=== PATIENT | male | born 1955 | race Caucasian/White ===

== ENCOUNTER → 2018-03-12 13:58 | Outpatient (REF) | payer MEDICAID, SELFPAY ==
[2018-03-12 18:55] LABS: Anion Gap 12.5 mmol/L (3-11); BUN 11 mg/dL (7-18); CO2 25.5 mmol/L (21.0-32.0); CREATININE 1.04 mg/dL (0.70-1.30); Chloride 103 mmol/L (98-107); Glucose 117 mg/dL (70-100); Magnesium 1.4 mg/dL (1.8-2.4); Potassium 3.5 mmol/L (3.5-5.1); Sodium 141 mmol/L (136-145)
== END ==
LOC: NCHCN 13:58
PROVIDERS: PCP Family Medicine; Visit Provider Family Medicine
DX: I10 Essential (primary) hypertension (principal); E87.6 Hypokalemia; E83.42 Hypomagnesemia
CPT/HCPCS: 80048; 83735

== ENCOUNTER 2018-05-15 15:51 | Outpatient (REF) | payer MEDICAID, SELFPAY ==
[2018-05-15 18:43] LABS: Abs Immature Grans 0.02 k/cumm (0.0-0.09); Absolute Basophil Count 0.02 k/cumm (0.0-0.2); Absolute Eosinophil Count 0.08 k/cumm (0.0-0.7); Absolute Lymphocyte Count 1.94 k/cumm (1.2-3.4); Absolute Monocyte Count 0.55 k/cumm (0.11-0.7); Absolute Neutrophil Count 5.25 k/cumm (1.2-6.7); Basophils % 0.3; HCT 42.9 % (40.0-50.0); HGB 14.9 g/dL (13.5-17.5); Immature Grans % 0.3; Lymphocytes % 24.7; Mean Corp. HGB Concentration 34.7 g/dL (32.0-36.0); Mean Corpuscular Hemoglobin 32.3 pg (27.0-33.0); Mean Corpuscular Volume 92.9 fL (80-95); Mean Platelet Volume 11.6 fL (8.0-11.0); Neutrophils % 66.7; Platelet Count 258 x1000/uL (130-400); RBC 4.62 m/cumm (4.50-6.00); RBC Distribution Width 13.2 % (11.8-14.1); White Blood Cell Count 7.86 k/cumm (4.4-10.8)
[2018-05-15 22:19] LABS: Magnesium 1.8 mg/dL (1.8-2.4)
== END 2018-05-15 16:11 ==
LOC: NCHCN 15:51
PROVIDERS: PCP Family Medicine; Visit Provider Family Medicine
DX: K92.1 Melena (principal)
CPT/HCPCS: 83735; 85025

== ENCOUNTER 2018-10-15 10:42 | Outpatient (REF) | payer MEDICAID, SELFPAY ==
[2018-10-15 19:47] LABS: Abs Immature Grans 0.02 k/cumm (0.0-0.09); Absolute Basophil Count 0.02 k/cumm (0.0-0.2); Absolute Eosinophil Count 0.13 k/cumm (0.0-0.7); Absolute Lymphocyte Count 1.65 k/cumm (1.2-3.4); Absolute Monocyte Count 0.61 k/cumm (0.11-0.7); Absolute Neutrophil Count 5.43 k/cumm (1.2-6.7); Basophils % 0.3; Eosinophils % 1.7; HCT 43.1 % (40.0-50.0); HGB 14.8 g/dL (13.5-17.5); Immature Grans % 0.3; Mean Corp. HGB Concentration 34.3 g/dL (32.0-36.0); Mean Corpuscular Hemoglobin 32.4 pg (27.0-33.0); Mean Corpuscular Volume 94.3 fL (80-95); Mean Platelet Volume 11.9 fL (8.0-11.0); Monocytes % 7.8; Neutrophils % 68.9; Platelet Count 211 x1000/uL (130-400); RBC 4.57 m/cumm (4.50-6.00); RBC Distribution Width 13.1 % (11.8-14.1); White Blood Cell Count 7.86 k/cumm (4.4-10.8)
[2018-10-15 19:53] LABS: ALT 33 U/L (12-78); AST 31 U/L (15-37); Albumin 3.4 g/dL (3.4-5.0); Alkaline Phosphatase 117 U/L (46-116); Anion Gap 11.6 mmol/L (3-11); BUN 16 mg/dL (7-18); Bilirubin, Total 0.5 mg/dL (0.2-1.0); CO2 28.4 mmol/L (21.0-32.0); CREATININE 1.16 mg/dL (0.70-1.30); Calcium 9.1 mg/dL (8.5-10.1); Chloride 101 mmol/L (98-107); Cholesterol 239 mg/dL (50-200); Glucose 116 mg/dL (70-100); HDL Cholesterol 32 mg/dL (40-60); LDL CHOLESTEROL 54 mg/dL (<100); Magnesium 1.3 mg/dL (1.8-2.4); Potassium 3.6 mmol/L (3.5-5.1); Sodium 141 mmol/L (136-145); Total Protein 7.1 g/dL (6.4-8.2); Triglyceride 958 mg/dL (30-150)
== END 2018-10-15 11:02 ==
LOC: NCHCN 10:42
PROVIDERS: PCP Family Medicine; Visit Provider Family Medicine
DX: E78.5 Hyperlipidemia, unspecified (principal); R74.0 Nonspecific elevation of levels of transaminase and lactic acid dehydrogenase [LDH]; E83.42 Hypomagnesemia
CPT/HCPCS: 80053; 80061; 83721; 83735; 85025

== ENCOUNTER 2018-12-11 11:57 | Emergency (ER) | payer MEDICAID, SELFPAY ==
[2018-12-11] VITALS (27 sets, daily range): BP systolic 86–131; BP diastolic 56–86; PULSE 67–102; RESP 1–28; TEMP 36.1; O2SAT 91–97
--- NOTE | 2018-12-11 12:16 | DI.CT_ITS ---
SYMPTOMS/DIAGNOSIS: RIGHT LOW RIB PAIN AND FLANK PAIN, ? STONE NONCONTRAST CT OF THE CHEST, ABDOMEN AND PELVIS: CHEST: Coronary artery calcifications and mild aortic calcifications are seen. There are no pleural or pericardial effusions or evidence of adenopathy. There are emphysematous changes, both paraseptal and panlobular, greatest in the upper lobes. No infiltrates or pulmonary nodules are identified. There is no evidence of pneumothorax. There is an old right lower anterior rib fracture. No acute rib fractures are identified. The thoracic spine shows degenerative changes with no evidence of fracture. ABDOMEN AND PELVIS: The exam is limited by patient motion in the mid portion of the exam, as well as body habitus. The liver shows fatty infiltration. No focal liver lesions or biliary dilatation is seen. The gallbladder, pancreas, adrenals and kidneys are unremarkable. There is no evidence of renal calculi or hydronephrosis. The prostate is not enlarged. The urinary bladder is unremarkable. There are small bilateral fatty-containing inguinal hernias, right greater than left. There is no bowel dilatation or inflammatory change. The evaluation of portions of the bowel is limited due to motion. Diverticula are seen in the sigmoid, which is redundant. The aorta shows calcification but is normal in diameter. Degenerative changes are seen in the lumbar spine, greatest at L2-3 and L1-2. IMPRESSION: No evidence of urinary tract calculi or other acute abnormality. There is fatty infiltration of the liver. Portions of the bowel are not well evaluated due to motion.
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
[2018-12-11 12:34] LABS: Bilirubin Negative (Negative); Blood Negative (Negative); Clarity Clear; Glucose Negative (Negative); Ketones Negative (Negative); Leukocyte Esterase Negative (Negative); Nitrite Negative (Negative); Specific Gravity <= 1.005 (1.005-1.025); Urobilinogen 0.2 EU/dL (Up TO 0.2); pH 5.5 (5-8)
[2018-12-11] MEDS: Acetaminophen 500 MG TAB 1000 MG PO (12:45)
[2018-12-11] MEDS: Lidocaine 5% Patch 1 PATCH TP (12:50)
[2018-12-11] MEDS: methylPREDNISolone SUCC 125 MG VIAL IVP (12:50)
[2018-12-11 12:52] LABS: Abs Immature Grans 0.04 k/cumm (0.0-0.09); Absolute Basophil Count 0.02 k/cumm (0.0-0.2); Absolute Eosinophil Count 0.14 k/cumm (0.0-0.7); Absolute Monocyte Count 0.51 k/cumm (0.11-0.7); Absolute Neutrophil Count 3.75 k/cumm (1.2-6.7); Basophils % 0.3; Eosinophils % 2.3; HCT 46.2 % (40.0-50.0); HGB 15.8 g/dL (13.5-17.5); Immature Grans % 0.6; Lymphocytes % 27.6; Mean Corp. HGB Concentration 34.2 g/dL (32.0-36.0); Mean Corpuscular Hemoglobin 31.9 pg (27.0-33.0); Mean Corpuscular Volume 93.1 fL (80-95); Monocytes % 8.3; Neutrophils % 60.9; Platelet Count 266 x1000/uL (130-400); RBC 4.96 m/cumm (4.50-6.00); RBC Distribution Width 12.9 % (11.8-14.1); White Blood Cell Count 6.16 k/cumm (4.4-10.8)
[2018-12-11 12:58] LABS: ALT 67 U/L (12-78); AST 41 U/L (15-37); Albumin 3.7 g/dL (3.4-5.0); Alkaline Phosphatase 114 U/L (46-116); Anion Gap 10.9 mmol/L (3-11); BUN 11 mg/dL (7-18); Bilirubin, Total 0.5 mg/dL (0.2-1.0); CO2 26.1 mmol/L (21.0-32.0); CREATININE 1.11 mg/dL (0.70-1.30); Chloride 97 mmol/L (98-107); Glucose 104 mg/dL (70-100); Lipase 217 U/L (73-393); Potassium 4.4 mmol/L (3.5-5.1); Sodium 134 mmol/L (136-145); Total Protein 8.5 g/dL (6.4-8.2)
[2018-12-11] MEDS: Albuterol/Ipratropium 3 ML UPD VIAL 6 ML UPD (13:00)
[2018-12-11 13:03] LABS: Calcium 9.8 mg/dL (8.5-10.1)
[2018-12-11 13:05] LABS: Troponin I < 0.02 ng/mL (0.00-0.06)
== END 2018-12-11 16:18 | disposition home or self-care (01) ==
PROVIDERS: Emergency Provider Student in an Organized Health Care Education/Training Program; PCP Family Medicine
DX: R07.81 Pleurodynia (principal); I48.91 Unspecified atrial fibrillation; J44.9 Chronic obstructive pulmonary disease, unspecified; Z79.01 Long term (current) use of anticoagulants; F17.210 Nicotine dependence, cigarettes, uncomplicated
CPT/HCPCS: 36415; 71250; 80053; 83690; 93005; 94640; 96374; 99285; 74176; 81003; 84484; 85025; 93010; J2930; J7620

== ENCOUNTER 2019-01-09 12:40 | Outpatient (REF) | payer MEDICAID, SELFPAY ==
[2019-01-09 13:40] LABS: Cholesterol 258 mg/dL (50-200); HDL Cholesterol 31 mg/dL (40-60); Magnesium 1.6 mg/dL (1.8-2.4); Triglyceride 641 mg/dL (30-150)
[2019-01-09 14:14] LABS: LDL CHOLESTEROL 102 mg/dL (<100)
== END 2019-01-09 13:00 ==
LOC: NCHCN 12:40
PROVIDERS: PCP Family Medicine; Visit Provider Family Medicine
DX: E83.42 Hypomagnesemia (principal); E78.5 Hyperlipidemia, unspecified
CPT/HCPCS: 80061; 83721; 83735

== ENCOUNTER 2019-03-14 00:13 | Outpatient (CLI) | payer MEDICAID, SELFPAY ==
--- NOTE | 2019-03-14 13:20 | DI.CTLCSR_ITS ---
SYMPTOMS/DIAGNOSIS: SMOKER, F17.200 CT CHEST, LOW DOSE LUNG CANCER SCREENING PROTOCOL: CT examination of the chest was performed utilizing low dose lung cancer screening protocol. Images obtained through the upper abdomen show unremarkable appearance of visualized portions of liver and spleen. There are marked pulmonary central lobular and subpleural emphysematous changes. Small areas of apparent scarring noted bilaterally. No pulmonary nodules seen. The tracheobronchial tree appears intact. No mediastinal or hilar adenopathy. No cardiac enlargement. CONCLUSION: Pulmonary emphysema. No pulmonary nodule. Lung-RAD Category: 1- Negative Lung- RAD Management of Findings: Continue annual LDCT screening in 12 months
== END 2019-03-14 00:33 ==
PROVIDERS: PCP Family Medicine; Visit Provider Internal Medicine
DX: F17.200 Nicotine dependence, unspecified, uncomplicated (principal); Z12.2 Encounter for screening for malignant neoplasm of respiratory organs; J43.9 Emphysema, unspecified
CPT/HCPCS: G0297

== ENCOUNTER 2019-04-09 14:21 | Outpatient (REF) | payer MEDICAID, SELFPAY ==
[2019-04-09 14:55] LABS: Anion Gap 11.7 mmol/L (3-11); BUN 14 mg/dL (7-18); CO2 24.3 mmol/L (21.0-32.0); CREATININE 1.02 mg/dL (0.70-1.30); Calcium 8.9 mg/dL (8.5-10.1); Chloride 98 mmol/L (98-107); Cholesterol 188 mg/dL (50-200); Glucose 103 mg/dL (70-100); HDL Cholesterol 29 mg/dL (40-60); Magnesium 1.7 mg/dL (1.8-2.4); Sodium 134 mmol/L (136-145); Triglyceride 516 mg/dL (30-150)
[2019-04-09 15:19] LABS: LDL CHOLESTEROL 85 mg/dL (<100)
== END 2019-04-09 14:41 ==
LOC: NCHCN 14:21
PROVIDERS: PCP Family Medicine; Visit Provider Family Medicine
DX: E83.42 Hypomagnesemia (principal); E87.1 Hypo-osmolality and hyponatremia; E78.5 Hyperlipidemia, unspecified
CPT/HCPCS: 80048; 80061; 83721; 83735

== ENCOUNTER 2019-04-19 15:37 | Outpatient (CLI) | payer MEDICAID, SELFPAY ==
[2019-04-19 16:04] LABS: HCT 42.3 % (40.0-50.0); HGB 14.7 g/dL (13.5-17.5); Mean Corp. HGB Concentration 34.8 g/dL (32.0-36.0); Mean Corpuscular Hemoglobin 32.7 pg (27.0-33.0); Mean Corpuscular Volume 94.2 fL (80-95); Mean Platelet Volume 10.1 fL (8.0-11.0); Platelet Count 243 x1000/uL (130-400); RBC 4.49 m/cumm (4.50-6.00); RBC Distribution Width 13.3 % (11.8-14.1); White Blood Cell Count 8.08 k/cumm (4.4-10.8)
[2019-04-19 16:15] LABS: Anion Gap 11.9 mmol/L (3-11); BUN 12 mg/dL (7-18); C-Reactive Protein 0.91 mg/dL (0.0-0.3); CO2 23.1 mmol/L (21.0-32.0); CREATININE 1.31 mg/dL (0.70-1.30); Chloride 101 mmol/L (98-107); Estimated GFR 55.44 (mL/min/1.73m2); Glucose 122 mg/dL (70-100); Magnesium 1.7 mg/dL (1.8-2.4); Potassium 4.1 mmol/L (3.5-5.1); Sodium 136 mmol/L (136-145)
[2019-04-19 16:16] LABS: Troponin I < 0.05 ng/mL (0.00-0.06)
--- NOTE | 2019-04-19 16:19 | DI.RAD_ITS ---
EXAM: XR CHEST 2V PA LATERAL INDICATION: SOB R06.02. COMPARISON: CHEST 2 VIEWS PA,LAT from 02/08/2017 TECHNIQUE: 2D digital imaging was performed. FINDINGS: The heart is at the upper limits of normal in size. Lungs are generally clear with mild changes of s carring and hyperinflation. No pleural effusion seen. IMPRESSION: No evidence of acute process
== END 2019-04-19 15:57 ==
PROVIDERS: PCP Family Medicine; Visit Provider Family Medicine
DX: R06.02 Shortness of breath (principal)
CPT/HCPCS: 36415; 80048; 85027; 71046; 83735; 84484; 86140

== ENCOUNTER 2020-08-04 00:50 | Outpatient (CLI) | payer MEDICARE, MEDICAID, SELFPAY ==
--- NOTE | 2020-08-04 13:45 | DI.CTLCSR_ITS ---
EXAM: CT CHEST LUNG CANCER SCREEN CLINICAL HISTORY: SCREENING FOR LUNG CA,FORMER SMOKER, Z87.891 TECHNIQUE: Imaging Protocol: Axial computed tomography images with coronal and sagittal reformatted images were created and reviewed COMPARISON: CT CT CHEST LUNG CANCER SCREEN from 03/14/2019 FINDINGS: Tracheobronchial tree: Patent where visualized. Mediastinum and Celia: No dominant adenopathy or fluid collection. Pulmonary parenchyma: No consolidation or dominant measurable mass. Centrilobular and paraseptal emph ysematous changes are present. There is scarring or atelectasis in the left lingula. Lung Nodules: None. Pleura: No effusion or pneumothorax. Heart: The heart is not dilated. Moderate coronary artery calcifications are present. No significant pericardial effusion is present. Aorta: Thoracic aorta non-dilated.Moderate atherosclerosis. Upper abdomen: Unremarkable. Bones: Degenerative changes are seen in the thoracic spine. There is an old healed right rib fractur e. Soft Tissues: Bilateral gynecomastia. IMPRESSION: No pulmonary nodules. Lung RADS Cat 1 - Negative: No nodules and definitely benign nodules Lung-RADS 1.0 CATEGORIES: Category 0 - Prior chest CT exam(s) being located for comparison. Category 1 - Annual screening in 12 months. No nodules or definitely benign nodules. Category 2 - Annual screening in 12 months. Benign appearance. Nodules with low likelihood of becomin g active cancer. Category 3 - 6-month follow-up. Probably benign. Short-term follow-up suggested. Nodules with low lik elihood of becoming active cancer. Category 4A - 3-month follow-up and CT/PET if >8 mm in size. Suspicious finding. Findings which requi re additional testing. Category 4B - Findings which require additional testing and tissue sampling. Suspicious finding. C Added to Any of the Above - History of prior lung cancer screening. S Added to Any of the Above - Significant unexpected other finding. RADIATION DOSE DELIVERED: 97.97mGy.cm Total DLP DATA REPOSITORY: All CT scans at this facility are submitted to the National Radiology Data Registry (NRDR) Dose Index Registry (DIR) with the [employer] (ACR). RADIATION OPTIMIZATION: All CT scans at this facility use at least one of these dose optimization te chniques: automated exposure control; mA and/or kV adjustment per patient size (includes targeted exa ms where dose is matched to clinical indication); or iterative reconstruction.
== END 2020-08-04 01:10 ==
PROVIDERS: PCP Family Medicine; Visit Provider Family Medicine
DX: Z87.891 Personal history of nicotine dependence (principal)
CPT/HCPCS: 71271

== ENCOUNTER 2020-09-21 17:22 | Outpatient (REF) | payer MEDICARE, MEDICAID, SELFPAY ==
[2020-09-21 18:52] LABS: HCT 44.1 % (40.0-50.0); HGB 15.1 g/dL (13.5-17.5); MCH 32.7 pg (27.0-33.0); MCHC 34.2 % (32.0-36.0); MCV 95.5 fL (80-95); MPV 11.3 fL (8.0-11.0); Platelet Count 253 10^3/uL (130-400); RBC 4.62 10^6/uL (4.36-5.78); RDW 12.4 % (11.8-14.1); RDW-SD 43.4 fL; WBC 8.68 10^3/uL (4.4-10.8)
[2020-09-21 19:14] LABS: ALT 27 U/L (16-63); AST 21 U/L (15-37); Albumin 3.4 g/dL (3.4-5.0); Alkaline Phosphatase 96 U/L (46-116); Anion Gap 11.8 mmol/L (3-11); BUN 18 mg/dL (7-18); Bilirubin, Total 0.3 mg/dL (0.2-1.0); CO2 27.2 mmol/L (21.0-32.0); CREATININE 1.1 mg/dL (0.70-1.30); Chloride 100 mmol/L (98-107); Glucose 111 mg/dL (74-106); Magnesium 1.8 mg/dL (1.8-2.4); NT-proBNP 146 pg/mL (<300); Potassium 4.2 mmol/L (3.5-5.1); Sodium 139 mmol/L (136-145); Total Protein 7.4 g/dL (6.4-8.2)
== END 2020-09-21 17:23 | disposition home or self-care (01) ==
LOC: NCHCN 17:22
PROVIDERS: PCP Family Medicine; Visit Provider Family Medicine
DX: R06.02 Shortness of breath (principal); E83.42 Hypomagnesemia; E87.1 Hypo-osmolality and hyponatremia
CPT/HCPCS: 80053; 85027; 83735; 83880

== ENCOUNTER 2021-01-27 19:56 | Outpatient (REF) | payer MEDICARE, MEDICAID, SELFPAY ==
[2021-01-27 20:38] LABS: HCT 47.1 % (40.0-50.0); HGB 15.7 g/dL (13.5-17.5); MCHC 33.3 % (32.0-36.0); MCV 98.9 fL (80-95); MPV 11.6 fL (8.0-11.0); Platelet Count 276 10^3/uL (130-400); RBC 4.76 10^6/uL (4.36-5.78); RDW 12.2 % (11.8-14.1); RDW-SD 44.6 fL; WBC 7.69 10^3/uL (4.4-10.8)
[2021-01-27 20:56] LABS: Anion Gap 8.4 mmol/L (3-11); BUN 25 mg/dL (7-18); CO2 31.6 mmol/L (21.0-32.0); CREATININE 1.3 mg/dL (0.70-1.30); Calcium 9.4 mg/dL (8.5-10.1); Chloride 101 mmol/L (98-107); Estimated GFR 55.58 (mL/min/1.73m2); Glucose 112 mg/dL (74-106); NT-proBNP 103 pg/mL (<300); Sodium 141 mmol/L (136-145)
== END 2021-01-27 19:57 | disposition home or self-care (01) ==
LOC: NCHCN 19:56
PROVIDERS: PCP Family Medicine; Visit Provider Family Medicine
DX: R06.02 Shortness of breath (principal); E87.1 Hypo-osmolality and hyponatremia; E83.42 Hypomagnesemia
CPT/HCPCS: 80048; 85027; 83735; 83880; 84181

== ENCOUNTER 2021-02-23 02:00 | Outpatient (CLI) | payer MEDICARE, MEDICAID, SELFPAY ==
--- NOTE | 2021-02-23 14:00 | DI.US_ITS ---
APPROVED REPORT EXAM: Comprehensive 2D, Doppler, and color-flow Echocardiogram Patient Location: Out-Patient Sr. Director: Marcia Slaughter RDCS (AE) Indications: SOB, COPD, Clinica fluid overload Other Information Study Quality: Technically Difficult. Technically limited study due to body habitus. Conclusion Left Ventricle : The left ventricle is normal size. The left ventricular systolic function is normal. The left ventricular ejection fraction is within the normal range. There is normal left ventricular wall thickness. There is normal LV segmental wall motion. The left ventricular diastolic function is normal. LVEF is 60%. Right Ventricle : The right ventricle is normal size. The right ventricular systolic function is norm al. The RVSP is 17.5 mmHg. Atria : The left atrium size is normal. The right atrium size is normal. Mitral Valve : Mild mitral annular calcification. Mild mitral regurgitation. No evidence of mitral va lve stenosis. Great Vessels : The aortic root is normal in size. The ascending aorta is normal in size. The IVC col lapses <50% with inspiration. Please see remainder of study for further details. Wall motion Left Ventricle The left ventricle is normal size. The left ventricular systolic function is normal. The left ventric ular ejection fraction is within the normal range. There is normal left ventricular wall thickness. T here is normal LV segmental wall motion. The left ventricular diastolic function is normal. There is no ventricular septal defect visualized. LVEF is 60%. Right Ventricle The right ventricle is normal size. The right ventricular systolic function is normal. The RVSP is 17 .5 mmHg. Atria The left atrium size is normal. The right atrium size is normal. The interatrial septum is intact wit h no evidence for an atrial septal defect. Aortic Valve The aortic valve is normal in structure. Aortic valve is trileaflet. There is no aortic valvular sten osis. No aortic regurgitation is present. Mitral Valve Mild mitral annular calcification. No evidence of mitral valve stenosis. Mild mitral regurgitation. Tricuspid Valve The tricuspid valve is normal in structure. There is no tricuspid valve stenosis. Trace tricuspid reg urgitation. Pulmonic Valve The pulmonary valve is normal in structure. There is no pulmonic valvular stenosis. There is no pulmo ailyn valvular regurgitation. Great Vessels The aortic root is normal in size. The ascending aorta is normal in size. The IVC collapses <50% with inspiration. Pericardium There is no pericardial effusion. 2D Dimensions IVSD d PLAX 1.04 cm M: 0.6-1.2 LV Vol A2C d MOD 98.4 mL LVPW d PLAX 1.01 cm M: 0.6 - 1.2 LV Vol A4C d MOD 104.3 mL LVID d PLAX 4.70 cm M: 4.2 - 5.8 LA vol/ BSA A2C s A-L 20.3 mL/m2 LVDs 3.25 cm M: 2.5 - 4.0 LA vol/ BSA A4C s A-L 29.9 mL/m2 Ao Root d 3.16 cm M: 3.1 - 3.7 LA Vol/ BSA Biplane s A-L 25.1 mL/m2 RA Area A4C 16.26 cm2 LA Area A4C s MOD 21.49 cm2 RA Vol/ BSA A4C s A-L 21.1 mL/m2 LA Area A2C s MOD 17.38 cm2 Ao Asc Diam d 3.36 cm M: 2.6 - 3.4 LV EF A4C MOD 60.4 % LV EF Teichholz 58.0 % LV EF A2C MOD 60.4 % LVEF (Issa's) 60.93 % M: 52 - 72 LV EF Biplane MOD 60.9 % LV Volume 76.97 mL M: 62 - 150 SV 64.28 mL LV Volume Index 35.47 mL/m2 M: 34 - 74 SV Index 29.52 mL/m2 LV Vol Biplane MOD 105.5 mL FS 30.50 % M-Mode TAPSE 2.22 cm (M/F) >1.7 LV Diastology MV E' medial 0.088 (>0.07 m/s) E/A Ratio 0.9 LV E/e MED 10.00 (<14) MV E Vmax 0.88 (0.4-1.3 m/s) MV E' lateral 0.108 (>0.1 m/s) MV A Vmax 0.95 (0.4-1.3 m/s) LV E/e LAT 8.20 (<14) MV E/A Ratio 0.92 MV E/E' medial 10.05 MV E/E' lateral 8.22 Aortic Valve LVOT Area 3.61 cm2 AoV Area Vmax 3.11 cm2 LVOT Vmax 1.13 m/s AoV Area/ BSA (Vmax) 1.43 cm2/m2 LVOT Mean Wale. 0.71 m/s JACQUE Mean Wale. 2.97 cm2 LVOT Peak Grad 5.1 mmHg JACQUE Mean Wale. Index 1.36 cm2/m2 LVOT Mean Grad 2.4 mmHg LVOT VTI 0.172 m LVOT Diam s 2.10 cm AoV Vmax 1.31 m/s Velocity Ratio 0.86 AoV Mean Wale. 0.87 m/s AoV Peak Grad 6.9 mmHg LVOT SV 62.12 mL AoV Mean Grad 3.5 mmHg AoV VTI 0.214 m AoV Area VTI 2.90 cm2 AoV Area/ BSA (VTI) 1.33 cm/m2 Mitral Valve MV DT 239 (160-240 msec) MR Vmax 4.84 m/s MV PHT 69 msec MR VTI 1.407 m MV Area PHT 3.17 cm2 MR Peak Grad 93.7 mmHg MV VTI 0.328 m MR Mean Grad 73.8 mmHg MV Area VTI 1.89 (4.0-6.0 cm2) Pulmonary Valve PV Vmax 1.05 (0.5-1.5 m/s) RVOT Peak Gr. 3.39 mmHg PV Peak Grad 4.4 mmHg RVOT Mean Gr. 1.95 mmHg PV Mean Grad 2.5 mmHg RVOT VTI 0.153 m PV VTI 0.171 m RVOT Vmax 0.92 m/s Tricuspid Valve TR Peak Grad 14.5 mmHg TR Vmax 1.91 m/s RA Pressure 3.00 mmHg RVSP (TR) 17.5 mmHg
== END 2021-02-23 02:20 ==
PROVIDERS: PCP Family Medicine; Visit Provider Family Medicine
DX: R06.02 Shortness of breath (principal); J44.9 Chronic obstructive pulmonary disease, unspecified; I34.0 Nonrheumatic mitral (valve) insufficiency; E87.70 Fluid overload, unspecified
CPT/HCPCS: 93306

== ENCOUNTER → 2021-11-19 00:15 | Outpatient (CLI) | payer MEDICARE, MEDICAID, SELFPAY ==
--- NOTE | 2021-11-19 13:04 | DI.CTLCSR_ITS ---
Exam(s) CT CHEST LUNG CANCER SCREEN EXAM: CT CHEST LUNG CANCER SCREEN CLINICAL HISTORY: SCREENING FOR LUNG CA, FORMER SMOKER, Z87.891 TECHNIQUE: Imaging Protocol: Axial computed tomography images with coronal and sagittal reformatted images were created and reviewed COMPARISON: CT CT CHEST LUNG CANCER SCREEN from 08/04/2020 FINDINGS: Tracheobronchial tree: Patent where visualized. Mediastinum and Celia: No dominant adenopathy or fluid collection. Pulmonary parenchyma: No consolidat ion or dominant measurable mass. Paraseptal and centrilobular emphysema greater in the upper lobes. No infiltrates Lung Nodules: Circumscribed 4 millimeter right upper lobe nodule. Additional peripheral 3 x 4 millim eter nodule right upper lobe. Not seen previously. Pleura: No effusion or pneumothorax. Heart: The heart is not dilated. Moderate coronary artery calcifications are seen. Aorta: Thoracic aorta non-dilated. Mild atherosclerotic changes. Upper abdomen: Unremarkable. Bones: Degenerative changes. Soft Tissues: Bilateral gynecomastia. IMPRESSION: Two 4 millimeter new nodules right upper lobe Lung RADS Cat 3 - Probably Benign: Probably benign finding(s) - short term follow-up suggested; inclu de nodules with a low likelihood of becoming a clinically active cancer. Lung-RADS 1.0 CATEGORIES: Category 0 - Prior chest CT exam(s) being located for comparison. Category 1 - Annual screening in 12 months. No nodules or definitely benign nodules. Category 2 - Annual screening in 12 months. Benign appearance. Nodules with low likelihood of becomin g active cancer. Category 3 - 6-month follow-up. Probably benign. Short-term follow-up suggested. Nodules with low lik elihood of becoming active cancer. Category 4A - 3-month follow-up and CT/PET if >8 mm in size. Suspicious finding. Findings which requi re additional testing. Category 4B - Findings which require additional testing and tissue sampling. Category 4X - Category 3 or 4 nodules with additional features or imaging findings that increases the suspicion of malignancy. Modifier S- Potentially clinically significant findings (non lung cancer) RADIATION DOSE DELIVERED: 101.57mGy.cm Total DLP 2.21mGy CTDIvol DATA REPOSITORY: All CT scans at this facility are submitted to the National Radiology Data Registry (NRDR) Dose Index Registry (DIR) with the [employer] (ACR). RADIATION OPTIMIZATION: All CT scans at this facility use at least one of these dose optimization te chniques: automated exposure control; mA and/or kV adjustment per patient size (includes targeted exa ms where dose is matched to clinical indication); or iterative reconstruction.
== END ==
PROVIDERS: PCP Family Medicine; Visit Provider Family Medicine
DX: Z12.2 Encounter for screening for malignant neoplasm of respiratory organs (principal); Z87.891 Personal history of nicotine dependence; J43.2 Centrilobular emphysema; R91.8 Other nonspecific abnormal finding of lung field
CPT/HCPCS: 71271

== ENCOUNTER 2022-01-03 16:21 | Outpatient (REF) | payer MEDICARE, MEDICAID, SELFPAY ==
[2022-01-03 16:57] LABS: Anion Gap 13.4 mmol/L (3-11); BUN 13 mg/dL (7-18); CO2 22.6 mmol/L (21.0-32.0); CREATININE 0.9 mg/dL (0.70-1.30); Calcium 9.1 mg/dL (8.5-10.1); Chloride 103 mmol/L (98-107); Cholesterol 195 mg/dL (<200); Glucose 105 mg/dL (74-106); HDL Cholesterol 33 mg/dL (40-60); Magnesium 1.8 mg/dL (1.8-2.4); Potassium 4.6 mmol/L (3.5-5.1); Sodium 139 mmol/L (136-145); Triglyceride 671 mg/dL (<150)
[2022-01-03 17:15] LABS: LDL CHOLESTEROL 79 mg/dL (<100)
== END 2022-01-03 16:22 | disposition home or self-care (01) ==
LOC: NCHCN 16:21
PROVIDERS: PCP Family Medicine; Visit Provider Family Medicine
DX: I10 Essential (primary) hypertension (principal); E78.5 Hyperlipidemia, unspecified; E83.42 Hypomagnesemia
CPT/HCPCS: 80048; 80061; 83721; 83735

== ENCOUNTER 2023-02-24 17:41 | Outpatient (REF) | payer MEDICARE, MEDICAID, SELFPAY ==
[2023-02-24 17:48] LABS: Hemoglobin A1C 5.7 % (<5.7)
[2023-02-24 18:29] LABS: Anion Gap 10.5 mmol/L (3-11); BUN 14 mg/dL (7-18); CO2 27.5 mmol/L (21.0-32.0); Calcium 9.1 mg/dL (8.5-10.1); Chloride 102 mmol/L (98-107); Cholesterol 149 mg/dL (<200); Estimated GFR 83.01 (mL/min/1.73m2); Glucose 108 mg/dL (74-106); HDL Cholesterol 34 mg/dL (40-60); Magnesium 1.8 mg/dL (1.8-2.4); Potassium 5.1 mmol/L (3.5-5.1); Sodium 140 mmol/L (136-145); Triglyceride 448 mg/dL (<150)
[2023-02-24 18:52] LABS: LDL CHOLESTEROL 52 mg/dL (<100)
== END 2023-02-24 17:42 | disposition home or self-care (01) ==
LOC: NCHCN 17:41
PROVIDERS: PCP Family Medicine; Visit Provider Family Medicine
DX: E83.42 Hypomagnesemia (principal); R73.03 Prediabetes; I10 Essential (primary) hypertension; E78.5 Hyperlipidemia, unspecified
CPT/HCPCS: 80048; 80061; 83721; 83036; 83735

== ENCOUNTER 2023-03-26 11:45 | Emergency (ER) | payer MEDICARE, SELFPAY ==
--- NOTE | 2023-03-26 11:45 | RT.EKG_ITS ---
APPROVED REPORT Exam: Resting ECG Reason for Exam: chest pain Patient Location: E HR:143 bpm ECG Measurements Heart Rate 143 AXIS NH [id number] P [id number] QRSd 123 QRS 180 QT 313 T -16 QTc 484 Conclusion Atrial flutter with 2:[address]. [address] segment or T wave abnormalities to suggest occlusive MN
[2023-03-26 11:47] VITALS: BP 115/76; PULSE 144; RESP 30; O2SAT 93
[2023-03-26 12:15] VITALS: BP 106/60; PULSE 158
[2023-03-26] MEDS: dilTIAZem 25 MG/5 ML VIAL 10 MG IVP ×2 (12:15→12:30)
[2023-03-26 12:30] VITALS: BP 102/60; PULSE 128
[2023-03-26 12:33] LABS: Abs Immature Grans 0.02 10^3/uL (0.0-0.06); Absolute Basophil Count 0.03 10^3/uL (0.0-0.2); Absolute Lymphocyte Count 0.96 10^3/uL (1.2-3.4); Absolute Monocyte Count 0.43 10^3/uL (0.1-0.8); Absolute Neutrophil Count 5.12 10^3/uL (1.2-6.7); Basophils % 0.5; Eosinophils % 1.5; HCT 47.5 % (40.0-50.0); HGB 15.6 g/dL (13.5-17.5); Immature Grans % 0.3; Lymphocytes % 14.4; MCH 30.4 pg (27.0-33.0); MCHC 32.8 % (32.0-36.0); MCV 93 fL (80-95); MPV 9.3 fL (8.0-11.0); Monocytes % 6.5; Neutrophils % 76.8; Platelet Count 204 10^3/uL (130-400); RBC 5.13 10^6/uL (4.36-5.78); RDW 13.5 % (11.8-14.1); RDW-SD 46.5 fL; WBC 6.66 10^3/uL (4.4-10.8)
[2023-03-26] MEDS: dilTIAZem 30 MG TAB 60 MG PO (12:49)
[2023-03-26 12:53] LABS: ALT 20 U/L (16-63); AST 19 U/L (15-37); Albumin 3.1 g/dL (3.4-5.0); Alkaline Phosphatase 100 U/L (46-116); BUN 17 mg/dL (7-18); Bilirubin, Total 0.4 mg/dL (0.2-1.0); Calcium 9.1 mg/dL (8.5-10.1); Chloride 102 mmol/L (98-107); Estimated GFR 83.01 (mL/min/1.73m2); Glucose 137 mg/dL (74-106); Magnesium 1.6 mg/dL (1.8-2.4); Potassium 4.2 mmol/L (3.5-5.1); Sodium 138 mmol/L (136-145); Total Protein 7.3 g/dL (6.4-8.2); Troponin I < 50 ng/L (<or=60)
--- NOTE | 2023-03-26 12:55 | ED.GENADUL_ITS ---
Discharge Plan Disposition Patient Disposition: Against Medical Advice Discharge Details Clinical Impression: Atrial fibrillation with rapid ventricular response Primary Care Provider: Ricky Monteiro ED Provider: Neftali Douglas Home Meds and New Rx's Prescriptions: New diltiazem HCl 180 mg capsule,extended release 24 hr 180 mg PO DAILY Qty: 10 0RF Continued furosemide 40 MG tablet 80 mg PO DAILY AM Qty: 90 metoprolol tartrate 25 MG tablet 50 mg PO BID Qty: 180 nitroglycerin [Nitrostat] 0.4 mg tablet, sublingual 0.4 mg sublingual Q5M PRN Rx Instructions: do not exceed 3 doses per episode gemfibrozil 600 MG tablet 600 mg PO BID losartan 100 MG tablet 100 mg PO DAILY omeprazole 20 MG capsule,delayed release(DR/EC) 20 mg PO DAILY albuterol sulfate [ProAir HFA] 200 PUFF HFA aerosol inhaler 2 puff Inhalation Q4H PRN PRN magnesium oxide 400 MG tablet 400 mg PO BID Qty: 20 0RF fluticasone propion-salmeterol [Advair Diskus] 1 EACH blister with device 1 puff Inhalation DAILY potassium chloride 10 mEq Tablet Extended Release 10 meq PO DAILY Xarelto 20 mg Tablet 20 mg PO DAILY lidocaine [Lidoderm] 1 PATCH patch 1 patch Topical Q24H Qty: 4 0RF Combivent 200 PUFF aerosol 2 puff Inhalation DAILY Spiriva with HandiHaler 1 PUFF capsule, w/inhalation device 1 puff Inhalation DAILY 0RF Discharge Instructions Instructions: A-fib (Atrial Fibrillation) (ED) Additional Instructions: At this time you have chosen to leave AGAINST MEDICAL ADVICE. We discussed admission to the hospital given your excessively high heart rate and shortness of breath. Given that you have chosen to go home we are starting you on a new controlled release medication to better control your heart rate until you can follow-up with your primary care provider. This medication is diltiazem and the pill given in the emergency department should be taken around 6:00 this evening. While on this medication please monitor for any increase of bleeding or bruising given that you are on blood thinners Given that you have chosen to not be admitted to the hospital please continue to take all your other normally prescribed medications and it is very important to follow-up with your primary care provider as soon as possible If you change your mind or have any new or significant worsening of symptoms return to the emergency department for reassessment Referrals: Ricky Monteiro [Primary Care Provider] - 2 days (Please follow-up with your primary care provider in the next 1 to 2 days) Discharge Data Discharge Date/Time-TO BE ENTERED AT DEPARTURE: 03/26/23 14:56 Medical Decision Making Patient presenting to the emergency department for chief complaint of shortness of breath and chest pain. Patient states that yesterday he was moving a very large safe and during exertion started having some chest pain and shortness of breath. Patient states he took all of his normal medications but this morning continue to have shortness of breath worse than normal so he came to the emergency department. Patient has past medical history of hypertension, A-fib, COPD, CHF. Patient does state that he did not take his fluid pill because he knew he was going to be here and was concerned about having to urinate excessively. Physical exam shows a irregular fast rhythm with rate in the 150s. Clear to diminished lung sounds otherwise patient is stable. We will plan on checking labs and EKG. Based upon monitor patient is in A-fib and flutter. Will order IV diltiazem. Please see physician interpretation of EKG but upon my review patient is in mix of A-fib a flutter, no obvious ischemic findings. Reviewed patient's labs and CBC is overall unremarkable nondiagnostic, CMP shows slightly low magnesium at 1.6 which we will orally replete. Troponin is negative/nondetected and BNP is slightly elevated at 628 all other labs are nondiagnostic. Patient reassessed after total of 20 mg IV Dilt was given and rate is now averaging mid 90s compared to 150s. I feel this is reassuring and patient was given 60 mg p.o. immediate release diltiazem . Chest x-ray was performed and shows no acute findings. Patient reassessed and states significant improvement of symptoms. Did discuss with patient admission given slightly elevated BNP and concern for return of rapid heart rate with diltiazem wearing off. Patient states that he is refusing admission at this time, patient ANO x4 and does have decision-making capacity. After full discussion of risk versus benefit patient still adamant that he will not be admitted. Will place patient on urgent referral to primary care to follow-up and will place patient on controlled release diltiazem 180 mg. Patient informed to watch for any bleeding due to noted potential reaction but I do feel that benefit outweighs risk. After discussion of diagnosis and plan of care patient has no further needs, questions, or concerns and states clear understanding to return to the emergency department for any worsening symptoms. This documentation was generated using [employer] system, please disregard any oddities of phrase or misspellings. Imaging Data Radiologic Study: Imaging: X-Ray Radiologist's impression: Exam(s) PROCEDURE INFORMATION: Exam: XR Chest Exam date and time: 03/26/2023 1:08 PM Age: 67 years old Clinical indication: Other: SOB.No history of trauma or recent surgery is provided. TECHNIQUE: Imaging protocol: Radiologic exam of the chest. 2image(s) are provided. Views: 2 views. COMPARISON: 1. CT CHEST LUNG CANCER SCREEN 11/19/2021 1:[address] CHEST LUNG CANCER SCREEN 08/04/2020 1:43 PM 3. CR XR CHEST 2V PA LATERAL 04/19/2019 4:14 PM FINDINGS: Lungs: There is some bandlike subsegmental atelectasis versus post inflammatory scarring demonstrated. This is left basilar and lingular predominance similar overall. No lobar consolidation is appreciated. There is some mild chronic air trapping appearance along with some bleb related change. Pleural spaces: No interval pneumothorax or pleural effusion is appreciated. Heart/Mediastinum: The cardiomediastinal silhouette is upper normal in size.This can be seen with central averaging as well as olga enlargement.No cardiac decompensation is appreciated. Diaphragm: The hemidiaphragms are symmetric. Bones/joints: Osseous alignment is maintained.No interval displaced fracture or dislocation is appreciated. There is some thoracic spondylosis similar overall. There are some chronic appearing rib deformity similar overall. Soft tissues: No radiopaque foreign body or subcutaneous emphysema is appreciated. There is some skin fold averaging. Other findings: No other significant interval changes are appreciated. IMPRESSION: There is some mild chronic air trapping appearance similar overall along with chronic scarring of the left lung base. No interval lobar consolidation or acute cardiopulmonary changes are appreciated. Lab Data Lab results reviewed: Yes I reviewed the patient's lab results. HPI General Mode of arrival: ambulatory . Date/Time Provider Initiated Documentation: 03/26/23 11:54 . Limitations to Documentation: no limitations . Information obtained by: patient and RN notes reviewed . History of Present Illness 67 year old M presents to the emergency department with the chief complaint of Chest pain, shortness of breath, described as moderate and similar to prior episodes, and is localized to the chest. Patient reports no radiation. Patient started experiencing this day(s) (1) and it has been constant. No relieving factors improve symptom(s), Other factors that worsen symptoms (Lifting heavy object) . Patient notes no other symptoms.. Patient did receive the following treatments prior to arrival, none Related Data Home Medications Medication Instructions Recorded Confirmed gemfibrozil 600 mg tablet 600 mg PO BID 08/26/13 12/11/18 losartan 100 mg tablet 100 mg PO DAILY 10/13/14 12/11/18 albuterol sulfate 90 mcg/actuation 2 puff inhalation Q4H PRN PRN 08/25/15 12/11/18 aerosol inhaler (ProAir HFA) omeprazole 20 mg capsule,delayed 20 mg PO DAILY 08/25/15 12/11/18 release magnesium oxide 400 mg (241.3 mg 400 mg PO BID ##20 12/24/15 12/11/18 magnesium) tablet fluticasone 500 mcg-salmeterol 50 1 puff inhalation DAILY 06/29/16 12/11/18 mcg/dose blistr powdr for inhalation (Advair Diskus) ipratropium 18 mcg-albuterol 103 2 puff inhalation DAILY 08/17/16 12/11/18 mcg/actuation aerosol inhaler (Combivent) tiotropium bromide 18 mcg capsule 1 puff inhalation DAILY 08/18/16 12/11/18 with inhalation device (Spiriva with HandiHaler) furosemide 40 mg tablet 80 mg PO DAILY AM #90 tab-caps 08/31/16 12/11/18 metoprolol tartrate 25 mg tablet 50 mg PO BID #180 tab-caps 08/31/16 12/11/18 lidocaine 5 % topical patch 1 patch topical Q24H #4 patches 12/11/18 (Lidoderm) potassium chloride 10 mEq 10 meq PO DAILY 12/11/18 12/11/18 tablet,extended release rivaroxaban 20 mg tablet (Xarelto) 20 mg PO DAILY 12/11/18 12/11/18 nitroglycerin 0.4 mg sublingual 0.4 mg sublingual Q5M PRN 03/02/23 tablet (Nitrostat) diltiazem HCl 180 mg capsule,24 180 mg PO DAILY #10 caps 03/26/23 hr,extended release Previous Rx's Medication Instructions Recorded magnesium oxide 400 mg (241.3 mg 400 mg PO BID ##20 12/24/15 magnesium) tablet tiotropium bromide 18 mcg capsule 1 puff inhalation DAILY 08/18/16 with inhalation device (Spiriva with HandiHaler) lidocaine 5 % topical patch 1 patch topical Q24H #4 patches 12/11/18 (Lidoderm) diltiazem HCl 180 mg capsule,24 180 mg PO DAILY #10 caps 03/26/23 hr,extended release Allergies Allergy/AdvReac Type Severity Reaction Status Date / Time Sulfa (Sulfonamide Allergy Intermediate Skin Rash Unverified 03/26/23 11:52 Antibiotics) ciprofloxacin Allergy Itching Unverified 03/26/23 11:52 lisinopril AdvReac Mild cough Unverified 03/26/23 11:52 mold AdvReac Uncoded 03/26/23 11:52 General Stated Complaint: SOB ERICKA: 3 Review of Systems Constitutional Constitutional: Denies chills, Denies fever(s), Denies headache(s) and Reports malaise ENT Ears, Nose, Mouth, and Throat: Denies headache(s) Cardiovascular Cardiovascular: Reports chest pain, Reports chest pain at rest, Reports chest pain with activity, Denies syncope, Reports rapid heart rate, Reports lighth eadedness, Reports dyspnea and Reports dyspnea on exertion Respiratory Respiratory: Reports cough (Chronic unchanged), Reports dyspnea and Reports dysp mira on exertion Gastrointestinal Gastrointestinal: Denies abdominal pain, Denies nausea and Denies vomiting Integumentary/Breasts Skin/Breast: Reports rash Neurologic Neurologic: Denies syncope and Denies headache(s) PFSH All Active Problems (Updated 03/26/23 @ 14:29 by Neftali Douglas, [place]) Atrial fibrillation with rapid ventricular response (Acute) GERD (gastroesophageal reflux disease) (Chronic) Hypertriglyceridemia (Chronic) HTN (hypertension) (Chronic) Hypomagnesemia (Chronic) Atrial fibrillation (Chronic) Cigarette smoker (Chronic) Leg edema (Chronic) Tooth abscess (Acute) COPD (chronic obstructive pulmonary disease) (Chronic) Chest pain (Acute) Dog bite of hand (Acute) Medical History Alcohol abuse, in remission Blepharitis Blepharitis of eyelid of left eye Former smoker History of hypokalemia Hx of adenomatous colonic polyps Obesity Sleep apnea Ulnar neuropathy Social History Smoking/Tobacco Use Status: Current every day Tobacco Type: cigarettes Smoking packs per day: 1 Smoking cigarettes per day: 20.0 Smoking risk assessment performed?: Yes Alcohol Intake: current Alcohol Intake frequency: 3 or more drinks per day Alcohol type: beer Drug use: Never Substance use type: does not use Housing: apartment Do you feel safe at home: Yes Do you feel safe in your relationship?: Yes Exam Const General: cooperative, comfortable and not diaphoretic Orientation: alert, awake and oriented x3 Limitations: mental status not altered Neck Neck: normal visual inspection, full ROM, trachea midline, supple and no anterior neck swelling Carotids: normal carotid upstroke Chest Chest: normal inspection of the chest Resp Effort & Inspection: normal respiratory effort and able to speak in complete sentences Auscultation: clear to auscultation bilaterally and diminished lung sounds bilaterally in the lower lung urias Cardio Palpation: normal PMI Rate: tachycardic Rhythm: abnormal rhythm irregularly irregular Heart Sounds: S1 normal, S2 normal, no click, no gallops, no murmurs and no rubs Bruits: no carotid bruits GI Inspection: obesity Neuro General: patient alert, patient awake, patient oriented x3, tone normal and moves all extremities Course Vital Signs Vital signs: Vital Signs Pulse 144 H 03/26/23 11:47 Respiratory Rate 30 H 03/26/23 11:47 Blood Pressure 115/76 03/26/23 11:47 Pulse Oximetry 93 03/26/23 11:47 Pulse 128 H 03/26/23 12:30 Respiratory Rate 30 H 03/26/23 11:47 Blood Pressure 102/60 03/26/23 12:30 Pulse Oximetry 93 03/26/23 11:47 Oxygen Delivery Method Room Air 03/26/23 11:47 Oxygen Flow Rate 0 03/26/23 11:47 Pain Level 5 03/26/23 11:47 Lab/Test Results Lab/Test Results: Laboratory Tests Range/Units 03/26/23 12:20 WBC (4.4-10.8) 10^3/uL 6.66 RBC (4.36-5.78) 10^6/uL 5.13 Hgb (13.5-17.5) g/dL 15.6 Hct (40.0-50.0) % 47.5 MCV (80-95) fL 93 MCH (27.0-33.0) pg 30.4 MCHC (32.0-36.0) % 32.8 RDW (11.8-14.1) % 13.5 Plt Count (130-400) 10^3/uL 204 MPV (8.0-11.0) fL 9.3 Immature Gran % 0.3 Neutrophils % 76.8 Lymphocytes % 14.4 Monocytes % 6.5 Eosinophils % 1.5 Basophils % 0.5 Nucleated RBC % (0.0-0.3) % 0.0 Absolute Neutrophils (1.2-6.7) 10^3/uL 5.12 Absolute Lymphocytes (1.2-3.4) 10^3/uL 0.96 L Absolute Monocytes (0.1-0.8) 10^3/uL 0.43 Absolute Eosinophils (0.0-0.7) 10^3/uL 0.10 Absolute Basophils (0.0-0.2) 10^3/uL 0.03
[2023-03-26 12:59] LABS: NT-proBNP 628 pg/mL (<300)
--- NOTE | 2023-03-26 13:00 | DI.RAD_ITS ---
Exam(s) XR CHEST 2V PA LATERAL EXAM: XR CHEST 2V PA LATERAL CLINICAL HISTORY: Shortness of breath TECHNIQUE: 2D digital imaging was performed of the chest. Two images were obtained. PA and lateral views were obtained. COMPARISON: CR,XR XR CHEST 2V PA LATERAL from 04/19/[address] CHEST LUNG CANCER SCREEN from 11/19/2021 FINDINGS: MEDIASTINUM: Normal. HEART: Normal. PULMONARY VASCULATURE: Normal. LUNGS: There is stable scarring or atelectasis in the left lung. No new infiltrates are seen. The l ungs show mild air trapping with hyperexpansion of the lungs and flattened diaphragms. PLEURAL SPACE: No pleural effusion or pneumothorax. BONE:Within normal limits for the patient's age. OTHER FINDINGS:Normal. IMPRESSION: No acute pulmonary findings. DATA REPOSITORY: RADIATION DOSE DELIVERED:
[2023-03-26 13:40] VITALS: RESP 18
--- NOTE | 2023-03-26 13:40 | DI.VRAD_ITS ---
PROCEDURE INFORMATION: Exam: XR Chest Exam date and time: 03/26/2023 1:08 PM Age: 67 years old Clinical indication: Other: SOB.No history of trauma or recent surgery is provided. TECHNIQUE: Imaging protocol: Radiologic exam of the chest. 2image(s) are provided. Views: 2 views. COMPARISON: 1. CT CHEST LUNG CANCER SCREEN 11/19/2021 1:[address] CHEST LUNG CANCER SCREEN 08/04/2020 1:43 PM 3. CR XR CHEST 2V PA LATERAL 04/19/2019 4:14 PM FINDINGS: Lungs: There is some bandlike subsegmental atelectasis versus post inflammatory scarring demonstrated. This is left basilar and lingular predominance similar overall. No lobar consolidation is appreciated. There is some mild chronic air trapping appearance along with some bleb related change. Pleural spaces: No interval pneumothorax or pleural effusion is appreciated. Heart/Mediastinum: The cardiomediastinal silhouette is upper normal in size.This can be seen with central averaging as well as olga enlargement.No cardiac decompensation is appreciated. Diaphragm: The hemidiaphragms are symmetric. Bones/joints: Osseous alignment is maintained.No interval displaced fracture or dislocation is appreciated. There is some thoracic spondylosis similar overall. There are some chronic appearing rib deformity similar overall. Soft tissues: No radiopaque foreign body or subcutaneous emphysema is appreciated. There is some skin fold averaging. Other findings: No other significant interval changes are appreciated. IMPRESSION: There is some mild chronic air trapping appearance similar overall along with chronic scarring of the left lung base. No interval lobar consolidation or acute cardiopulmonary changes are appreciated. Dictated and Authenticated by: George Gonzalez MD. Ordering:SARAH Lindsay MD
[2023-03-26] MEDS: Magnesium Oxide 400 MG TAB PO (13:47)
--- NOTE | 2023-03-26 18:00 | NUR.NOTE ---
Referral made per Jarrod Douglas to PCP follow up in 24-48 hrs for Afib with RVR and patient left AMA. Put the referral in care manger's nusrat for follow up assistance.Nursing Note:
== END 2023-03-26 14:56 | disposition left against medical advice (07) ==
PROVIDERS: Emergency Provider Nurse Practitioner Family; PCP Family Medicine
DX: R06.02 Shortness of breath (principal); R07.9 Chest pain, unspecified; I48.91 Unspecified atrial fibrillation; Z53.29 Procedure and treatment not carried out because of patient's decision for other reasons; Z79.899 Other long term (current) drug therapy; Z79.01 Long term (current) use of anticoagulants; I50.9 Heart failure, unspecified; J44.9 Chronic obstructive pulmonary disease, unspecified
CPT/HCPCS: 36415; 80053; 93005; 96374; 99285; 71046; 83735; 83880; 84484; 85025; 93010; 99283

== ENCOUNTER 2023-04-06 08:52 | Outpatient (CLI) | payer MEDICARE, SELFPAY ==
--- NOTE | 2023-04-06 08:45 | RT.EKG_ITS ---
APPROVED REPORT Exam: Resting ECG Reason for Exam: cardiac evaluation Patient Location: O HR:82 bpm ECG Measurements Heart Rate 82 AXIS VT [id number] P [id number] QRSd 124 QRS 91 QT 326 T 14 QTc 381 Conclusion Atrial flutter Nonspecific intraventricular conduction delay...QRSd >115mS, not LBBB/RBBB Anteroseptal infarct, old...Q >40mS, V1-V2
== END 2023-04-06 08:53 | disposition home or self-care (01) ==
LOC: DI.CARD 08:52
PROVIDERS: PCP Family Medicine; Visit Provider Internal Medicine Cardiovascular Disease
DX: E78.1 Pure hyperglyceridemia (principal); I10 Essential (primary) hypertension
CPT/HCPCS: 93010

== ENCOUNTER 2023-04-06 13:08 | Outpatient (RCR) | payer MEDICARE, SELFPAY ==
--- NOTE | 2023-04-06 13:15 | HOLTER_ITS ---
APPROVED REPORT Conclusion This is a 48-hour Holter monitor Patient was in atrial flutter throughout with an average heart rate of 88. Minimum was 78, maximum 1 44 There were rare ventricular ectopic beats There were no pauses, no high-grade AV block
== END 2023-04-29 23:59 | disposition home or self-care (01) ==
LOC: CARDOPNVT 13:08
PROVIDERS: PCP Family Medicine; Visit Provider Family Medicine
DX: R55 Syncope and collapse (principal)
CPT/HCPCS: 93227; 93225; 93226

== ENCOUNTER → 2023-04-06 13:31 | Outpatient (BNVA) | payer MEDICARE, SELFPAY | PROVIDERS: PCP Family Medicine; Referring Provider Family Medicine; Visit Provider Internal Medicine Cardiovascular Disease | DX: I48.92 Unspecified atrial flutter (principal); Z79.01 Long term (current) use of anticoagulants; J44.9 Chronic obstructive pulmonary disease, unspecified; G47.30 Sleep apnea, unspecified | CPT/HCPCS: 93005; 93227; 99203; 99214; 93225 ==

== ENCOUNTER 2023-04-18 06:05 | Day surgery (SDC) | payer MEDICARE, SELFPAY ==
--- NOTE | 2023-04-18 06:30 | RT.EKG_ITS ---
APPROVED REPORT Exam: Resting ECG Reason for Exam: pre-op EKG Patient Location: O HR:83 bpm ECG Measurements Heart Rate 83 AXIS IN [id number] P [id number] QRSd 104 QRS 82 QT 363 T 11 QTc 441 Conclusion Atrial flutter...A-rate 306
--- NOTE | 2023-04-18 06:38 | ANES.PREOP_ITS ---
General Info Date of Service Date Performed: 04/18/23 Height: 5 ft 7 in Weight: 112.037 kg Body Mass Index (BMI): 38.7 Surgical Procedure: Operation Date: 04/18/23 07:30 Proposed Procedure Side Surgeon p Cardioversion Dori Swift MD Meds Allergies and Home Medications Allergies Allergy/AdvReac Type Severity Reaction Status Date / Time Sulfa (Sulfonamide Allergy Intermediate Skin Rash Unverified 04/18/23 06:25 Antibiotics) ciprofloxacin Allergy Itching Unverified 04/18/23 06:25 lisinopril AdvReac Mild cough Unverified 04/18/23 06:25 mold AdvReac Uncoded 04/18/23 06:25 Home Medication Medication Instructions Recorded albuterol sulfate 90 mcg/actuation 2 puff inhalation Q4H PRN PRN 08/25/15 aerosol inhaler (ProAir HFA) omeprazole 20 mg capsule,delayed 20 mg PO DAILY 08/25/15 release tiotropium bromide 18 mcg capsule 1 puff inhalation DAILY 08/18/16 with inhalation device (Spiriva with HandiHaler) rivaroxaban 20 mg tablet (Xarelto) 20 mg PO DAILY 12/11/18 nitroglycerin 0.4 mg sublingual 0.4 mg sublingual Q5M PRN 03/02/23 tablet (Nitrostat) atorvastatin 20 mg tablet 20 mg PO QHS 03/28/23 cetirizine 10 mg tablet 10 mg PO DAILY PRN 03/28/23 fluticasone propionate 50 2 spray intranasal DAILY 03/28/23 mcg/actuation nasal spray,suspension furosemide 40 mg tablet 40 mg PO DAILY 03/28/23 ipratropium 0.5 mg-albuterol 3 mg 3 ml inhalation Q6H PRN 03/28/23 (2.5 mg base)/3 mL nebulization soln magnesium oxide 400 mg PO TID 03/28/23 metoprolol succinate 50 mg 50 mg PO DAILY 03/28/23 tablet,extended release 24 hr mometasone-formoterol HFA 100 2 puff inhalation BID 03/28/23 mcg-5 mcg/actuation aerosol inhaler (Dulera) spironolactone 25 mg tablet 25 mg PO DAILY 03/28/23 diltiazem HCl 120 mg capsule,24 120 mg PO DAILY 04/06/23 hr,extended release Current Visit Medications: Current Medications Generic Name Dose Route Start Last Admin Trade Name Corin PRN Reason Stop Dose Admin Sodium Chloride 1,000 mls @ 30 mls/hr 04/18/23 06:00 Saline 1000ml Bag IV 05/18/23 05:59 INFUSION MIGUEL IV Miscellaneous Supplies 1 each 04/18/23 06:00 Iv Access IV 05/17/23 23:59 DIRECTED MIGUEL Sodium Chloride 0 ml 04/18/23 06:00 Normal Saline Flush 10 Ml Syr IV 05/17/23 23:59 PRN PRN Sodium Chloride 0 ml 04/18/23 06:00 Normal Saline 10 Ml Vial IJ 05/17/23 23:59 DIRECTED PRN Sterile Water 0 ml 04/18/23 06:00 Water,Injection,Sterile 10 Ml Vial IJ 05/17/23 23:59 DIRECTED PRN PFSH Active Problems Active Problems: Problem Status Onset Code Atrial flutter I48.92 Degenerative disc disease, lumbar M51.36 Prediabetes R73.03 Atrial fibrillation with rapid ventricular response I48.91 GERD (gastroesophageal reflux disease) K21.9 Hypertriglyceridemia E78.1 HTN (hypertension) I10 Hypomagnesemia E83.42 Atrial fibrillation I48.91 Cigarette smoker F17.210 Leg edema R60.0 Tooth abscess K04.7 COPD (chronic obstructive pulmonary disease) J44.9 Chest pain R07.9 Dog bite of hand S61.459A, W54.0XXA Medical History Medical History (Updated 04/18/23 @ 06:44 by Ericka Cheek) Alcohol abuse, in remission pt. states he still smokes Blepharitis Blepharitis of eyelid of left eye Former smoker pt. states he smokes still History of hypokalemia Hx of adenomatous colonic polyps Obesity Sleep apnea Ulnar neuropathy Surgical History Surgical History (Updated 04/18/23 @ 06:42 by Ericka Cheek) Hx of cardiac catheterization pt. unsure but states they went up through his leg vein to look at his heart Hx of colonoscopy Hx of inguinal hernia repair Tobacco Smoking/Tobacco Use Status: Current every day Tobacco Type: cigarettes Smoking packs per day: 1 Smoking cigarettes per day: 20.0 Alcohol Alcohol Intake: current Alcohol intake frequency: 3 or more drinks per day Alcohol type: beer Substance Use Substance use: Never Substance use type: does not use Vital Signs and Lab Results Vital Signs Most Recent Vital Signs in EMR: Temp Pulse Resp BP Pulse Ox 36.5 C 69 24 136/75 94 04/18/23 06:47 04/18/23 06:47 04/18/23 06:47 04/18/23 06:47 04/18/23 06:47 Lab Results Blood Type / Crossmatch: No Data to Display Complete Blood Count: White Blood Count 6.66 10^3/uL (4.4-10.8) 03/26/23 12:20 Red Blood Count 5.13 10^6/uL (4.36-5.78) 03/26/23 12:20 Hemoglobin 15.6 g/dL (13.5-17.5) 03/26/23 12:20 Hematocrit 47.5 % (40.0-50.0) 03/26/23 12:20 Platelet Count 204 10^3/uL (130-400) 03/26/23 12:20 Complete Metabolic Panel: Sodium 138 mmol/L (136-145) 03/26/23 12:20 Potassium 4.2 mmol/L (3.5-5.1) 03/26/23 12:20 Chloride 102 mmol/L (98-107) 03/26/23 12:20 Carbon Dioxide 28.0 mmol/L (21.0-32.0) 03/26/23 12:20 BUN 17 mg/dL (7-18) 03/26/23 12:20 Creatinine 1.0 mg/dL (0.70-1.30) 03/26/23 12:20 Est GFR (CKD-EPI 2020) 83.01 (mL/min/1.73m2) 03/26/23 12:20 Magnesium 1.6 mg/dL (1.8-2.4) L 03/26/23 12:20 Calcium 9.1 mg/dL (8.5-10.1) 03/26/23 12:20 Albumin 3.1 g/dL (3.4-5.0) L 03/26/23 12:20 Glucose 137 mg/dL (74-106) H 03/26/23 12:20 Liver Function Panel: Alanine Aminotransferase (ALT/SGPT) 20 U/L (16-63) 03/26/23 12: 20 Aspartate Amino Transf (AST/SGOT) 19 U/L (15-37) 03/26/23 12:20 Coagulation Panel: No Data to Display Cardiac Panel: Troponin I < 50 ng/L (<or=60) 03/26/23 NT-Pro-B Natriuret Pep 628 pg/mL (<300) H 03/26/23 Arterial Blood Gas: No Data to Display Venous Blood Gas: No Data to Display Pancreas Panel: No Data to Display Thyroid Panel: No Data to Display Infectious Disease: No Data to Display Blood Cultures: No Data to Display Toxicology Panel: No Data to Display Imaging and Studies Imaging and Studies Study information below may be from another EMR and interpreted by another provider. Please see original notes in EMR for more complete details. EKG Summary: 04/22: atrial flutter. Stress Test Summary: 08/31/15: EF 64%, moderate sized, moderately intense predominantly reversible defect of inferior wall - moderate ischemia in the RCA. Echocardiogram Summary: 02/17: LVEF 60%, RVSP 17 mmhg, mild MR. Cardiac Catheterization Summary: 09/11/2015: nonobbstructive CAD, elevated wedge at 20 Pulmonary Function Summary: 03/16: no reactive lung dz. suspicious for restriction. Anesthesia Assessment and Plan Anesthesia History Personal History: No History of Anesthesia Complications Family History: No Family History of Anesthesia Complications Exercise Tolerance Exercise Tolerance: Metabolic Equivalents>4 Cardiac & Pulmonary Exam Cardiac Exam: Normal S1/S2 Heart Sounds Pulmonary Exam: Clear Bilateral Breath Sounds Implantable Cardiac Device Does patient have a Pacemaker or an ICD?: No Airway Exam Known Difficult Airway: No Mallampati Class: 4 Mouth Opening: Normal (> 3cm) Thyromental Distance: Greater than 3 cm Neck Range of Motion: Full ROM Neck Circumference: Thick Teeth Condition: Generalized Poor Dentition, Loose or Chipped and Other (multiple missing, a few loose. ) ASA Classification ASA Score: ASA 2 Emergency Case?: No NPO Status NPO Status: NPO Clears >2 hours, Solids >8 hours Anesthesia Plan Resuscitation Status: Full Code Anesthesia Technique: General Anesthesia Airway Planned: Natural Airway Monitors Used: Standard Monitors Preoperative Comments:: 67 yo male for cardioversion. states he can go up a flight or 2 of stairs, but slowly. He is winded today just talking, but states that his breathing feels okay and that he is here. Sig PMHx: afib/flutter (rivaroxaban, diltiazem, metoprolol), HTN (spironolactone, furosemide), COPD (sipriva, dulera), KIET with CPAP, preDM, GERD (poorly controlled), occ EtOh, daily smoker.
[2023-04-18 06:47] VITALS: BP 136/75; PULSE 69; RESP 24; TEMP 36.5; O2SAT 94
[2023-04-18 06:50] VITALS: BMI 38.7
[2023-04-18] MEDS: Normal Saline 1,000 ML 30 ML IV (07:00)
[2023-04-18 07:41] VITALS: BP 108/75; PULSE 74; RESP 24; TEMP 36.7; O2SAT 91
--- NOTE | 2023-04-18 07:43 | W.CARDVER ---
Date of service: 04/18/23 Time of Service: 07:43 Cardioversion DATE OF PROCEDURE: 04/18/23 PRE-OP DIAGNOSES: Atrial flutter POST-OP DIAGNOSES: same Anesthesia Type: MAC Indications: This is a 67-year-old man with atrial flutter Procedure Description: Patient was brought to the procedure room. He was connected to anterior and posterior pads and was sedated under the direction of the anesthesiologist. When adequate sedation was obtained he had 1 synchronized shock at 150 W seconds with conversion to sinus rhythm. Some atrial premature beats were noted. He was brought to the recovery area and plan is for discharge when fully awake
--- NOTE | 2023-04-18 07:45 | RT.EKG_ITS ---
APPROVED REPORT Exam: Resting ECG Reason for Exam: Post-op EKG Patient Location: O HR:80 bpm ECG Measurements Heart Rate 80 AXIS AZ 195 P -10 QRSd 102 QRS 82 QT 368 T 47 QTc 411 Conclusion Sinus rhythm...normal P axis, V-rate 60- 99 Atrial premature complexes...SV complexes w/ short R-R intvls
--- NOTE | 2023-04-18 07:45 | W.PM.DSUDISC ---
Date of service: 04/18/23 Time of Service: 07:50 Discharge Plan Disposition Patient Disposition: Home Condition: Stable Discharge Details Attending Provider: Dori Swift Primary Care Provider: Ricky Monteiro Home Meds and New Rx's Prescriptions: No Action diltiazem HCl 120 mg capsule,extended release 24 hr 120 mg PO DAILY nitroglycerin [Nitrostat] 0.4 mg tablet, sublingual 0.4 mg sublingual Q5M PRN Patient Comments: pt. states he doesnt have anymore Rx Instructions: do not exceed 3 doses per episode cetirizine 10 mg tablet 10 mg PO DAILY PRN magnesium oxide 400 mg magnesium tablet 400 mg PO TID Dulera 100-5 mcg/actuation HFA aerosol inhaler 2 puff inhalation BID spironolactone 25 mg tablet 25 mg PO DAILY atorvastatin 20 mg tablet 20 mg PO QHS furosemide 40 mg tablet 40 mg PO DAILY metoprolol succinate 50 mg tablet extended release 24 hr 50 mg PO DAILY fluticasone propionate 50 mcg/actuation spray,suspension 2 spray intranasal DAILY Rx Instructions: administer into each nostril ipratropium-albuterol 0.5 mg-3 mg(2.5 mg base)/3 mL solution for nebulization 3 ml inhalation Q6H PRN omeprazole 20 MG capsule,delayed release(DR/EC) 20 mg PO DAILY albuterol sulfate [ProAir HFA] 200 PUFF HFA aerosol inhaler 2 puff Inhalation Q4H PRN PRN Xarelto 20 mg Tablet 20 mg PO DAILY tiotropium bromide [Spiriva with HandiHaler] 1 PUFF capsule, w/inhalation device 1 puff Inhalation DAILY 0RF Discharge Instructions Activity:: Activity as Tolerated Discharge Orders Discharge Orders: Discharge Order (Routine); Ordered 04/18/23 Ordered By: Dori Swift
[2023-04-18 07:53] VITALS: PULSE 78; RESP 2; RESP 20; RESP 8; O2SAT 90
[2023-04-18] MEDS: Albuterol/Ipratropium 3 ML UPD VIAL UPD (07:53)
[2023-04-18 07:57] VITALS: RESP 8
--- NOTE | 2023-04-18 08:18 | W.ANESPOSTOP ---
Postoperative Evaluation Date, Time and Location Date Performed: 04/18/23 Time Performed: 08:18 Patient Location: Day Surgery Unit Vital Signs Most Recent Imported Vital Signs: Most Recent Vital Signs Temp Pulse Resp BP Pulse Ox 36.5 C 78 20 136/75 90 L 04/18/23 06:47 04/18/23 07:53 04/18/23 07:53 04/18/23 06:47 04/18/23 07:53 Pain Score Most Recent Pain Score: Most Recent Pain Score Pain Level 0 04/18/23 06:47 Assessment Mental Status: Awake (Alert & Oriented to Patient Baseline) Airway and Respiratory Function: Patent airway with normal (patient baseline) respiratory exam Cardiovascular Function: Hemodynamically Stable Hydration Status: Adequately Hydrated Nausea & Vomiting: No Nausea or Vomiting Pain: Pt. Denies Any Pain Peripheral Nerve Block: Patient did not receive a nerve block
--- NOTE | 2023-04-18 08:19 | NUR.NOTE ---
0725: in to see pt. prior to procedure. Pt. asked MD if he still need nitroglycerin since he didnt have any. MD mentioned that he was here for an abnormal heart rthym and that she wasnt sure why he had nitro, and states she felt he did not need it. Pt. also reports that the Diltiazem caused a cough and light headedness and dizziness, MD stated hopefully you wont be on it after today. Nursing Note:
[2023-04-18 08:24] VITALS: BP 124/59; PULSE 87; RESP 24; TEMP 37; O2SAT 94
== END 2023-04-18 08:47 | disposition home or self-care (01) ==
PROVIDERS: PCP Family Medicine; Visit Provider Internal Medicine Cardiovascular Disease
PROC: 5A2204Z Restoration of Cardiac Rhythm, Single (ICD-10-PCS; CPT 92960; principal; 2023-04-18 07:30)
DX: I48.92 Unspecified atrial flutter (principal); R73.03 Prediabetes; J44.9 Chronic obstructive pulmonary disease, unspecified; E78.1 Pure hyperglyceridemia
CPT/HCPCS: 92960; 93005; 93010; J2704; J7620

== ENCOUNTER 2023-05-01 08:18 | Outpatient (CLI) | payer MEDICARE, SELFPAY ==
--- NOTE | 2023-05-01 08:15 | RT.EKG_ITS ---
APPROVED REPORT Exam: Resting ECG Reason for Exam: atrial flutter Patient Location: O HR:79 bpm ECG Measurements Heart Rate 79 AXIS TN 178 P -12 QRSd 100 QRS 88 QT 358 T 48 QTc 411 Conclusion Sinus rhythm...normal P axis, V-rate 50- 99 Borderline right axis deviation...QRS axis ( 81, 90) Atrial premature beats
== END 2023-05-01 08:19 | disposition home or self-care (01) ==
LOC: DI.CARD 08:19
PROVIDERS: PCP Family Medicine; Visit Provider Internal Medicine Cardiovascular Disease
DX: I48.92 Unspecified atrial flutter (principal)
CPT/HCPCS: 93010

== ENCOUNTER → 2023-05-01 13:08 | Outpatient (BNVA) | payer MEDICARE, SELFPAY | PROVIDERS: PCP Family Medicine; Referring Provider Family Medicine; Visit Provider Internal Medicine Cardiovascular Disease | DX: J44.9 Chronic obstructive pulmonary disease, unspecified (principal); Z79.01 Long term (current) use of anticoagulants; G47.30 Sleep apnea, unspecified; I48.92 Unspecified atrial flutter | CPT/HCPCS: 93005; 99214 ==

== ENCOUNTER → 2023-05-04 01:52 | Outpatient (CLI) | payer MEDICARE, SELFPAY ==
--- NOTE | 2023-05-04 | DI.CTLCSR_ITS ---
Exam(s) CT CHEST LUNG CANCER SCREEN EXAM: CT CHEST LUNG CANCER SCREEN CLINICAL HISTORY: HX TOBACCO USE Z87.891 SCREENING LUNG CANCER. TECHNIQUE: Imaging Protocol: Low Dose Technique CONTRAST MATERIAL: None COMPARISON: CT CT CHEST LUNG CANCER SCREEN from 11/19/2021 FINDINGS: CHEST: LUNGS: Previously described small nodule located laterally in the right upper lobe is unchanged. A 2 nd nodule in the peripheral aspect of the right upper lobe is also unchanged. There are no new right lung nodules evident. In the opposite-left lung there is a pleural based 5 millimeter nodular densi ty now evident in the lateral basal segment the left lower lobe. Some infiltrate in the lingular seg ment is unchanged. No pleural effusions.. MEDIASTINUM: There is no obvious hilar nor mediastinal adenopathy. CARDIAC: Heart size is normal. There is no pericardial effusion.Coronary artery calcification in the LAD noted. Also in circumflex artery. Diameter of the ascending thoracic aorta is slightly promine nt, measuring 3.8 cm. OTHER: No adrenal masses. OSSEOUS: No significant osseous lesions.Healed fracture of the posterolateral aspect of the right 9th rib is again noted.. IMPRESSION: 1. Two small stable unchanged nodules in the right upper lobe. No new right lung nodules. 2. Small pleural base nodular density in the left lower lobe evident. Recommend six-month follow-up CT scan 3. Lung RADS Cat 3 - Probably Benign: Probably benign finding(s) - short term follow-up suggested; in clude nodules with a low likelihood of becoming a clinically active cancer. Lung-RADS 1.0 CATEGORIES: Category 0 - Prior chest CT exam(s) being located for comparison. Category 1 - Annual screening in 12 months. No nodules or definitely benign nodules. Category 2 - Annual screening in 12 months. Benign appearance. Nodules with low likelihood of becomin g active cancer. Category 3 - 6-month follow-up. Probably benign. Short-term follow-up suggested. Nodules with low lik elihood of becoming active cancer. Category 4A - 3-month follow-up and CT/PET if >8 mm in size. Suspicious finding. Findings which requi re additional testing. Category 4B - Findings which require additional testing and tissue sampling. Category 4X - Category 3 or 4 nodules with additional features or imaging findings that increases the suspicion of malignancy. Modifier S- Potentially clinically significant findings (non lung cancer) RADIATION DOSE DELIVERED: 99.94mGy.cm Total DLP DATA REPOSITORY: All CT scans at this facility are submitted to the National Radiology Data Registry (NRDR) Dose Index Registry (DIR) with the [employer] (ACR). RADIATION OPTIMIZATION: All CT scans at this facility use at least one of these dose optimization te chniques: automated exposure control; mA and/or kV adjustment per patient size (includes targeted exa ms where dose is matched to clinical indication); or iterative reconstruction.
== END ==
PROVIDERS: PCP Family Medicine; Visit Provider Physician Assistant
DX: Z87.891 Personal history of nicotine dependence (principal); Z12.2 Encounter for screening for malignant neoplasm of respiratory organs; R91.8 Other nonspecific abnormal finding of lung field
CPT/HCPCS: 71271

== ENCOUNTER → 2023-11-09 13:40 | Outpatient (BNVA) | payer MEDICARE, SELFPAY | PROVIDERS: PCP Family Medicine; Referring Provider Family Medicine; Visit Provider Internal Medicine Cardiovascular Disease | DX: I48.92 Unspecified atrial flutter (principal); J44.9 Chronic obstructive pulmonary disease, unspecified | CPT/HCPCS: 99213 ==

== ENCOUNTER → 2023-11-24 00:18 | Outpatient (CLI) | payer MEDICARE, SELFPAY ==
--- NOTE | 2023-11-24 | DI.CT_ITS ---
Exam(s) CT CHEST WO EXAM: CT CHEST WO CLINICAL HISTORY: F/U LUNG NODULE,R91.8. TECHNIQUE: Imaging protocol: Axial computed tomography images were obtained and coronal and sagittal reformatted images were created and reviewed. COMPARISON: CT CT CHEST LUNG CANCER SCREEN from 08/04/[address] CHEST LUNG CANCER SCREEN from 11/19/[address] CHEST LUNG CANCER SCREEN from 05/04/2023 FINDINGS: Tracheobronchial tree: Patent where visualized. Pulmonary parenchyma: Moderate centrilobular and paraseptal emphysema. There is a stable area of nod ular scarring in the lateral aspect of the left lung base. There is a stable 3 mm noncalcified pulmo nary nodule in the lateral aspect of the right upper lobe (series 7, image 143). There are no new pu lmonary nodules. No focal consolidating infiltrates are present. Mediastinum and Celia: No dominant adenopathy or fluid collection. The esophagus is unremarkable. Thyroid gland: Unremarkable. Pleura: No effusion or pneumothorax. Heart: The heart is not dilated. Coronary artery calcifications are present. No pericardial effusion . Aorta: Thoracic aorta non-dilated. Atherosclerotic calcification is present. Upper abdomen: Unremarkable. Lymph nodes: Within normal limits. Soft tissues: Bilateral gynecomastia. Bones:Within normal limits for the patient's age. Old healed right rib fracture. IMPRESSION: Stable pulmonary nodule. No new pulmonary nodules. RADIATION DOSE DELIVERED: 93.79mGy.cm Total DLP 93.79mGy.cm Total DLP DATA REPOSITORY: All CT scans at this facility are submitted to the National Radiology Data Registry (NRDR) Dose Index Registry (DIR) with the [employer] (ACR). RADIATION OPTIMIZATION: All CT scans at this facility use at least one of these dose optimization te chniques: automated exposure control; mA and/or kV adjustment per patient size (includes targeted exa ms where dose is matched to clinical indication); or iterative reconstruction.
== END ==
PROVIDERS: PCP Family Medicine; Visit Provider Family Medicine
DX: R91.8 Other nonspecific abnormal finding of lung field (principal)
CPT/HCPCS: 71250

== ENCOUNTER 2024-09-26 14:51 | Outpatient (REF) | payer MEDICARE, SELFPAY ==
[2024-09-26 15:20] LABS: HCT 46.5 % (40.0-50.0); HGB 15.5 g/dL (13.5-17.5); MCHC 33.3 % (32.0-36.0); MCV 96 fL (80-95); MPV 10.8 fL (8.0-11.0); Platelet Count 213 10^3/uL (130-400); RBC 4.85 10^6/uL (4.36-5.78); RDW 12.9 % (11.8-14.1); RDW-SD 46.1 fL; WBC 6.67 10^3/uL (4.4-10.8)
[2024-09-26 15:36] LABS: Hemoglobin A1C 5.9 % (<5.7)
[2024-09-26 15:42] LABS: Albumin 3.1 g/dL (3.4-5.0); Alkaline Phosphatase 108 U/L (46-116); BUN 15 mg/dL (7-18); Bilirubin, Total 0.42 mg/dL (0.2-1.0); CREATININE 1.1 mg/dL (0.70-1.30); Calcium 8.9 mg/dL (8.5-10.1); Chloride 105 mmol/L (98-107); Estimated GFR 73.12 (mL/min/1.73m2); Glucose 117 mg/dL (74-106); NT-proBNP 301 pg/mL (<300); Potassium 4.6 mmol/L (3.5-5.1); Sodium 142 mmol/L (136-145); TSH (W/Ref FT4) 2.42 uIU/mL (0.36-3.74); Total Protein 6.9 g/dL (6.4-8.2)
[2024-09-26 16:17] LABS: ALT 33 U/L (16-63); AST 18 U/L (15-37)
== END 2024-09-26 14:52 | disposition home or self-care (01) ==
LOC: NCHCN 14:51
PROVIDERS: PCP Family Medicine; Visit Provider Student in an Organized Health Care Education/Training Program
DX: E11.9 Type 2 diabetes mellitus without complications (principal); R00.8 Other abnormalities of heart beat
CPT/HCPCS: 80053; 85027; 83036; 83880; 84443

== ENCOUNTER 2024-10-03 14:18 | Outpatient (RCR) | payer MEDICARE, SELFPAY ==
--- NOTE | 2024-10-03 14:45 | RT.EKG_ITS ---
APPROVED REPORT Exam: Resting ECG Reason for Exam: SOB/ Irregular heart rhythm Patient Location: O HR:83 bpm ECG Measurements Heart Rate 83 AXIS MT 197 P -82 QRSd 102 QRS 87 QT 379 T 70 QTc 446 Conclusion Sinus or ectopic atrial rhythm...P axis (-45,135) Supraventricular bigeminy...bigeminy string>4 w/ SV complexes Borderline right axis deviation...QRS axis ( 81, 90)
--- NOTE | 2024-10-08 12:07 | W.HOLTRPT ---
Date of service: 10/08/24 Time of Service: 12:07 Holter Monitor Report Referring Provider:: eSng Muniz Indications:: Palpitations Holter Monitor Note: This is a Holter monitor. Patient was monitored for 1 day. Rhythm throughout was sinus with an average heart rate of 69. Minimum was 32, maximum 127. There were rare premature ventricular contractions. There were frequent atrial premature beats and runs of multiple PACs. There was no atrial fibrillation, no high-grade AV block, no pauses greater than 3 seconds. No patient symptoms were reported
== END 2024-10-28 23:59 | disposition home or self-care (01) ==
LOC: CARDOPNVT 14:18
PROVIDERS: PCP Family Medicine; Visit Provider Internal Medicine Cardiovascular Disease
DX: R00.2 Palpitations (principal); I49.1 Atrial premature depolarization
CPT/HCPCS: 93227; 93005; 93010; 93225; 93226

== ENCOUNTER 2024-11-07 13:21 | Outpatient (CLI) | payer MEDICARE, SELFPAY ==
--- NOTE | 2024-11-07 13:15 | RT.EKG_ITS ---
APPROVED REPORT Exam: Resting ECG Reason for Exam: annual Patient Location: O HR:79 bpm ECG Measurements Heart Rate 79 AXIS LA 145 P -87 QRSd 104 QRS 97 QT 364 T 51 QTc 418 Conclusion Sinus or ectopic atrial rhythm...P axis (-45,135) Left posterior fascicular block...trm axis(110,210), init force sup Abnormal R-wave progression, late transition...QRS area<0 in V5/V6 Minimal ST elevation, lateral leads...ST >0.06mV, I aVL V5 V6
== END 2024-11-07 13:22 | disposition home or self-care (01) ==
LOC: DI.CARD 13:25
PROVIDERS: PCP Family Medicine; Visit Provider Internal Medicine Cardiovascular Disease
DX: I10 Essential (primary) hypertension (principal); I48.92 Unspecified atrial flutter; J44.9 Chronic obstructive pulmonary disease, unspecified
CPT/HCPCS: 93010

== ENCOUNTER → 2024-11-07 13:21 | Outpatient (BNVA) | payer MEDICARE, SELFPAY | PROVIDERS: PCP Family Medicine; Referring Provider Family Medicine; Visit Provider Internal Medicine Cardiovascular Disease | DX: I48.92 Unspecified atrial flutter (principal); J44.9 Chronic obstructive pulmonary disease, unspecified | CPT/HCPCS: 99214 ==

== ENCOUNTER 2024-11-25 00:19 | Outpatient (CLI) | payer MEDICARE, SELFPAY ==
--- NOTE | 2024-11-25 | DI.CTLCSR_ITS ---
Exam(s) CT CHEST LUNG CANCER SCREEN EXAM: CT CHEST LUNG CANCER SCREEN CLINICAL HISTORY: CURRENT SMOKER 90 PACK YR HX, TOBACCO DEPENDENCE CIGARETTES, F17.210 TECHNIQUE: Imaging Protocol: Axial computed tomography images with coronal and sagittal reformatted images were created and reviewed. Low dose screening protocol. COMPARISON: CT CT CHEST WO from 11/24/2023 FINDINGS: Tracheobronchial tree: No bronchiectasis or mucus plugging. Mediastinum and Celia: No dominant adenopathy or fluid collection. Pulmonary parenchyma: No consolidation or dominant measurable mass. Moderate centrilobular and parase ptal emphysematous changes mostly in the upper lobes.. Mildly increased interstitial changes in the upper lobes.. Lung Nodules: Stable 3 millimeter nodule lateral right upper lobe. Pleura: No effusion. No pneumothorax. Heart: The heart is not dilated. Moderate coronary artery calcifications are seen. No pericardial eff usion. Aorta: Thoracic aorta non-dilated. Upper abdomen: Unremarkable. Bones: Old right rib fracture. Soft Tissues: Unremarkable bilateral gynecomastia IMPRESSION: Stable 3 millimeter nodule in the right upper lobe. Lung RADS Cat 2 - Benign Appearance / Behavior: Nodules with a very low likelihood of becoming a clin ically active cancer due to size or lack of growth Lung-RADS 1.0 CATEGORIES: Category 0 - Prior chest CT exam(s) being located for comparison. Category 1 - Annual screening in 12 months. No nodules or definitely benign nodules. Category 2 - Annual screening in 12 months. Benign appearance. Nodules with low likelihood of becomin g active cancer. Category 3 - 6-month follow-up. Probably benign. Short-term follow-up suggested. Nodules with low lik elihood of becoming active cancer. Category 4A - 3-month follow-up and CT/PET if >8 mm in size. Suspicious finding. Findings which requi re additional testing. Category 4B - Findings which require additional testing and tissue sampling. Category 4X - Category 3 or 4 nodules with additional features or imaging findings that increases the suspicion of malignancy. Modifier S- Potentially clinically significant findings (non lung cancer) RADIATION DOSE DELIVERED: !Error Total DLP DATA REPOSITORY: All CT scans at this facility are submitted to the National Radiology Data Registry (NRDR) Dose Index Registry (DIR) with the [employer] (ACR). RADIATION OPTIMIZATION: All CT scans at this facility use at least one of these dose optimization te chniques: automated exposure control; mA and/or kV adjustment per patient size (includes targeted exa ms where dose is matched to clinical indication); or iterative reconstruction.
== END 2024-11-25 00:39 ==
LOC: DI 00:19
PROVIDERS: PCP Family Medicine; Visit Provider Student in an Organized Health Care Education/Training Program
DX: F17.210 Nicotine dependence, cigarettes, uncomplicated (principal); Z12.2 Encounter for screening for malignant neoplasm of respiratory organs; R91.1 Solitary pulmonary nodule
CPT/HCPCS: 71271

== ENCOUNTER 2025-01-08 01:43 | Outpatient (CLI) | payer MEDICARE, SELFPAY ==
--- NOTE | 2025-01-08 08:15 | DI.US_ITS ---
APPROVED REPORT EXAM: Comprehensive 2D, Doppler, and color-flow Echocardiogram Patient Location: Out-Patient Environmental Engineering Technician: Adin Daniels RDCS (AE) Indications: Check LV function, atrial fibrillation Other Information Study Quality: Fair. Technically limited study due to body habitus. Conclusion Normal left ventricular wall thickness and chamber size. Ejection fraction is 60 to 65%. Wall motion is normal Normal right ventricular size and function Both atria are normal in size There is no structural or hemodynamically significant valvular disease Wall motion Left Ventricle The left ventricle is normal size. The left ventricular systolic function is normal. The left ventricular ejection fraction is within the normal range. There is normal left ventricular wall thickness. There is normal LV segmental wall motion. There is no ventricular septal defect visualized. LVEF is 60-65%. Right Ventricle The right ventricle is normal size. The right ventricular systolic function is normal. Atria The left atrium size is normal. The right atrium size is normal. The interatrial septum is intact with no evidence for an atrial septal defect. Aortic Valve The aortic valve is normal in structure. There is no aortic valvular stenosis. No aortic regurgitation is present. Mitral Valve The mitral valve is normal in structure. No evidence of mitral valve stenosis. Trace mitral regurgitation. Tricuspid Valve The tricuspid valve is normal in structure. There is no tricuspid valve stenosis. Trace tricuspid regurgitation. Pulmonic Valve The pulmonary valve is normal in structure. There is no pulmonic valvular stenosis. There is no pulmonic valvular regurgitation. Great Vessels The aortic root is normal in size. The ascending aorta is normal in size. Aortic arch is not well visualized. IVC is normal in size and collapses >50% with inspiration. Pericardium There is no pericardial effusion. 2D Dimensions IVSD d PLAX 0.85 cm M: 0.6-1.2 Ao Root d 3.04 cm M: 3.1 - 3.7 LVPW d PLAX 0.85 cm M: 0.6 - 1.2 Ao Asc Diam d 3.47 cm M: 2.6 - 3.4 LVID d PLAX 5.46 cm M: 4.2 - 5.8 LVDs 3.71 cm M: 2.5 - 4.0 LV EF Teichholz 59.5 % FS 31.97 % LV EDV (Teich) 144.8 mL LV ESV (Teich) 58.6 mL Stroke Vol Index (Teich) 37.16 M-Mode TAPSE 1.95 cm (M/F) >1.7 Auto EF LV EDV A4C 114.7 mL LV EDV A2C 120.2 mL LV EDV BP 117.0 mL LV ESV A4C 40.8 mL LV ESV A2C 43.3 mL LV ESV BP 41.6 mL LVEF(%) A4C 64.4 % LVEF(%) A2C 64.0 % LVEF(%) BP 64.4 % LV SV A4C 73.9 ml LV SV A2C 76.9 ml LV SV BP 75.4 ml LV CO A4C 4.8 L/min LV CO A2C 5.3 L/min LV CO BP 5.1 L/min HR A4C 65.22 BPM HR A2C 68.97 BPM LV EDV Index (BP) LA Volume LA Length A4C 5.9 cm LA Length A2C 5.8 cm LA Area A4C s 14.31 cm2 LA Area A2C s 14.61 cm2 LA Vol A4C A-L 29.43 mL LA Vol A2C A-L 31.27 mL LA Vol Biplane A-L 30.6 mL LA Vol/BSA A4C A-L LA Vol/BSA A2C A-L LA Vol/BSA BP A-L 13.2 mL/m2 LA Vol A4C MOD 28.3 mL LA Vol A2C MOD 30.6 mL LA Vol BP MOD 29.6 mL RA Volume RA Area A4C 11.2 cm2 RA ESV A4C (A-L) 24.7mL RA Vol/BSA A4C A-L RA Length A4C 4.3 cm RA ESV A4C (MOD) 24.8mL LV Diastology MV E' medial 0.069 (>0.07 m/s) MV E Vmax 0.93 (0.4-1.3 m/s) MV E/E' MED 13.56 (<14) MV A Vmax 1.05 (0.4-1.3 m/s) MV E' lateral 0.125 (>0.1 m/s) E/A Ratio 0.9 MV E/E' LAT 7.46 (<14) MV E' Average 0.097 m/s MV E/E'(average) 9.62 Aortic Valve AoV Vmax 1.93 m/s LVOT Vmax 1.50 m/s AoV Peak Grad 14.9 mmHg LVOT Peak Grad 8.9 mmHg AoV Area (Vmax) 2.62 cm2 LVOT VTI 0.260 m AoV VTI 0.390 m LVOT Mean Grad 5.1 mmHg AoV Mean Wale. 1.33 m/s LVOT SV 87.88 mL AoV Mean Grad 8.2 mmHg LVOT Diam s 2.05 cm AoV Area (VTI) 2.25 cm2 AV Regurg Peak Gr. 14.86 mmHg Velocity Ratio 0.78 Mitral Valve MV DT 278 (160-240 msec) Pulmonary Valve PV Vmax 1.26 (0.5-1.5 m/s) RVOT Vmax 1.08 m/s PV Peak Grad 6.5 mmHg RVOT Peak Gr. 4.7 mmHg PV Mean Wale 0.92 m/s RVOT VTI 0.194 m PV Mean Grad 3.7 mmHg RVOT Mean Gr. 2.9 mmHg
== END 2025-01-08 02:03 ==
LOC: DI 01:43
PROVIDERS: PCP Student in an Organized Health Care Education/Training Program; Visit Provider Internal Medicine Cardiovascular Disease
DX: I48.92 Unspecified atrial flutter (principal)
CPT/HCPCS: 93306

== ENCOUNTER 2025-01-08 13:39 | Outpatient (CLI) | payer MEDICARE, SELFPAY ==
--- NOTE | 2025-01-08 | DI.RAD_ITS ---
Exam(s) XR CHEST 2V PA LATERAL EXAM: XR CHEST 2V PA LATERAL CLINICAL HISTORY: ACUTE COUGH,R05.1 TECHNIQUE: 2D digital imaging was performed of the chest. Three images were obtained. PA and later al views were obtained. COMPARISON: CR,XR XR CHEST 2V PA LATERAL from 04/19/2019 CR,XR XR CHEST 2V PA LATERAL from 03/26/[address] CHEST LUNG CANCER SCREEN from 11/25/2024 FINDINGS: MEDIASTINUM: Normal. HEART: Normal. PULMONARY VASCULATURE: Normal. LUNGS: There is scarring/atelectasis seen in the left lingula. This can be visualized on the CT scan from 11/25/2024. No new infiltrates are seen in the lungs. PLEURAL SPACE: No pleural effusion or pneumothorax. BONE:Within normal limits for the patient's age. OTHER FINDINGS:Normal. IMPRESSION: 1. Scarring or atelectasis is seen in the left lingula. This is unchanged compared to the CT examina tion from 11/25/2024. 2. No new infiltrates are seen. DATA REPOSITORY: RADIATION DOSE DELIVERED:
[2025-01-08 16:11] LABS: ALT 30 U/L (16-63); AST 26 U/L (15-37); Albumin 3.5 g/dL (3.4-5.0); Alkaline Phosphatase 99 U/L (46-116); Anion Gap 9.4 mmol/L (3-11); BUN 20 mg/dL (7-18); Bilirubin, Total 0.6 mg/dL (0.2-1.0); CO2 29.6 mmol/L (21.0-32.0); Calcium 9.3 mg/dL (8.5-10.1); Chloride 102 mmol/L (98-107); Estimated GFR 81.98 (mL/min/1.73m2); Glucose 114 mg/dL (74-106); Sodium 141 mmol/L (136-145); Total Protein 7.1 g/dL (6.4-8.2)
== END 2025-01-08 13:59 ==
LOC: DI 13:40
PROVIDERS: PCP Student in an Organized Health Care Education/Training Program; Visit Provider Student in an Organized Health Care Education/Training Program
DX: R05.1 Acute cough (principal); R91.8 Other nonspecific abnormal finding of lung field
CPT/HCPCS: 80053; 93306; 71046

== ENCOUNTER 2025-01-22 15:17 | Emergency (ER) | payer MEDICARE, SELFPAY ==
[2025-01-22] VITALS (39 sets, daily range): BP systolic 87–154; BP diastolic 52–94; PULSE 56–109; RESP 11–36; TEMP 36.7; O2SAT 88–97
--- NOTE | 2025-01-22 15:15 | RT.EKG_ITS ---
APPROVED REPORT Exam: Resting ECG Reason for Exam: sob Patient Location: E HR:75 bpm ECG Measurements Heart Rate 75 AXIS [place] 173 P -76 QRSd 101 QRS 86 QT 364 T 66 QTc 407 Conclusion ectopic atrial no stemi
--- NOTE | 2025-01-22 15:30 | DI.RAD_ITS ---
Exam(s) XR CHEST 2V PA LATERAL EXAM: XR CHEST 2V PA LATERAL CLINICAL HISTORY: SOB, cough, h/o COPD TECHNIQUE: 2D digital imaging was performed of the chest. Two images were obtained. PA and lateral views were obtained. COMPARISON: CR XR CHEST 2V PA LATERAL from 01/08/2025 FINDINGS: MEDIASTINUM: Normal. HEART: Normal. PULMONARY VASCULATURE: Normal. LUNGS: There is linear atelectasis in the left lung base. The lungs are hyperinflated with flattened diaphragms suggesting underlying COPD. No focal consolidating infiltrates are present. PLEURAL SPACE: No pleural effusion or pneumothorax. BONE:Within normal limits for the patient's age. OTHER FINDINGS:Normal. IMPRESSION: No focal consolidating infiltrates are present. DATA REPOSITORY: RADIATION DOSE DELIVERED:
--- NOTE | 2025-01-22 15:46 | W.ED.GENAD ---
Discharge Plan Disposition Patient Disposition: Against Medical Advice Discharge Details Clinical Impression: Asthma exacerbation in COPD, Low O2 saturation Primary Care Provider: Seng Muniz ED Provider: Margarette Lombardo Home Meds and New Rx's Prescriptions: New azithromycin 250 mg tablet 250 mg PO DAILY 4 Days Qty: 4 0RF Rx Instructions: start on day 2 of therapy prednisone 20 mg tablet 60 mg PO DAILY 7 Days Qty: 21 0RF Continued nitroglycerin [Nitrostat] 0.4 mg tablet, sublingual 0.4 mg sublingual Q5M PRN Patient Comments: pt. states he doesnt have anymore Rx Instructions: do not exceed 3 doses per episode cetirizine 10 mg tablet 10 mg PO DAILY PRN Dulera 100-5 mcg/actuation HFA aerosol inhaler 2 puff inhalation BID spironolactone 25 mg tablet 25 mg PO DAILY atorvastatin 20 mg tablet 20 mg PO QHS furosemide 40 mg tablet 40 mg PO DAILY metoprolol succinate 50 mg tablet extended release 24 hr 50 mg PO DAILY magnesium oxide 400 mg magnesium tablet 400 mg PO BID Xarelto 20 mg tablet See Rx Instructions .ROUTE .COMPLEX Qty: 90 3RF Dose Instruction: TAKE ONE TABLET BY MOUTH EVERY DAY Rx Instructions: TAKE ONE TABLET BY MOUTH EVERY DAY omeprazole 20 MG capsule,delayed release(DR/EC) 20 mg PO DAILY albuterol sulfate [ProAir HFA] 200 PUFF HFA aerosol inhaler 2 puff Inhalation Q4H PRN PRN tiotropium bromide [Spiriva with HandiHaler] 1 PUFF capsule, w/inhalation device 1 puff Inhalation DAILY 0RF Changed ipratropium-albuterol 0.5 mg-3 mg(2.5 mg base)/3 mL solution for nebulization 3 ml inhalation Q4H PRN (Reason: shortness) Qty: 30 0RF Discharge Instructions Additional Instructions: You have decided to leave AGAINST MEDICAL ADVICE. It is recommended that you stay in the hospital overnight for management of your COPD exacerbation, especially as your oxygen saturation remains low. Please note that choosing not to pursue recommended treatment may result in permanent disability, worsening of current condition, or . You are welcome to return at any time for reassessment. Please call your primary care provider's office first thing in the morning to schedule follow-up appointment on Monday or Monday. You are being treated for COPD exacerbation. I recommend that you continue to use your nebulizer treatments (duoneb) every 4 hours as needed. You are also being prescribed prednisone and azithromycin. Please take as prescribed. You may use Mucinex DM as needed for cough. It may be helpful to sleep with a humidifier at your bedside. Prop yourself up with pillows to help with clearing mucus Return to emergency care if develop new shortness of breath, dizziness, episodes of feeling going to pass out, chest pain, or if you are very worried and need to be rechecked again immediately. Referrals: Seng Muniz [Primary Care Provider, Medicine] HPI General Date/Time Provider Initiated Documentation: 01/22/25 15:32. HPI Narrative: Noah is a 69-year-old male with COPD, hypertension, hyperlipidemia, and atrial fibrillation anticoagulated with Xarelto, presenting with dyspnea, runny nose, and nonproductive cough with chest soreness with cough only x 4 days. Denies fever/chills, sore throat, other chest pain, n/v, abdominal pain, change in bowel function, or change in pedal edema from baseline. Has been staying hydrated but concerned that he has had decreased urine output. Has AC at home. Arrived in ED by car. Seen by PCP Dr. Seng Muniz on 01/09/2025, prescribed antibiotics and prednisone for PNA. Initial improvement, then deterioration post-medication. Symptoms similar to initial presentation. [place] well during ocean visit on 01/17/2025, but started feeling unwell after returning home on 01/19/2025. Using albuterol hourly, nebulizer twice daily, and CPAP. No symptom improvement. Does not use O2 at home, today O2 sat 88% in tirage. PMH significant for COPD, afib, CHF, HTN, HLD. Related Data Home Medications ?Medication ?Instructions ?Recorded ?Confirmed albuterol sulfate 90 mcg/actuation 2 puff inhalation Q4H PRN PRN 08/25/15 01/22/25 aerosol inhaler (ProAir HFA) omeprazole 20 mg capsule,delayed 20 mg PO DAILY 08/25/15 01/22/25 release tiotropium bromide 18 mcg capsule 1 puff inhalation DAILY 08/18/16 01/22/25 with inhalation device (Spiriva with HandiHaler) nitroglycerin 0.4 mg sublingual 0.4 mg sublingual Q5M PRN 03/02/23 01/22/25 tablet (Nitrostat) atorvastatin 20 mg tablet 20 mg PO QHS 03/28/23 01/22/25 cetirizine 10 mg tablet 10 mg PO DAILY PRN 03/28/23 01/22/25 furosemide 40 mg tablet 40 mg PO DAILY 03/28/23 01/22/25 metoprolol succinate 50 mg 50 mg PO DAILY 03/28/23 01/22/25 tablet,extended release 24 hr mometasone-formoterol HFA 100 2 puff inhalation BID 03/28/23 01/22/25 mcg-5 mcg/actuation aerosol inhaler (Dulera) spironolactone 25 mg tablet 25 mg PO DAILY 03/28/23 01/22/25 magnesium oxide 400 mg PO BID 11/07/24 01/22/25 rivaroxaban 20 mg tablet (Xarelto) See Rx Instructions .Route 11/26/24 01/22/25 .COMPLEX #90 tabs azithromycin 250 mg tablet 250 mg PO DAILY 4 days #4 tabs 01/22/25 ipratropium 0.5 mg-albuterol 3 mg 3 ml inhalation Q4H PRN shortness 01/22/25 (2.5 mg base)/3 mL nebulization #30 mL soln prednisone 20 mg tablet 60 mg (3 x 20 mg) PO DAILY 7 days 01/22/25 #21 tabs Previous Rx's ?Medication ?Instructions ?Recorded tiotropium bromide 18 mcg capsule 1 puff inhalation DAILY 08/18/16 with inhalation device (Spiriva with HandiHaler) rivaroxaban 20 mg tablet (Xarelto) See Rx Instructions .Route 11/26/24 .COMPLEX #90 tabs azithromycin 250 mg tablet 250 mg PO DAILY 4 days #4 tabs 01/22/25 ipratropium 0.5 mg-albuterol 3 mg 3 ml inhalation Q4H PRN shortness 01/22/25 (2.5 mg base)/3 mL nebulization #30 mL soln prednisone 20 mg tablet 60 mg (3 x 20 mg) PO DAILY 7 days 01/22/25 #21 tabs Allergies Allergy/AdvReac Type Severity Reaction Status Date / Time Sulfa (Sulfonamide Allergy Intermediate Skin Rash Verified 11/07/24 13:27 Antibiotics) ciprofloxacin Allergy Itching Verified 11/07/24 13:27 lisinopril AdvReac Mild cough Verified 11/07/24 13:27 mold AdvReac Other (See Uncoded 11/07/24 13:27 Comment) General Stated Complaint: SOB ERICKA: 3 Exam Narrative Exam Narrative: General Appearance: Respiratory distress. Vital signs: O2 88% on RA, 92% on supplemental O2 via NC HEENT: Oropharynx clear. Slightly tacky MM. Respiratory: Decreased breath sounds bilaterally, coarse lung sounds throughout. Cardiovascular: Regular rate, irregular rhythm. radial pulses equal bilaterally Gastrointestinal: Abdomen soft, non-tender to palpation, ventral hernia noted. Extremities: bilateral pitting edema noted to lower legs Skin: Warm and dry, no rash. Psychiatric: Normal. Course Vital Signs Vital signs: Vital Signs Temperature 36.7 C 01/22/25 15:21 Pulse 56 L 01/22/25 15:21 Respiratory Rate 32 H 01/22/25 15:21 Blood Pressure 120/60 01/22/25 15:21 Pulse Oximetry 88 L 01/22/25 15:21 Temperature 36.7 C 01/22/25 15:21 Temperature Source Oral 01/22/25 15:21 Pulse 56 L 01/22/25 15:21 Respiratory Rate 32 H 01/22/25 15:21 Blood Pressure 120/60 01/22/25 15:21 Blood Pressure Position Sitting 01/22/25 15:21 Pulse Oximetry 88 L 01/22/25 15:21 Oxygen Delivery Method Room Air 01/22/25 15:21 Oxygen Flow Rate 0 01/22/25 15:21 Medical Decision Making Initial Assessment: 69-year-old male with COPD, hypertension, hyperlipidemia, and atrial fibrillation on Xarelto, presents with worsening dyspnea and cough. Differential Diagnosis includes but is not limited to: viral illness, COPD exacerbation, pneumonia, ACS, CHF, dehydration, electrolyte imbalance, spontaneous pneumothorax less likely. After arrival to ED, BP did trend down into the 80s systolic- pt now meets sepsis criteria. Blood cultures ordered. Gentle hydration w 500 cc boluses provided as pt has h/o CHF. ED Course: - Nebulizer treatments (DuoNebs x 2) and solumedrol IV administered; Noah reports full improvement of symptoms and returned to work of breathing to baseline, however did continue to have O2 sats around 90% at rest. -supplemental O2 to maintain sats - Azithromycin given I independently interpreted the following tests: EKG shows sinus arrhythmia, normal intervals, no changes consistent with acute ischemia. CBC, VBG, serial troponins, COVID/flu/RSV all reassuring. Initial lactic 2.4, resolved to 1.4 after IV fluids given. Chest x-ray reassuring, no obvious infiltrates noted. This was confirmed by radiologist. Cardiac workup today reassuring. History and presentation today consistent with COPD exacerbation with hypoxia Disposition: I strongly advised Noah to stay overnight for COPD exacerbation management, he declines admission, choosing to leave AMA. I did review extensively the risks associated with leaving AMA. Noah voices acknowledgment of risks, says that he will return to ED as needed. Will provide azithromycin, prednisone, and DuoNeb prescriptions. Recommend close follow-up with PCP, which Dori is agreeable to doing. 1. I explained the current situation and condition to the patient. 2. I explained the recommended treatment for this condition -admission for COPD management 3. I explained the risk of not having the recommended treatment -worsening of condition, disability, , loss of lifestyle 4. The patient understands this information has no questions, and repeated back this information. 5. The patient states that they need to leave and will return as needed, is agreeable to following up with PCP in the next couple of days 6. Mental status is lucid and the patient has decision-making capacity. Patient consented to the use of [facility] Imaging Data Radiologic Study: Radiologist's impression: Exam(s) XR CHEST 2V PA LATERAL EXAM: XR CHEST 2V PA LATERAL CLINICAL HISTORY: SOB, cough, h/o COPD TECHNIQUE: 2D digital imaging was performed of the chest. Two images were obtained. PA and lateral views were obtained. COMPARISON: CR XR CHEST 2V PA LATERAL from 01/08/2025 FINDINGS: MEDIASTINUM: Normal. HEART: Normal. PULMONARY VASCULATURE: Normal. LUNGS: There is linear atelectasis in the left lung base. The lungs are hyperinflated with flattened diaphragms suggesting underlying COPD. No focal consolidating infiltrates are present. PLEURAL SPACE: No pleural effusion or pneumothorax. BONE:Within normal limits for the patient's age. OTHER FINDINGS:Normal. IMPRESSION: No focal consolidating infiltrates are present. PFSH All Active Problems (Updated 01/22/25 @ 19:04 by Margarette Gabriel) Low O2 saturation (Acute) Asthma exacerbation in COPD (Acute) Dog bite of hand (Acute) Chest pain (Acute) COPD (chronic obstructive pulmonary disease) (Chronic) Tooth abscess (Acute) Leg edema (Chronic) Cigarette smoker (Chronic) Atrial fibrillation (Chronic) Hypomagnesemia (Chronic) HTN (hypertension) (Chronic) Hypertriglyceridemia (Chronic) GERD (gastroesophageal reflux disease) (Chronic) Prediabetes (Acute) Degenerative disc disease, lumbar (Acute) Atrial flutter (Acute) Medical History Ulnar neuropathy Blepharitis History of hypokalemia Blepharitis of eyelid of left eye Sleep apnea Former smoker pt. states he smokes still Hx of adenomatous colonic polyps Obesity Alcohol abuse, in remission pt. states he still smokes Surgical History Hx of cardiac catheterization pt. unsure but states they went up through his leg vein to look at his heart Hx of inguinal hernia repair Hx of colonoscopy Social History Smoking/Tobacco Use Status: Current every day Tobacco Type: cigarettes Smoking packs per day: 1 Smoking cigarettes per day: 20.0 Smoking risk assessment performed?: Yes Alcohol Intake: current Alcohol Intake frequency: 3 or more drinks per day Alcohol type: beer Drug use: Never Substance use type: does not use Details: alcohol: t-3, 9 beers Housing: apartment Do you feel safe at home: Yes Additional Social history: lives alone, unable to assess privately
[2025-01-22 16:09] LABS: BE (Venous) 4 mmol/L (-2-3); HCO3 (Venous) 29 mmol/L (23-28); O2 Sat (Venous) 68 %; TCO2 (Venous) 26 mmol/L (24-29); pCO2 (Venous) 47 mmHg (41-51); pO2 (Venous) 34 mmHg
[2025-01-22] MEDS: Albuterol/Ipratropium 3 ML UPD VIAL UPD ×2 (16:12→18:14)
[2025-01-22] MEDS: methylPREDNISolone SUCC 125 MG VIAL IVP (16:12)
[2025-01-22] MEDS: Normal Saline 500 ML IV (16:13)
[2025-01-22 16:14] LABS: Abs Immature Grans 0.05 10^3/uL (0.0-0.06); Absolute Basophil Count 0.04 10^3/uL (0.0-0.2); Absolute Eosinophil Count 0.06 10^3/uL (0.0-0.7); Absolute Lymphocyte Count 0.95 10^3/uL (1.2-3.4); Absolute Monocyte Count 0.42 10^3/uL (0.1-0.8); Absolute Neutrophil Count 7.87 10^3/uL (1.2-6.7); Basophils % 0.4 %; Eosinophils % 0.6 %; HCT 44.1 % (40.0-50.0); HGB 14.7 g/dL (13.5-17.5); Immature Grans % 0.5 %; Lymphocytes % 10.1 %; MCHC 33.3 % (32.0-36.0); MCV 96 fL (80-95); MPV 10.1 fL (8.0-11.0); Monocytes % 4.5 %; Neutrophils % 83.9 %; Platelet Count 220 10^3/uL (130-400); RBC 4.59 10^6/uL (4.36-5.78); RDW 13.2 % (11.8-14.1); RDW-SD 46.8 fL; WBC 9.39 10^3/uL (4.4-10.8)
[2025-01-22 16:27] LABS: COVID-19 PCR Negative (Negative); Influenza A PCR Negative (Negative); Influenza B PCR Negative (Negative); RSV PCR Negative (Negative)
[2025-01-22 16:31] LABS: Source Nasopharynx
[2025-01-22 16:34] LABS: Lactate 2.4 mmol/L (<or=2.0)
--- NOTE | 2025-01-22 16:42 | NUR.NOTE ---
Nursing Note:pt refusing second set of BC.
--- NOTE | 2025-01-22 17:15 | RT.EKG_ITS ---
APPROVED REPORT Exam: Resting ECG Reason for Exam: recheck rhythm Patient Location: E HR:86 bpm ECG Measurements Heart Rate 86 AXIS IN 175 P -73 QRSd 106 QRS 86 QT 388 T 62 QTc 465 Conclusion Ectopic atrial rhythm 86 no stemi
[2025-01-22 17:31] LABS: Troponin I 15 ng/L (<or=76)
[2025-01-22 17:34] LABS: Lactate 1.4 mmol/L (<or=2.0)
[2025-01-22 17:52] LABS: ALT 27 U/L (16-63); AST 21 U/L (15-37); Albumin 2.9 g/dL (3.4-5.0); Alkaline Phosphatase 77 U/L (46-116); Anion Gap 7.5 mmol/L (3-11); BUN 14 mg/dL (7-18); Bilirubin, Total 0.4 mg/dL (0.2-1.0); CO2 28.5 mmol/L (21.0-32.0); Calcium 8.7 mg/dL (8.5-10.1); Chloride 106 mmol/L (98-107); Estimated GFR 81.98 (mL/min/1.73m2); Glucose 120 mg/dL (74-106); Magnesium 1.5 mg/dL (1.8-2.4); Potassium 3.9 mmol/L (3.5-5.1); Sodium 142 mmol/L (136-145); Total Protein 6.9 g/dL (6.4-8.2); Troponin I 14 ng/L (<or=76)
[2025-01-22] MEDS: Azithromycin 250 MG TAB 500 MG PO (19:33)
[2025-01-22] MEDS: Magnesium Oxide 400 MG TAB PO (19:33)
== END 2025-01-22 20:04 | disposition left against medical advice (07) ==
PROVIDERS: Emergency Provider Nurse Practitioner Family; PCP Student in an Organized Health Care Education/Training Program
DX: J44.1 Chronic obstructive pulmonary disease with (acute) exacerbation (principal); R79.81 Abnormal blood-gas level; Z53.29 Procedure and treatment not carried out because of patient's decision for other reasons
CPT/HCPCS: 99285; 99284; 96374; 94640; 36415; 80053; 82805; 87040; 87637; 93005; 96361; 71046; 83605; 83735; 84484; 85025; 93010; J2919; J7620

== ENCOUNTER 2025-02-27 03:17 | Outpatient (CLI) | payer MEDICARE, SELFPAY ==
[2025-02-27] MEDS: Inhaler, Assist Device 1 EACH MC (15:58)
[2025-02-27] MEDS: Levalbuterol HFA 15 GM INH 4 PUFF IH (15:58)
--- NOTE | 2025-03-03 09:05 | W.PFT ---
Date of service: 02/27/25 Time of Service: 14:44 Pulmonary Function Test Result Indications: COPD Impression 1. Good patient effort was noted. ATS standards for reproducibility were met. 2. Spirometry showed severe obstructive lung disease with an FEV1 of 48% (1.39 L) 3. Following the administration of a bronchodilator there was not a significant response 4. TLC and RV were elevated, consistent with air trapping 5. DLCO was 68%, consistent with a moderate defect in alveolar gas exchange
== END 2025-02-27 03:18 | disposition home or self-care (01) ==
LOC: RT 03:17
PROVIDERS: PCP Student in an Organized Health Care Education/Training Program; Visit Provider Student in an Organized Health Care Education/Training Program
DX: J44.9 Chronic obstructive pulmonary disease, unspecified (principal)
CPT/HCPCS: 94060; 94726; 94729

== ENCOUNTER → 2025-03-12 14:04 | Outpatient (BNVA) | payer MEDICARE, MEDICAID, SELFPAY | PROVIDERS: PCP Student in an Organized Health Care Education/Training Program; Referring Provider Student in an Organized Health Care Education/Training Program; Visit Provider Surgery | DX: K43.9 Ventral hernia without obstruction or gangrene (principal); I48.91 Unspecified atrial fibrillation; J44.9 Chronic obstructive pulmonary disease, unspecified; F17.210 Nicotine dependence, cigarettes, uncomplicated; Z99.81 Dependence on supplemental oxygen | CPT/HCPCS: 99214 ==

== ENCOUNTER → 2025-04-03 13:11 | Outpatient (BNVA) | payer MEDICARE, MEDICAID, SELFPAY | PROVIDERS: PCP Student in an Organized Health Care Education/Training Program; Referring Provider Student in an Organized Health Care Education/Training Program; Visit Provider Physician Assistant Surgical | DX: J44.9 Chronic obstructive pulmonary disease, unspecified (principal); F17.210 Nicotine dependence, cigarettes, uncomplicated; K21.9 Gastro-esophageal reflux disease without esophagitis; G47.30 Sleep apnea, unspecified | CPT/HCPCS: 94618; 99214 ==

== ENCOUNTER 2025-04-30 13:48 | Emergency (ER) | payer MEDICARE, SELFPAY ==
[2025-04-30] VITALS (21 sets, daily range): BP systolic 99–135; BP diastolic 50–96; PULSE 72–144; RESP 15–33; TEMP 36.5–36.7; O2SAT 89–94
--- NOTE | 2025-04-30 13:45 | RT.EKG_ITS ---
APPROVED REPORT Exam: Resting ECG Reason for Exam: SOB Patient Location: E HR:120 bpm ECG Measurements Heart Rate 120 AXIS NM [id number] P [id number] QRSd 100 QRS 100 QT 299 T 57 QTc 428 Conclusion Atrial flutter with 2:1 AV block, v-rate 120 No interval abnormalities otherwise No STEMI Compared to prior, A-flutter is new, rate is increased
--- NOTE | 2025-04-30 14:00 | DI.RAD_ITS ---
Exam(s) XR PORTABLE CHEST AP EXAM: XR PORTABLE CHEST AP CLINICAL HISTORY: shortness of breath TECHNIQUE: 2D digital imaging was performed. COMPARISON: No exams were available for comparison FINDINGS: Moderate ring leads overlie the chest LUNGS: Clear. No pleural abnormality seen however lung bases are partially obscured.. HEART: Normal size. AORTA: Normal diameter. BONES: Unremarkable for age. Soft tissues: Unremarkable. IMPRESSION: The left lung base is poorly visualized. Infiltrate cannot be excluded. DATA REPOSITORY: RADIATION DOSE DELIVERED:
[2025-04-30] MEDS: dilTIAZem 25 MG/5 ML VIAL IVP (14:34)
[2025-04-30 14:37] LABS: Abs Immature Grans 0.02 10^3/uL (0.0-0.06); HCT 46.9 % (40.0-50.0); HGB 15.5 g/dL (13.5-17.5); Immature Grans % 0.3 %; MCH 30.9 pg (27.0-33.0); MCHC 33.0 % (32.0-36.0); MCV 93 fL (80-95); MPV 10.2 fL (8.0-11.0); Platelet Count 198 10^3/uL (130-400); RBC 5.02 10^6/uL (4.36-5.78); RDW 13.4 % (11.8-14.1); RDW-SD 46.2 fL; WBC 7.69 10^3/uL (4.4-10.8)
--- NOTE | 2025-04-30 14:45 | RT.EKG_ITS ---
APPROVED REPORT Exam: Resting ECG Reason for Exam: back pain Patient Location: E HR:83 bpm ECG Measurements Heart Rate 83 AXIS W[place] 184 P -89 QRSd 119 QRS 83 QT 476 T 61 QTc 526 Conclusion Atrial flutter, rate 83 Prolonged QTc 526ms No STEMI Compared to prior, rate has decreased
[2025-04-30 15:12] LABS: ALT 24 U/L (16-63); AST 22 U/L (15-37); Albumin 3.3 g/dL (3.4-5.0); Alkaline Phosphatase 104 U/L (46-116); Anion Gap 7.4 mmol/L (3-11); BUN 14 mg/dL (7-18); Bilirubin, Total 0.6 mg/dL (0.2-1.0); CO2 29.6 mmol/L (21.0-32.0); Calcium 8.9 mg/dL (8.5-10.1); Chloride 102 mmol/L (98-107); Estimated GFR 73.12 (mL/min/1.73m2); Glucose 116 mg/dL (74-106); NT-proBNP 505 pg/mL (<300); Potassium 4.3 mmol/L (3.5-5.1); Sodium 139 mmol/L (136-145); Total Protein 7.4 g/dL (6.4-8.2); Troponin I 17 ng/L (<or=76)
[2025-04-30] MEDS: Metoprolol 25 MG TAB PO (15:24)
[2025-04-30 16:05] LABS: Lab Add On Test DONE
[2025-04-30 16:33] LABS: TSH 1.94 uIU/mL (0.36-3.74)
--- NOTE | 2025-05-01 15:19 | W.ED.GENAD ---
Discharge Plan Disposition Patient Disposition: Home Discharge Details Clinical Impression: Atrial fibrillation and flutter, Back pain Primary Care Provider: Seng Muniz ED Provider: Kady Ortiz Home Meds and New Rx's Prescriptions: Continued spironolactone 25 mg tablet 25 mg PO DAILY atorvastatin 20 mg tablet 20 mg PO QHS furosemide 40 mg tablet 40 mg PO DAILY magnesium oxide 400 mg magnesium tablet 400 mg PO BID Xarelto 20 mg tablet See Rx Instructions .ROUTE .COMPLEX Qty: 90 3RF Dose Instruction: TAKE ONE TABLET BY MOUTH EVERY DAY Rx Instructions: TAKE ONE TABLET BY MOUTH EVERY DAY icosapent ethyl [Vascepa] 1 gram capsule 2 g PO BID Breztri Aerosphere 160-9-4.8 mcg/actuation HFA aerosol inhaler 2 inh inhalation BID icosapent ethyl [Vascepa] 1 gram capsule 2 g PO BID omeprazole 20 MG capsule,delayed release(DR/EC) 20 mg PO DAILY albuterol sulfate [ProAir HFA] 200 PUFF HFA aerosol inhaler 2 puff Inhalation Q4H PRN PRN ipratropium-albuterol 0.5 mg-3 mg(2.5 mg base)/3 mL solution for nebulization 3 ml inhalation Q4H PRN (Reason: shortness) Qty: 30 0RF No Action metoprolol succinate 100 mg tablet extended release 24 hr 100 mg PO DAILY Qty: 90 0RF Rx Instructions: increase dose morphine 10 mg/5 mL solution 5 mg PO Q4H MDD 30ml PRN (Reason: dyspnea) Qty: 100 0RF Discharge Instructions Instructions: Atrial Fibrillation (DC) Additional Instructions: You came into the hospital with back pain and a very fast heartbeat consistent with atrial flutter You received medication and your heart rate slowed and your pain disappeared, I suspect that the pain was secondary to decreased flow to your heart I recommend an outpatient stress test Please be sure to take all your medications as prescribed We talked about performing CAT scan and additional blood work however you have declined at this time Please work on your alcohol and tobacco consumption. If you could cut down to 1 pack of cigarettes daily and 1-2 drinks a night it would help your health greatly Please call your PCP tomorrow and return immediately should you develop worsening chest pain, shortness of breath, or should any new concerns arise Referrals: Seng Muniz [Primary Care Provider, Medicine] Discharge Data Discharge Date/Time-TO BE ENTERED AT DEPARTURE: 04/30/25 16:02 HPI General Date/Time Provider Initiated Documentation: 04/30/25 13:55. HPI Narrative: This 69-year-old gentleman with history of atrial fibrillation hypertension COPD hypertriglyceridemia hyperlipidemia chronic anticoagulation chronic pain alcoholism 2 pack-a-day smoker presents with onset of back pain and shortness of breath that started yesterday while he was drinking a beer. He drinks between 6 to 12,12 ounce beers daily. Denies history of withdrawals. States he has not had pain like this previously. States been constant since onset denies known exacerbating or alleviating factors. Has been taking all medications as prescribed. Denies anterior chest pain calf pain or swelling recent surgeries long drives or history of PE or DVT/coagulopathy. Denies known coronary artery disease. Has not had a stress test. Related Data Home Medications ?Medication ?Instructions ?Recorded ?Confirmed albuterol sulfate 90 mcg/actuation 2 puff inhalation Q4H PRN PRN 08/25/15 04/30/25 aerosol inhaler (ProAir HFA) omeprazole 20 mg capsule,delayed 20 mg PO DAILY 08/25/15 04/30/25 release atorvastatin 20 mg tablet 20 mg PO QHS 03/28/23 04/30/25 furosemide 40 mg tablet 40 mg PO DAILY 03/28/23 04/30/25 spironolactone 25 mg tablet 25 mg PO DAILY 03/28/23 04/30/25 magnesium oxide 400 mg PO BID 11/07/24 04/30/25 rivaroxaban 20 mg tablet (Xarelto) See Rx Instructions .Route 11/26/24 04/30/25 .COMPLEX #90 tabs ipratropium 0.5 mg-albuterol 3 mg 3 ml inhalation Q4H PRN shortness 01/22/25 04/30/25 (2.5 mg base)/3 mL nebulization #30 mL soln budesonide 160 mcg-glycopyr 9 2 inh inhalation BID 02/21/25 04/30/25 mcg-formot 4.8 mcg/actuation HFA inhaler (Breztri Aerosphere) icosapent ethyl 1 gram capsule 2 g PO BID 02/21/25 04/30/25 (Vascepa) icosapent ethyl 1 gram capsule 2 g PO BID 03/04/25 04/30/25 (Vascepa) metoprolol succinate 100 mg 100 mg PO DAILY #90 tabs 05/01/25 tablet,extended release 24 hr morphine 10 mg/5 mL oral solution 5 mg (2.5 mL) PO Q4H PRN dyspnea 05/01/25 #100 mL Previous Rx's ?Medication ?Instructions ?Recorded rivaroxaban 20 mg tablet (Xarelto) See Rx Instructions .Route 11/26/24 .COMPLEX #90 tabs ipratropium 0.5 mg-albuterol 3 mg 3 ml inhalation Q4H PRN shortness 01/22/25 (2.5 mg base)/3 mL nebulization #30 mL soln metoprolol succinate 100 mg 100 mg PO DAILY #90 tabs 05/01/25 tablet,extended release 24 hr morphine 10 mg/5 mL oral solution 5 mg (2.5 mL) PO Q4H PRN dyspnea 05/01/25 #100 mL Allergies Allergy/AdvReac Type Severity Reaction Status Date / Time Sulfa (Sulfonamide Allergy Intermediate Skin Rash Verified 04/30/25 16:57 Antibiotics) ciprofloxacin Allergy Itching Verified 04/30/25 16:57 lisinopril AdvReac Mild cough Verified 04/30/25 16:57 mold AdvReac Other (See Uncoded 04/30/25 16:57 Comment) General Stated Complaint: SOB ERICKA: 3 Exam Narrative Exam Narrative: Chronically ill-appearing male, answering questions appropriately dyspneic wheezes no crackles morbidly obese 2+ edema bilateral lower extremities tachycardia, irregular, no murmur no reproducible back pain no rashes or lesions no abdominal bruit or pulsatile mass Course Vital Signs Vital signs: Vital Signs Temperature 36.5 C 04/30/25 13:58 Pulse 120 H 04/30/25 13:58 Respiratory Rate 24 04/30/25 13:58 Blood Pressure 122/81 04/30/25 13:58 Pulse Oximetry 89 L 04/30/25 13:58 Temperature 36.7 C 04/30/25 15:56 Temperature Source Oral 04/30/25 14:00 Pulse 81 04/30/25 15:56 Pulse 84 04/30/25 15:41 Respiratory Rate 15 04/30/25 15:56 Respiratory Effort Short of Breath, Labored 04/30/25 14:43 Respiratory Depth Deep 04/30/25 14:43 Respiratory Pattern Irregular 04/30/25 14:43 Blood Pressure 123/78 04/30/25 15:56 Blood Pressure Mean 69 04/30/25 15:41 Blood Pressure Position Supine 04/30/25 14:00 Pulse Oximetry 94 04/30/25 15:56 Oxygen Delivery Method Room Air 04/30/25 14:00 Oxygen Flow Rate 0 04/30/25 13:58 Pain Level 0 04/30/25 15:56 Lab/Test Results Lab/Test Results: 04/30/25 14:30 Blood Blood Culture - Pending 04/30/25 14:25 Blood Blood Culture - Pending Laboratory Tests Range/Units 04/30/25 04/30/25 04/30/25 14:25 14:52 15:10 WBC (4.4-10.8) 10^3/uL 7.69 RBC (4.36-5.78) 10^6/uL 5.02 Hgb (13.5-17.5) g/dL 15.5 Hct (40.0-50.0) % 46.9 MCV (80-95) fL 93 MCH (27.0-33.0) pg 30.9 MCHC (32.0-36.0) % 33.0 RDW (11.8-14.1) % 13.4 Plt Count (130-400) 10^3/uL 198 MPV (8.0-11.0) fL 10.2 Immature Gran % % 0.3 Neutrophils % % 77.2 Lymphocytes % % 13.9 Monocytes % % 7.7 Eosinophils % % 0.5 Basophils % % 0.4 Nucleated RBC % (0.0-0.3) % 0.0 Absolute Neutrophils (1.2-6.7) 10^3/uL 5.94 Absolute Lymphocytes (1.2-3.4) 10^3/uL 1.07 L Absolute Monocytes (0.1-0.8) 10^3/uL 0.59 Absolute Eosinophils (0.0-0.7) 10^3/uL 0.04 Absolute Basophils (0.0-0.2) 10^3/uL 0.03 VBG Lactate (<or=2.0) mmol/L 2.6 H* Sodium (136-145) mmol/L 139 Potassium (3.5-5.1) mmol/L 4.3 Chloride (98-107) mmol/L 102 Carbon Dioxide (21.0-32.0) mmol/L 29.6 Anion Gap (3-11) mmol/L 7.4 BUN (7-18) mg/dL 14 Creatinine (0.70-1.30) mg/dL 1.1 Est GFR (CKD-EPI 2020) (mL/min/1.73m2) 73.12 Glucose (74-106) mg/dL 116 H Calcium (8.5-10.1) mg/dL 8.9 Total Bilirubin (0.2-1.0) mg/dL 0.6 AST (15-37) U/L 22 ALT (16-63) U/L 24 Alkaline Phosphatase (46-116) U/L 104 Troponin I (<or=76) ng/L 17 Cancelled NT-Pro-B Natriuret Pep (<300) pg/mL 505 H Total Protein (6.4-8.2) g/dL 7.4 Albumin (3.4-5.0) g/dL 3.3 L TSH (0.36-3.74) uIU/mL 1.94 Add-On Test Request DONE Range/Units 04/30/25 17:10 WBC (4.4-10.8) 10^3/uL RBC (4.36-5.78) 10^6/uL Hgb (13.5-17.5) g/dL Hct (40.0-50.0) % MCV (80-95) fL MCH (27.0-33.0) pg MCHC (32.0-36.0) % RDW (11.8-14.1) % Plt Count (130-400) 10^3/uL MPV (8.0-11.0) fL Immature Gran % % Neutrophils % % Lymphocytes % % Monocytes % % Eosinophils % % Basophils % % Nucleated RBC % (0.0-0.3) % Absolute Neutrophils (1.2-6.7) 10^3/uL Absolute Lymphocytes (1.2-3.4) 10^3/uL Absolute Monocytes (0.1-0.8) 10^3/uL Absolute Eosinophils (0.0-0.7) 10^3/uL Absolute Basophils (0.0-0.2) 10^3/uL VBG Lactate (<or=2.0) mmol/L Sodium (136-145) mmol/L Potassium (3.5-5.1) mmol/L Chloride (98-107) mmol/L Carbon Dioxide (21.0-32.0) mmol/L Anion Gap (3-11) mmol/L BUN (7-18) mg/dL Creatinine (0.70-1.30) mg/dL Est GFR (CKD-EPI 2020) (mL/min/1.73m2) Glucose (74-106) mg/dL Calcium (8.5-10.1) mg/dL Total Bilirubin (0.2-1.0) mg/dL AST (15-37) U/L ALT (16-63) U/L Alkaline Phosphatase (46-116) U/L Troponin I (<or=76) ng/L Cancelled NT-Pro-B Natriuret Pep (<300) pg/mL Total Protein (6.4-8.2) g/dL Albumin (3.4-5.0) g/dL TSH (0.36-3.74) uIU/mL Add-On Test Request Medical Decision Making Results: Chest x-ray without acute abnormality per radiology interpretation my review, initial troponin 13, BNP 300 CBC and CMP stable for patient TSH within normal limits mag within normal limits Assessment and plan: Patient presenting in A-fib with RVR: Given 25 mg of diltiazem and 25 mg of p.o. metoprolol approximately 10 minutes later patient was in a rate controlled atrial fibrillation and his pain resolved. I repeated his EKG and he mentioned to the tech that this was all unnecessary and he wanted to avoid any additional costs because I cannot afford them . I entered the room and spoke with the patient he states that he is feeling better. I did relay that I ordered a CT chest abdomen and pelvis given his level of pain and comorbidities including that of chronic anticoagulation and repeat troponin level and suggested that we would likely admit patient, however he states he has no interest in staying in the hospital and cannot afford to stay or pay for the additional testing. I specifically asked patient what type of insurance he had and he did say that he had Medicaid. I told him that his visit would likely be covered but I could not confirm this. We did review that his pain was concerning for cardiac equivalent. Patient again states that he feels improved and I asked if he be willing to stay for at least 1 additional troponin and he states he prefer to be discharged at this time. Although his EKG did not show obvious ischemia or injury. Patient was written for discharge home, he is aware that would like him to stay for some additional testing and admission he is fully alert, oriented, and of decisional capacity throughout this encounter. He is encouraged to follow-up with his primary care physician for reassessment and to return immediately to the emergency department should he have recurrence of pain or worsening symptoms. Quality:SDOH Health Related Social Needs: Health related social needs risk of homeless Health related social needs details n/a PFSH All Active Problems (Updated 05/02/25 @ 00:02 by JAILENE RICHARDSON) Atrial flutter with rapid ventricular response (Acute) Back pain (Acute) Atrial fibrillation and flutter (Acute) Ventral hernia without obstruction or gangrene (Acute) Irregular heartbeat (Acute) Dog bite of hand (Acute) Chest pain (Acute) COPD (chronic obstructive pulmonary disease) (Chronic) Tooth abscess (Acute) Leg edema (Chronic) Cigarette smoker (Chronic) Atrial fibrillation (Chronic) Hypomagnesemia (Chronic) HTN (hypertension) (Chronic) Hypertriglyceridemia (Chronic) GERD (gastroesophageal reflux disease) (Chronic) Prediabetes (Acute) Degenerative disc disease, lumbar (Acute) Atrial flutter (Acute) Medical History Benign neoplasm of colon, unspecified Ulnar neuropathy Blepharitis History of hypokalemia Blepharitis of eyelid of left eye Sleep apnea Hx of adenomatous colonic polyps Obesity Alcohol abuse, in remission pt. states he still smokes Surgical History Hx of cardiac catheterization pt. unsure but states they went up through his leg vein to look at his heart Hx of inguinal hernia repair Hx of colonoscopy Social History Smoking/Tobacco Use Status: Current every day Tobacco Type: cigarettes Smoking packs per day: 2 Smoking cigarettes per day: 40.0 Smoking risk assessment performed?: Yes Alcohol Intake: current Alcohol Intake frequency: 3 or more drinks per day Alcohol type: beer Details: Reports 10 drinks per day Drug use: Never Substance use type: does not use Details: alcohol: t-3, 9 beers Housing: apartment Do you feel safe at home: Yes Additional Social history: lives alone, unable to assess privately PAWSS Have you Been Recently Intoxicated or Drunk Within the Last 30 days?: Yes Have you Ever Experienced Previous Episodes of Alcohol Withdrawal?: No Have you ever Experienced Withdrawal Seizures?: No Have you ever Experienced Delirium Tremens(DT)s?: No Have you ever undergone Alcohol Rehabilitation Treatment (i.e, inpt ot outpatient treatment programs)?: No Have you ever Experienced Blackouts?: No Have you ever Combined Alcohol with other Downers within the last 90 days?: No Have you ever Combined Alcohol with any other Substance of Abuse during the last 90 days?: No Positive Blood Alcohol level on Presentation? [PCS.BAL]: No Evidence of Increased Autonomic Activity (i.e. HR>120, tremor, sweating, agitation, nausea)?: No Result: 1
== END 2025-04-30 16:02 | disposition home or self-care (01) ==
PROVIDERS: Emergency Provider Physician Assistant; PCP Student in an Organized Health Care Education/Training Program
DX: I48.91 Unspecified atrial fibrillation (principal); I48.92 Unspecified atrial flutter; M54.9 Dorsalgia, unspecified; R06.02 Shortness of breath
CPT/HCPCS: 99285; 99284; 96374; 80053; 87040; 93005; 71045; 83605; 83880; 84443; 84484; 85025; 93010

== ENCOUNTER 2025-04-30 16:45 | Observation (INO) | payer MEDICARE, MEDICAID, SELFPAY ==
[2025-04-30] VITALS (37 sets, daily range): BP systolic 118–182; BP diastolic 64–138; PULSE 44–122; RESP 15–28; TEMP 36.5–36.6; O2SAT 91–97
--- NOTE | 2025-04-30 16:45 | RT.EKG_ITS ---
APPROVED REPORT Exam: Resting ECG Reason for Exam: SOB Patient Location: E HR:104 bpm ECG Measurements Heart Rate [address] [id number] P [id number] QRSd 103 QRS 96 QT 372 T 65 QTc 475 Conclusion Atrial flutter, V-rate 104 No interval abnormalities No STEMI No significant changes from priors other than slightly reduced rate.
--- NOTE | 2025-04-30 17:45 | DI.CT_ITS ---
Exam(s) CT THORAX ABD/PEL CTA EXAM: CT THORAX ABD/PEL CTA CLINICAL HISTORY: Back pain, A-flutter, eval dissection. TECHNIQUE: Imaging Protocol: Axial computed tomography images with coronal and sagittal reformatted images were created and reviewed CONTRAST MATERIAL: Intravenous: Omnipaque 350 Contrast volume:100 ml Oral: None COMPARISON: CT CT CHEST LUNG CANCER SCREEN from 11/25/2024 FINDINGS: CHEST: AORTA: The diameter of the ascending thoracic aorta is 3.4 cm within normal limits. there is no evidence of dissection. there is some calcified plaque in the aortic arch and aortic arch exhibits upper normal diameter. the descending thoracic aorta exhibits upper normal diameter but exhibits some ectasia and atherosclerotic involvement behind the heart. The abdominal aorta is significantly atherosclerotic. There is ulcerated plaque on the posterior wall of the upper abdominal aorta opposite the celiac artery takeoff point. Also abundant mural plaque lower down and there is an infrarenal abdominal aortic fusiform aneurysm with maximum diameter 3.7 cm. There is no high-grade stenosis at the aortic bifurcation. Calcified plaque noted in both common iliac arteries but without significant stenosis in these vessels nor their junctions with the external iliac arteries. 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 The left common femoral artery measures 1.1 cm. There is significant stenosis noted at the origin of the left SFA. LUNGS: No infiltrates nor pleural effusions. No masses.. MEDIASTINUM: There is no hilar nor mediastinal adenopathy. Small nodules noted in both thyroid lobes. Thyroid size is normal. CARDIAC: Heart size is upper normal. There is no pericardial effusion. Coronary artery calcifications noted. ABDOMEN: There is no evidence of abdominal aortic aneurysm nor dissection.There is no aneurysmal dilatation of the common iliac arteries.The celiac and superior mesenteric arteries are patent. There is no ascites. LIVER: There are no focal hepatic lesions nor dilatation of intrahepatic ducts. GALLBLADDER/BILIARY: No obvious gallbladder pathology. CBD is not dilated. PANCREAS: No evidence of pancreatic mass nor dilatation of the pancreatic duct. SPLEEN: Spleen is not enlarged. There are no intrasplenic lesions. Splenic and portal veins are patent. ADRENALS: There are no significant adrenal masses. KIDNEYS: There is a benign cyst in the posterior cortex of the left kidney which measures 1.7 x 1.5 cm. This does not require further workup. No calculi nor hydronephrosis. No solid renal masses. ABDOMINAL AORTA: See above LYMPH NODES: There is no retroperitoneal nor para-aortic adenopathy. No obvious mesenteric masses. ABDOMINAL WALL: There is a fat containing right umbilical hernia. Does not contain bowel loops. GI: There is no evidence of bowel obstruction, free air, nor abscess. PELVIS: LYMPH NODES: There is no intrapelvic nor inguinal adenopathy. GI: No evidence of appendicitis.Redundant sigmoid. There is sigmoid diverticuli as well as diverticuli in left side of the colon distal to the splenic flexure. However, there is no evidence of acute diverticulitis. URINARY BLADDER: No calculi nor masses evident REPRODUCTIVE: Prostate upper normal size. Contains calcifications. Seminal vesicles unremarkable. OSSEOUS: No significant osseous lesions. Multilevel degenerative disc disease. No listhesis. IMPRESSION: 1. No evidence of thoracic aortic aneurysm nor aortic dissection. 2. The abdominal aorta is quite atherosclerotic, including ulcerated plaque on the posterior wall of the proximal abdominal aorta opposite the celiac artery takeoff point. There is also an infrarenal abdominal aortic aneurysm with maximum diameter 3.7 cm. There is no significant aneurysmal dilatation of the iliac arteries although there is mild aneurysmal dilatation of the right common femoral artery which exhibits diameter 1.8 cm. Left common femoral artery exhibits normal diameter. There is, however, a significant stenosis of the proximal left SFA artery noted on the left side included in the lower most aspect of the field of view of this study. 3. Sigmoid diverticulosis without evidence of acute diverticulitis. Preliminary virtual Radiology report was reviewed. RADIATION DOSE DELIVERED: 1,463.75mGy.cm Total DLP DATA REPOSITORY: All CT scans at this facility are submitted to the National Radiology Data Registry (NRDR) Dose Index Registry (DIR) with the [employer] (ACR). RADIATION OPTIMIZATION: All CT scans at this facility use at least one of these dose optimization techniques: automated exposure control; mA and/or kV adjustment per patient size (includes targeted exams where dose is matched to clinical indication); or iterative reconstruction.
--- NOTE | 2025-04-30 18:02 | W.ED.GENAD ---
Discharge Plan Disposition Patient Disposition: Admit to [facility] Condition: Stable Discharge Details Clinical Impression: Atrial flutter with rapid ventricular response, COPD (chronic obstructive pulmonary disease), Back pain Primary Care Provider: Seng Muniz ED Provider: Robyn You Home Meds and New Rx's Prescriptions: No Action spironolactone 25 mg tablet 25 mg PO DAILY atorvastatin 20 mg tablet 20 mg PO QHS furosemide 40 mg tablet 40 mg PO DAILY metoprolol succinate 50 mg tablet extended release 24 hr 50 mg PO DAILY magnesium oxide 400 mg magnesium tablet 400 mg PO BID Xarelto 20 mg tablet See Rx Instructions .ROUTE .COMPLEX Qty: 90 3RF Dose Instruction: TAKE ONE TABLET BY MOUTH EVERY DAY Rx Instructions: TAKE ONE TABLET BY MOUTH EVERY DAY icosapent ethyl [Vascepa] 1 gram capsule 2 g PO BID Breztri Aerosphere 160-9-4.8 mcg/actuation HFA aerosol inhaler 2 inh inhalation BID icosapent ethyl [Vascepa] 1 gram capsule 2 g PO BID omeprazole 20 MG capsule,delayed release(DR/EC) 20 mg PO DAILY albuterol sulfate [ProAir HFA] 200 PUFF HFA aerosol inhaler 2 puff Inhalation Q4H PRN PRN ipratropium-albuterol 0.5 mg-3 mg(2.5 mg base)/3 mL solution for nebulization 3 ml inhalation Q4H PRN (Reason: shortness) Qty: 30 0RF HPI General Mode of arrival: ambulatory. Date/Time Provider Initiated Documentation: 04/30/25 16:46. Limitations to Documentation: no limitations. Information obtained by: patient and old records reviewed. HPI Narrative: This is a 69-year-old male patient with a past medical history significant for paroxysmal atrial fibrillation/flutter on rivaroxaban, history of COPD, hypertension, prediabetes, and hypertriglyceridemia who is presenting for reevaluation of shortness of breath and back pain. The patient was seen in our emergency department just a few hours ago with similar symptoms, was found to be in atrial flutter with RVR, received oral beta-blockers with control of his rate and resolution of his symptoms. He was recommended to get CT imaging of his aorta and lungs, and to have serial troponins, and left our facility without these interventions. He states that he returned home and immediately had recurrence of his symptoms, prompting his return to care. He states that his shortness of breath has worsened and he was not able to make the climb up to his third story home. States that he noticed that his back pain returned, located at the mid back along the left side, not worse with palpation, nonradiating. He is not experiencing chest pain, states that he does not have any sensation of palpitations or fluttering in his chest. The back pain started last night. Related Data Home Medications ?Medication ?Instructions ?Recorded ?Confirmed albuterol sulfate 90 mcg/actuation 2 puff inhalation Q4H PRN PRN 08/25/15 04/30/25 aerosol inhaler (ProAir HFA) omeprazole 20 mg capsule,delayed 20 mg PO DAILY 08/25/15 04/30/25 release atorvastatin 20 mg tablet 20 mg PO QHS 03/28/23 04/30/25 furosemide 40 mg tablet 40 mg PO DAILY 03/28/23 04/30/25 metoprolol succinate 50 mg 50 mg PO DAILY 03/28/23 04/30/25 tablet,extended release 24 hr spironolactone 25 mg tablet 25 mg PO DAILY 03/28/23 04/30/25 magnesium oxide 400 mg PO BID 11/07/24 04/30/25 rivaroxaban 20 mg tablet (Xarelto) See Rx Instructions .Route 11/26/24 04/30/25 .COMPLEX #90 tabs ipratropium 0.5 mg-albuterol 3 mg 3 ml inhalation Q4H PRN shortness 01/22/25 04/30/25 (2.5 mg base)/3 mL nebulization #30 mL soln budesonide 160 mcg-glycopyr 9 2 inh inhalation BID 02/21/25 04/30/25 mcg-formot 4.8 mcg/actuation HFA inhaler (Breztri Aerosphere) icosapent ethyl 1 gram capsule 2 g PO BID 02/21/25 04/30/25 (Vascepa) icosapent ethyl 1 gram capsule 2 g PO BID 03/04/25 04/30/25 (Vascepa) Previous Rx's ?Medication ?Instructions ?Recorded rivaroxaban 20 mg tablet (Xarelto) See Rx Instructions .Route 11/26/24 .COMPLEX #90 tabs ipratropium 0.5 mg-albuterol 3 mg 3 ml inhalation Q4H PRN shortness 01/22/25 (2.5 mg base)/3 mL nebulization #30 mL soln Allergies Allergy/AdvReac Type Severity Reaction Status Date / Time Sulfa (Sulfonamide Allergy Intermediate Skin Rash Verified 04/30/25 16:57 Antibiotics) ciprofloxacin Allergy Itching Verified 04/30/25 16:57 lisinopril AdvReac Mild cough Verified 04/30/25 16:57 mold AdvReac Other (See Uncoded 04/30/25 16:57 Comment) General Stated Complaint: SOB ERICKA: 3 Exam Narrative Exam Narrative: Gen: Awake and alert, in no apparent distress HEENT: Non-icteric sclera Neck: Supple Lungs: The patient appears to be in moderate respiratory distress though he is oxygenating appropriately on room air, lung sounds clear and equal bilaterally though slightly diminished, no wheezing, rhonchi, rales. CV: Appears well perfused, heart with irregularly irregular rhythm, controlled ventricular response rate, strong distal pulses and no murmurs auscultated Abdomen: Non-distended MSK: Moves 4 extremities without apparent limitation in ROM. The patient's back has no overlying skin changes, no tenderness to palpation along the thoracic spine or posterior ribs Skin: Visualized skin without rashes, cyanosis. Neuro: Normal Gait, no obvious focal deficits or facial asymmetry. Speaks in full, clear sentences. No peripheral edema Psych: Appropriate for situation. Course Vital Signs Vital signs: Vital Signs Temperature 36.6 C 04/30/25 16:50 Pulse 72 04/30/25 16:50 Respiratory Rate 22 04/30/25 16:50 Blood Pressure 148/78 H 04/30/25 16:50 Pulse Oximetry 92 04/30/25 16:50 Temperature 36.6 C 04/30/25 16:50 Pulse 72 04/30/25 16:50 Respiratory Rate 22 04/30/25 16:50 Blood Pressure 148/78 H 04/30/25 16:50 Pulse Oximetry 92 04/30/25 16:50 Oxygen Delivery Method Room Air 04/30/25 16:50 Oxygen Flow Rate 0 04/30/25 16:50 Medical Decision Making This is a 69-year-old male patient presenting for evaluation of back pain and shortness of breath. My differential includes but is not limited to ACS including STEMI, NSTEMI, unstable angina, certainly considered arrhythmia, pericarditis/myocarditis, aortic pathology such as dissection. Considered pulmonary abnormalities including pneumonia, bronchitis, pleural effusion, pulmonary edema, reactive airway disease, pneumothorax. The patient is anticoagulated, and without hypoxia, which is quite reassuring against pulmonary embolism. No GI symptoms or vomiting to suggest Boerhaave's, esophagitis, peptic ulcer disease, pancreatitis. Considered musculoskeletal pathologies including costochondritis, chest wall pain. No rash to suggest zoster. I obtained and reviewed an EKG, which shows an atrial flutter with a ventricular response rate of 104, on telemetry he is now down into the 80s. I note no evidence for STEMI and compared to priors the ventricular response rate has decreased. I will obtain serial troponins, I reviewed his imaging obtained earlier this afternoon which showed no leukocytosis, anemia, metabolic or electrolyte derangements, kidney injury, or elevation in BNP. I will obtain a CT angio chest, abdomen, and pelvis to evaluate for aortic pathology. I will provide the patient with a dose of Tylenol, as well as nitroglycerin. If effective in managing his pain we will continue, if not we will add morphine for pain management. - Nitro with no effect on the patient's pain, morphine did help slightly. Repeat troponin is not elevated or significantly changed from prior. The patient's CTA was evaluated by myself, showing no evidence of aortic dissection. He does have a 3 cm aneurysm in the abdominal region, no pulmonary abnormalities to explain the patient's back pain. The patient remains with an elevated ventricular response rate especially when he tries to exert himself such as walking to the bathroom. I consulted cardiology to discuss the patient's case. They recommend rate control, and admission for telemetry, oral metoprolol to tartrate 12.5, every 6, and discharged on metoprolol succinate. The patient was admitted to the hospitalist service without incident, remained hemodynamically improved though with ongoing tachycardia throughout his time under my care. His respiratory status is at his baseline per patient report. I offered him nebulizer treatments, states that he is not experiencing any significant shortness of breath, and remains without wheezing or hypoxia. Transferred to the hospitalist team without incident. Robyn You MD [facility] All Active Problems (Updated 04/30/25 @ 22:36 by Robyn You MD) Atrial flutter with rapid ventricular response (Acute) Back pain (Acute) Atrial fibrillation and flutter (Acute) Ventral hernia without obstruction or gangrene (Acute) Irregular heartbeat (Acute) Dog bite of hand (Acute) Chest pain (Acute) COPD (chronic obstructive pulmonary disease) (Chronic) Tooth abscess (Acute) Leg edema (Chronic) Cigarette smoker (Chronic) Atrial fibrillation (Chronic) Hypomagnesemia (Chronic) HTN (hypertension) (Chronic) Hypertriglyceridemia (Chronic) GERD (gastroesophageal reflux disease) (Chronic) Prediabetes (Acute) Degenerative disc disease, lumbar (Acute) Atrial flutter (Acute) Medical History Benign neoplasm of colon, unspecified Ulnar neuropathy Blepharitis History of hypokalemia Blepharitis of eyelid of left eye Sleep apnea Hx of adenomatous colonic polyps Obesity Alcohol abuse, in remission pt. states he still smokes Surgical History Hx of cardiac catheterization pt. unsure but states they went up through his leg vein to look at his heart Hx of inguinal hernia repair Hx of colonoscopy Social History Smoking/Tobacco Use Status: Current every day Tobacco Type: cigarettes Smoking packs per day: 2 Smoking cigarettes per day: 40.0 Smoking risk assessment performed?: Yes Alcohol Intake: current Alcohol Intake frequency: 3 or more drinks per day Alcohol type: beer Details: Reports 10 drinks per day Drug use: Never Substance use type: does not use Details: alcohol: t-3, 9 beers Housing: apartment Do you feel safe at home: Yes Additional Social history: lives alone, unable to assess privately
[2025-04-30] MEDS: Acetaminophen 500 MG TAB 1000 MG PO (18:36)
[2025-04-30] MEDS: nitroGLYcerin 0.4 MG TAB SL (18:36)
[2025-04-30 18:51] LABS: Troponin I 15 ng/L (<or=76)
[2025-04-30] MEDS: MORPHine 4 MG/ML SYR IVP ×2 (19:02→20:20)
[2025-04-30] MEDS: Normal Saline - Diluent 50 ML VIAL IJ (19:15)
[2025-04-30] MEDS: Omnipaque 350 MG/ML 100 ML BTL IJ (19:16)
[2025-04-30] MEDS: Normal Saline Flush 10 ML SYR IVP ×2 (19:17→23:46)
--- NOTE | 2025-04-30 20:29 | DI.VRAD_ITS ---
PROCEDURE INFORMATION: Exam: CTA Chest With Contrast CTA Abdomen and Pelvis With Contrast Exam date and time: 04/30/2025 7:10 PM Age: 69 years old Clinical indication: Other: Back pain, a-flutter, eval dissection TECHNIQUE: Imaging protocol: Computed tomographic angiography of the chest with contrast. Exam focused on the arteries. Computed tomographic angiography of the abdomen and pelvis with contrast. Exam focused on the arteries. 3D rendering (Not supervised by radiologist): MIP and/or 3D reconstructed images were created by the technologist. Total images: 2481 Contrast material: OMNIPAQUE 350; Contrast volume: 100 ml; Contrast route: INTRAVENOUS (IV); COMPARISON: CT CHEST LUNG CANCER SCREEN 05/04/2023 2:19 PM FINDINGS: VASCULATURE: Pulmonary arteries: No filling defect pulmonary arterial tree. Aorta: Aortic atherosclerotic change without dissection. Infrarenal abdominal aortic aneurysm 3 cm in diameter. Celiac and mesenteric arteries: Mild stenosis celiac trunk. Mild stenosis SMA origin. Patent MAGDALENO. Renal arteries: Mild left renal artery stenosis. Right iliac arteries: Mild stenosis right common iliac artery. Right femoral/popliteal arteries: 1.8 cm aneurysm right common femoral artery. Left iliac arteries: Mild stenosis left common iliac artery. CHEST: Lungs: Centrilobular and apical paraseptal emphysema. No consolidation. Pleural spaces: Unremarkable. No pneumothorax. No pleural effusion. Heart: Unremarkable. No cardiomegaly. No pericardial effusion. Coronary arteries: Moderate coronary calcification. ABDOMEN AND PELVIS: Liver: No mass. Gallbladder and biliary ducts: Unremarkable. No calcified stones. No ductal dilation. Pancreas: Unremarkable. No mass. No ductal dilation. Spleen: Unremarkable. No splenomegaly. Adrenal glands: Unremarkable. No mass. Kidneys and ureters: Unremarkable. No solid mass. No hydronephrosis. Stomach and bowel: Unremarkable. No obstruction. No mucosal thickening. Appendix: No evidence of appendicitis. Intraperitoneal space: No free intraperitoneal air. Urinary bladder: Unremarkable. No mass. Reproductive: Unremarkable as visualized. Lymph nodes: Unremarkable. No enlarged lymph nodes. Bones/joints: Unremarkable. No acute fracture. Soft tissues: Mild gynecomastia. IMPRESSION: 1. No aortic dissection. 2. 3 cm abdominal aortic aneurysm. 3. No acute intrathoracic or intra-abdominal finding. Dictated and Authenticated by: Hua Villalobos MD. Orderin [facility] Lloyd Carlson MD
[2025-04-30 20:41] LABS: Troponin I 16 ng/L (<or=76)
--- NOTE | 2025-04-30 21:54 | W.PM.HP.N ---
Date of service: 04/30/25 Time of Service: 21:54 Assessment and Plan Assessment and plan (1) Atrial fibrillation and flutter: Start date: 04/30/25 Status: Acute Assessment and plan: This is a 69-year-old gentleman with chronic lung disease and still smoking who presents with back pain and increased shortness of breath but no palpitations though he was having rapid ventricular response of atrial flutter. He appears to have paroxysmal atrial flutter and fibrillation and is on Xarelto chronically. He is on metoprolol 50 mg daily and did respond to an increase dose of oral metoprolol in the ED. Will continue to advance his oral metoprolol and titrate to 100 mg twice daily per split dosing 25 mg 4 times a day. Cardiac monitoring with observation and to trend labs and symptoms. He does have KIET and will be treated with his CPAP measurements from home. He is chronically dyspneic with minimal exertion at home and states that he cannot walk across a large room but also told the ED physician that he not able to get up to his third floor which is difficult. He needs to stop smoking. Does not appear to be having any ischemic heart event with negative troponins. His inhaler will be continued with oxygen as needed. He is a full code. (2) COPD (chronic obstructive pulmonary disease): Status: Chronic Assessment and plan: Continue outpatient medical therapy with no steroids at this time. He appears to have worsening shortness of breath with his heart rhythm change. Chronically he needs to stop smoking and lose weight with KIET. (3) Sleep apnea: Assessment and plan: Continue CPAP with home settings. Long-term patient should stop smoking and lose weight. History of Present Illness History of Present Illness Chief Complaint: Back pain with palpitations and shortness of breath. Narrative: This is a 69-year-old male patient who has known paroxysmal atrial flutter/fibrillation who presented to the ED with sudden onset of back pain with worsening baseline shortness of breath tonight prior to presentation. He does continue to smoke cigarettes and is on inhalers for chronic severe respiratory problems. He has not had a cough or fever. In the ED he was found to be in rapid ventricular spots with atrial flutter which responded to oral metoprolol. The patient initially signed out AGAINST MEDICAL ADVICE since he felt better with rate control but returned within hours with similar symptoms of back pain and shortness of breath with recurring fast heart rate. He did finish completion of his workup which was advised with CTA and trending labs such as troponins. He was not having chest pain or palpitations. Presently his heart rate is controlled under 100 with metoprolol given but [facility] advised observation overnight with increased dose of metoprolol and cardiac monitoring to ensure rate control. He troponins were negative and will not be further trended. CTA of the chest, abdomen and pelvis did not reveal dissecting aorta but was not done with PE protocol with no large emboli seen. He is on Xarelto chronically. The patient was most complained of his back pain over the left side and has had chronic back pain in the past. He is not on chronic narcotic therapy by review of his PDMP. He was given morphine for his shortness of breath and back pain and this did help. This will be continued for comfort while observing overnight for his heart rate control. The patient is a full code. Review of Systems Narrative: 13 point review of systems otherwise unrevealing or stable. He has not had any weight gain or new peripheral swelling. He is chronically on diuretics. [facility] All Active Problems (Updated 05/01/25 @ 08:50 by Barry Stone) Atrial flutter with rapid ventricular response (Acute) Back pain (Acute) Atrial fibrillation and flutter (Acute) Ventral hernia without obstruction or gangrene (Acute) Irregular heartbeat (Acute) Dog bite of hand (Acute) Chest pain (Acute) COPD (chronic obstructive pulmonary disease) (Chronic) Tooth abscess (Acute) Leg edema (Chronic) Cigarette smoker (Chronic) Atrial fibrillation (Chronic) Hypomagnesemia (Chronic) HTN (hypertension) (Chronic) Hypertriglyceridemia (Chronic) GERD (gastroesophageal reflux disease) (Chronic) Prediabetes (Acute) Degenerative disc disease, lumbar (Acute) Atrial flutter (Acute) Medical History Benign neoplasm of colon, unspecified Ulnar neuropathy Blepharitis History of hypokalemia Blepharitis of eyelid of left eye Sleep apnea Hx of adenomatous colonic polyps Obesity Alcohol abuse, in remission pt. states he still smokes Surgical History Hx of cardiac catheterization pt. unsure but states they went up through his leg vein to look at his heart Hx of inguinal hernia repair Hx of colonoscopy Social History Smoking/Tobacco Use Status: Current every day Tobacco Type: cigarettes Smoking packs per day: 2 Smoking cigarettes per day: 40.0 Smoking risk assessment performed?: Yes Alcohol Intake: current Alcohol Intake frequency: 3 or more drinks per day Alcohol type: beer Details: Reports 10 drinks per day Drug use: Never Substance use type: does not use Details: alcohol: t-3, 9 beers Housing: apartment Do you feel safe at home: Yes Additional Social history: lives alone, unable to assess privately Meds Allergies and Home Medications Allergies Allergy/AdvReac Type Severity Reaction Status Date / Time Sulfa (Sulfonamide Allergy Intermediate Skin Rash Verified 04/30/25 16:57 Antibiotics) ciprofloxacin Allergy Itching Verified 04/30/25 16:57 lisinopril AdvReac Mild cough Verified 04/30/25 16:57 mold AdvReac Other (See Uncoded 04/30/25 16:57 Comment) Home Medications ?Medication ?Instructions ?Recorded ?Confirmed ?Type albuterol sulfate 90 mcg/actuation 2 puff inhalation Q4H PRN PRN 08/25/15 04/30/25 History aerosol inhaler (ProAir HFA) omeprazole 20 mg capsule,delayed 20 mg PO DAILY 08/25/15 04/30/25 History release atorvastatin 20 mg tablet 20 mg PO QHS 03/28/23 04/30/25 History furosemide 40 mg tablet 40 mg PO DAILY 03/28/23 04/30/25 History metoprolol succinate 50 mg 50 mg PO DAILY 03/28/23 04/30/25 History tablet,extended release 24 hr spironolactone 25 mg tablet 25 mg PO DAILY 03/28/23 04/30/25 History magnesium oxide 400 mg PO BID 11/07/24 04/30/25 History rivaroxaban 20 mg tablet (Xarelto) See Rx Instructions .Route 11/26/24 04/30/25 Rx .COMPLEX #90 tabs ipratropium 0.5 mg-albuterol 3 mg 3 ml inhalation Q4H PRN shortness 01/22/25 04/30/25 Rx (2.5 mg base)/3 mL nebulization #30 mL soln budesonide 160 mcg-glycopyr 9 2 inh inhalation BID 02/21/25 04/30/25 History mcg-formot 4.8 mcg/actuation HFA inhaler ([employer]) icosapent ethyl 1 gram capsule 2 g PO BID 02/21/25 04/30/25 History (Vascepa) icosapent ethyl 1 gram capsule 2 g PO BID 03/04/25 04/30/25 History (Vascepa) Exam Narrative Exam Narrative: General: Patient appears older than stated age, he is morbidly obese with a blue hue to his face such as with a blue bloater. He is easily agitated and short tempered. He is alert and oriented x 3. He is in moderate distress from his agitation and complaining of back pain. HEENT: Normocephalic, eyes with pupils equal and react to light symmetrically, extraocular movement tact and sclera anicteric. Patient has coarsened features with a blue hue over his cheeks. Oropharynx with moist mucosa and fair dentition. Neck: Supple without JVD. Back: Stooped posture without CVA tenderness. Tender to palpation of the left lumbar area without focalizing tenderness. Increased tone of the paraspinal muscles in the same area. Negative straight leg test. Lungs: Bronchovesicular sounds diffusely with no focalizing rales or rhonchi. No expiratory wheeze. Patient is tachypneic at rest. Heart: Irregular rhythm with tachycardic rate intermittently. No appreciable murmur or gallop but distant heart sounds. Abdomen: Morbidly obese with ventral hernia which is not reducible but only present when he strains with sitting up. Abdomen is nontender to palpation but no guarding or rebound. No palpable hepatosplenomegaly with difficult exam because of large pannus. Bowel sounds are positive in all quadrants. Genitalia/rectal: Exam deferred. Extremities: 3+ nonpitting edema over the feet with 2+ nonpitting edema over the ankles which appears chronic. Chronic skin changes over the legs with loss of hair and slight atrophy. No ulcers. No clubbing or cyanosis. Good capillary refill. Skin: Chronic skin changes over legs and discoloration of the face as described, otherwise normal color, warm and dry. Neuro: Cranial nerves II through XII gross intact, no focalized motor deficits and no tremor. Psych: Anxious affect with depressed mood and easily agitated. No abnormal thought processes. Remote and recent memory grossly intact. Results Imaging Imaging Studies: EXAM: XR PORTABLE CHEST AP Exam date: 04/30/2025 CLINICAL HISTORY: shortness of breath TECHNIQUE: 2D digital imaging was performed. COMPARISON: No exams were available for comparison FINDINGS: Moderate ring leads overlie the chest LUNGS: Clear. No pleural abnormality seen however lung bases are partially obscured.. HEART: Normal size. AORTA: Normal diameter. BONES: Unremarkable for age. Soft tissues: Unremarkable. IMPRESSION: The left lung base is poorly visualized. Infiltrate cannot be excluded. Exam: CTA Chest With Contrast CTA Abdomen and Pelvis With Contrast Exam date and time: 04/30/2025 7:10 PM Age: 69 years old Clinical indication: Other: Back pain, a-flutter, eval dissection COMPARISON: CT CHEST LUNG CANCER SCREEN 05/04/2023 2:19 PM FINDINGS: VASCULATURE: Pulmonary arteries: No filling defect pulmonary arterial tree. Aorta: Aortic atherosclerotic change without dissection. Infrarenal abdominal aortic aneurysm 3 cm in diameter. Celiac and mesenteric arteries: Mild stenosis celiac trunk. Mild stenosis SMA origin. Patent MAGDALENO. Renal arteries: Mild left renal artery stenosis. Right iliac arteries: Mild stenosis right common iliac artery. Right femoral/popliteal arteries: 1.8 cm aneurysm right common femoral artery. Left iliac arteries: Mild stenosis left common iliac artery. CHEST: Lungs: Centrilobular and apical paraseptal emphysema. No consolidation. Pleural spaces: Unremarkable. No pneumothorax. No pleural effusion. Heart: Unremarkable. No cardiomegaly. No pericardial effusion. Coronary arteries: Moderate coronary calcification. ABDOMEN AND PELVIS: Liver: No mass. Gallbladder and biliary ducts: Unremarkable. No calcified stones. No ductal dilation. Pancreas: Unremarkable. No mass. No ductal dilation. Spleen: Unremarkable. No splenomegaly. Adrenal glands: Unremarkable. No mass. Kidneys and ureters: Unremarkable. No solid mass. No hydronephrosis. Stomach and bowel: Unremarkable. No obstruction. No mucosal thickening. Appendix: No evidence of appendicitis. Intraperitoneal space: No free intraperitoneal air. Urinary bladder: Unremarkable. No mass. Reproductive: Unremarkable as visualized. Lymph nodes: Unremarkable. No enlarged lymph nodes. Bones/joints: Unremarkable. No acute fracture. Soft tissues: Mild gynecomastia. IMPRESSION: 1. No aortic dissection. 2. 3 cm abdominal aortic aneurysm. 3. No acute intrathoracic or intra-abdominal finding Date of Exam: 01/08/25 EXAM: Comprehensive 2D, Doppler, and color-flow Echocardiogram Indications: Check LV function, atrial fibrillation Other Information Study Quality: Fair. Technically limited study due to body habitus. Conclusion Normal left ventricular wall thickness and chamber size. Ejection fraction is 60 to 65%. Wall motion is normal Normal right ventricular size and function Both atria are normal in size There is no structural or hemodynamically significant valvular disease Labs 05/01/25 06:35 05/01/25 06:35 Labs: Laboratory Results - last 24 hr 04/30/25 04/30/25 18:28 20:19 Troponin I 15 16 Last Vital Signs Temp 36.6 C 04/30/25 18:44 Pulse 72 04/30/25 18:44 Resp 28 H 04/30/25 19:42 BP 148/77 H 04/30/25 18:44 Pulse Ox 92 04/30/25 18:44 PAWSS Have you Been Recently Intoxicated or Drunk Within the Last 30 days?: Yes Have you Ever Experienced Previous Episodes of Alcohol Withdrawal?: No Have you ever Experienced Withdrawal Seizures?: No Have you ever Experienced Delirium Tremens(DT)s?: No Have you ever undergone Alcohol Rehabilitation Treatment (i.e, inpt ot outpatient treatment programs)?: No Have you ever Experienced Blackouts?: No Have you ever Combined Alcohol with other Downers within the last 90 days?: No Have you ever Combined Alcohol with any other Substance of Abuse during the last 90 days?: No Positive Blood Alcohol level on Presentation? [PCS.BAL]: No Evidence of Increased Autonomic Activity (i.e. HR>120, tremor, sweating, agitation, nausea)?: No Result: 1 Time Spent Time spent with Patient: >75 minutes Time was spent: preparing to see the patient(eg.review tests), obtaining and/or reviewing separately otained hiistory, ordering medications,tests, procedures, referring, communicating with other health career development coordinator, indepentently interpreting results, counseling the patient and care coordination
[2025-04-30 22:17] LABS: Troponin I 16 ng/L (<or=76)
--- NOTE | 2025-04-30 22:44 | W.PC.ACHO ---
Registration Status: REG ER Primary Language: Preferred Language: French ED Information & Data Chief Complaint SOB 04/30/25 21:41 Chief Complaint SOB 04/30/25 18:06 Triage Note Back pain with SOB, feels 04/30/25 16:50 like he did earlier when he was seen. Medical / Surgical History (Last Reviewed 04/30/25 @ 21:57 by Barry Stone) Benign neoplasm of colon, unspecified Ulnar neuropathy Blepharitis History of hypokalemia Blepharitis of eyelid of left eye Sleep apnea Hx of adenomatous colonic polyps Obesity Alcohol abuse, in remission (Last Reviewed 04/30/25 @ 21:57 by Barry Stone) Hx of cardiac catheterization Hx of inguinal hernia repair Hx of colonoscopy Most Recent Vital Signs Temperature 36.6 C 04/30/25 18:44 Temperature Source Oral 04/30/25 18:44 Pulse 72 04/30/25 18:44 Respiratory Rate 28 H 04/30/25 19:42 Respiratory Effort Short of Breath, Labored 04/30/25 19:42 Respiratory Depth Normal 04/30/25 19:42 Respiratory Pattern Normal 04/30/25 19:42 Blood Pressure 148/77 H 04/30/25 18:44 Blood Pressure Position Sitting 04/30/25 18:44 Pulse Oximetry 92 04/30/25 18:44 Oxygen Delivery Method Room Air 04/30/25 18:44 Oxygen Flow Rate 0 04/30/25 16:50 Pain Level 5 04/30/25 20:20 Allergies Sulfa (Sulfonamide Antibiotics) Allergy (Intermediate, Verified 04/30/25 16:57) Skin Rash ciprofloxacin Allergy (Verified 04/30/25 16:57) Itching lisinopril Adverse Reaction (Mild, Verified 04/30/25 16:57) cough mold Adverse Reaction (Uncoded 04/30/25 16:57) Other (See Comment) Pt. states breathing difficulities Active Medications Generic Name Dose Route Start Last Admin Trade Name Freq PRN Reason Stop Dose Admin Iohexol 100 ml 04/30/25 19:15 04/30/25 19:16 Omnipaque 350 Mg/Ml 100 Ml Btl IJ 05/30/25 23:59 100 ml DIRECTED MIGUEL Administration Nitroglycerin 0.4 mg 04/30/25 17:57 04/30/25 18:36 Nitroglycerin 0.4 Mg Tab SL 0.4 mg Q5 MIN PRN X3 PRN Administration Sodium Chloride 0 ml 04/30/25 19:13 04/30/25 19:17 Normal Saline Flush 10 Ml Syr IVP 10 ml PRN PRN Administration Sodium Chloride 50 ml 04/30/25 19:15 04/30/25 19:15 Normal Saline - Diluent 50 Ml Vial IJ 50 ml DIRECTED MIGUEL Administration IV IV Catheter Type [Right Saline Lock Forearm] IV Catheter Gauge [Right 18 Forearm] Diagnostics 04/30/25 04/30/25 04/30/25 Range/Units 22:14 21:50 20:19 VBG pH Pending VBG pCO2 Pending VBG pO2 Pending VBG HCO3 Pending VBG Total CO2 Pending VBG O2 Saturation Pending VBG Base Excess Pending Troponin I 16 16 (<or=76) ng/L COVID-19 Source Pending SARS-CoV-2 (PCR) Pending Influenza Type A (PCR) Pending Influenza Type B (PCR) Pending RSV (PCR) Pending 04/30/25 Range/Units 18:28 VBG pH VBG pCO2 VBG pO2 VBG HCO3 VBG Total CO2 VBG O2 Saturation VBG Base Excess Troponin I 15 (<or=76) ng/L COVID-19 Source SARS-CoV-2 (PCR) Influenza Type A (PCR) Influenza Type B (PCR) RSV (PCR) Intake and Output - 24 Hour Total 04/30/25 16:45 thru 04/30/25 16:50 Weight 102.512 kg Falls Risk Assessment History of Falls No History 04/30/25 21:53 Contributing Factors No Factors 04/30/25 21:53 Ambulatory Aids Independent 04/30/25 21:53 Tubes/Lines None 04/30/25 21:53 Gait Evaluation No gait disturbance 04/30/25 21:53 Cognition No cognitive impairment 04/30/25 21:53 Fall Total Score 0 04/30/25 21:53 Level of Risk Standard/Low Risk 04/30/25 21:53 Problems (Last Reviewed 04/30/25 @ 21:57 by Barry Stone) Atrial fibrillation and flutter (Acute) COPD (chronic obstructive pulmonary disease) (Chronic) v v v v v v v v v Sending and/or Receiving Nurses: Please use comment section below to note any information pertinent to the patient hand-off not included above. Information / Comments: Report taken from BEE ROBBER Noah. Patient is AO x 4.with chief complaints of back pain and found out w/ Afib RVR, given with tylenol, morphine and NTG. Has IID on right FA g. 18. Report received from:
[2025-04-30 23:17] LABS: BE (Venous) -1 mmol/L (-2-3); HCO3 (Venous) 25 mmol/L (23-28); O2 Sat (Venous) 81 %; TCO2 (Venous) 22 mmol/L (24-29); pCO2 (Venous) 47 mmHg (41-51); pO2 (Venous) 48 mmHg
[2025-04-30 23:28] LABS: INR 1.1 (0.9-1.1); Prothrombin Time 11.1 sec (9.1-11.1)
[2025-04-30 23:33] LABS: Magnesium 1.9 mg/dL (1.8-2.4)
[2025-04-30] MEDS: Normal Saline 1,000 ML 125 ML IV (23:45)
[2025-04-30] MEDS: Atorvastatin 20 MG TAB PO (23:56)
[2025-04-30] MEDS: Metoprolol 25 MG TAB PO (23:56)
[2025-05-01 00:25] VITALS: BP 138/89; PULSE 76; RESP 20; TEMP 36.5; O2SAT 96
[2025-05-01 00:51] LABS: COVID-19 PCR Negative (Negative); RSV PCR Negative (Negative)
[2025-05-01 01:21] LABS: Glucose Negative (Negative)
[2025-05-01 01:27] LABS: C & S Indicated? No; RBC Negative HPF (0-2); WBC Negative HPF (0-5)
[2025-05-01] MEDS: MORPHine 4 MG/ML SYR IVP (02:03)
[2025-05-01 02:05] VITALS: PULSE 114; RESP 22; O2SAT 93
[2025-05-01 02:47] VITALS: BP 148/70; PULSE 113; RESP 20; TEMP 36.4; O2SAT 93
[2025-05-01] MEDS: Metoprolol 25 MG TAB PO ×2 (05:40→11:11)
[2025-05-01 06:51] LABS: HCT 42.3 % (40.0-50.0); HGB 13.9 g/dL (13.5-17.5); MCH 31.1 pg (27.0-33.0); MCHC 32.9 % (32.0-36.0); MCV 95 fL (80-95); MPV 10.5 fL (8.0-11.0); Platelet Count 160 10^3/uL (130-400); RBC 4.47 10^6/uL (4.36-5.78); RDW 13.3 % (11.8-14.1); RDW-SD 45.8 fL; WBC 6.16 10^3/uL (4.4-10.8)
[2025-05-01 07:17] VITALS: BP 122/110; PULSE 102; RESP 16; TEMP 36; O2SAT 97
[2025-05-01 07:25] LABS: ALT 17 U/L (16-63); AST 18 U/L (15-37); Albumin 2.9 g/dL (3.4-5.0); Alkaline Phosphatase 84 U/L (46-116); Anion Gap 8.1 mmol/L (3-11); BUN 14 mg/dL (7-18); Bilirubin, Total 0.3 mg/dL (0.2-1.0); CO2 26.9 mmol/L (21.0-32.0); Calcium 8.5 mg/dL (8.5-10.1); Chloride 106 mmol/L (98-107); Estimated GFR 81.98 (mL/min/1.73m2); Glucose 107 mg/dL (74-106); Magnesium 2.0 mg/dL (1.8-2.4); Potassium 3.9 mmol/L (3.5-5.1); Sodium 141 mmol/L (136-145); Total Protein 6.3 g/dL (6.4-8.2)
[2025-05-01 08:32] VITALS: O2SAT 95
[2025-05-01] MEDS: Spironolactone 25 MG TAB PO (08:43)
[2025-05-01] MEDS: Rivaroxaban 10 MG TABLET 20 MG PO (08:43)
[2025-05-01] MEDS: Omeprazole 20 MG CAPCR PO (08:43)
[2025-05-01] MEDS: Magnesium Oxide 400 MG TAB PO (08:43)
[2025-05-01] MEDS: Normal Saline Flush 10 ML SYR IVP (08:43)
--- NOTE | 2025-05-01 09:52 | PDOC.CMIN ---
Date of service: 05/01/25 Time of Service: 09:52 Care Management Initial Assmt Initial Assessment Reason for Hospitalization: atrial flutter with rapid ventricular response Functional Status/Living Situation Patient Presentation: Noah was lying down and awake when CM met with him. He presented evaluation of shortness of breath and back pain; see ED documentation. Per report, ..... Noah is living in [facility] alone. He has four children who are local. Noah shares that at [facility] he has CPAP through [employer] and O2 through [employer] but has no other serivces at this time. Town of Residence: [place] Resides with: Alone Significant Other/Family: Local Employment Status: Employed ([employer]) Instrumental Activities of Daily Living (ADLs): Independent Medications Medication Management: No Issues/Barriers identified Advance Directives Advance Directives: Do you have an Advance Directive: Y 07/29/20, 10:17 AD On File at [facility]: N 08/26/13, 09:09 Date Asked 04/30/25 04/30/25, 13:54 AD Date Reviewed COLST On File at [facility] COLST Date Scanned Code Status Resuscitation Status Full Code Portal Pt does not currently have a portal and education provided: Yes Insurance Coverage/Financial Issues Insurance: Medicare Part A & B - [id number] Medicaid of [place] - [id number] Care Team Visit Care Team Role Provider Type Ricky Monteiro MD [facility] STAFF PHYSICIAN Seng Muniz Primary Care Provider [facility] STAFF PHYSICIAN Robyn You MD Emergency Provider [facility] STAFF PHYSICIAN Barry Stone Admit Provider NON-[facility] STAFF PHYSICIAN Attending Provider Discharge Potential Discharge Needs: PCP F/U Appt Anticipated Barriers to Discharge: None Identified Patient/Family Education Needs: Review discharge instructions, discuss Ask Me Three Transportation: Private vehicle Plan: Anticipate Noah will be discharged home once medically ready with no new services indicated. It is recommended that he follow up with his community providers and discharge plan of care. He will be transported via private vehicle. CM will continue to follow. Social Determinants of Health Screening Social Determinants of health last assessed in clinic: 04/30/25 Will the Patient Participate in the Screening?: Yes Do you worry about having a steady place to live?: yes What is your living situation today?: I have housing today, but am worried about losing it Problems where you live: no known problems In the past 12 months, have you had to go without electric, gas, oil or water in your home?: no Has lack of transportation kept you from medical appointments or from doing things needed for daily living?: no Has anyone in your life made you feel unsafe or unsupported?: no How hard is it for you to pay for the very basics like food, housing, medical care, and heating? Would you say it is:: Not hard at all Do you want help finding or keeping work or a job?: I do not need or want help If for any reason you need help with day-to-day activities such as bathing, preparing meals, shopping, managing finances, etc., do you get the help you need?: I don?t need any help How often do you feel lonely or isolated from those around you?: Never Do you speak a language other than Albanian at home?: No Does the patient want assistance with any of the above?: No Health Related Social Needs Health related social needs: housing instability, housed, with risk of homelessness (Z59.811) Health related social needs details: n/a PFSH All Active Problems (Updated 05/01/25 @ 08:50 by Barry Stone) Atrial flutter with rapid ventricular response (Acute) Back pain (Acute) Atrial fibrillation and flutter (Acute) Ventral hernia without obstruction or gangrene (Acute) Irregular heartbeat (Acute) Dog bite of hand (Acute) Chest pain (Acute) COPD (chronic obstructive pulmonary disease) (Chronic) Tooth abscess (Acute) Leg edema (Chronic) Cigarette smoker (Chronic) Atrial fibrillation (Chronic) Hypomagnesemia (Chronic) HTN (hypertension) (Chronic) Hypertriglyceridemia (Chronic) GERD (gastroesophageal reflux disease) (Chronic) Prediabetes (Acute) Degenerative disc disease, lumbar (Acute) Atrial flutter (Acute) Medical History Benign neoplasm of colon, unspecified Ulnar neuropathy Blepharitis History of hypokalemia Blepharitis of eyelid of left eye Sleep apnea Hx of adenomatous colonic polyps Obesity Alcohol abuse, in remission pt. states he still smokes Surgical History Hx of cardiac catheterization pt. unsure but states they went up through his leg vein to look at his heart Hx of inguinal hernia repair Hx of colonoscopy Social History Smoking/Tobacco Use Status: Current every day Tobacco Type: cigarettes Smoking packs per day: 2 Smoking cigarettes per day: 40.0 Smoking risk assessment performed?: Yes Alcohol Intake: current Alcohol Intake frequency: 3 or more drinks per day Alcohol type: beer Details: Reports 10 drinks per day Drug use: Never Substance use type: does not use Details: alcohol: t-3, 9 beers Housing: apartment Do you feel safe at home: Yes Additional Social history: lives alone, unable to assess privately Readmission Within the Past 30 Days Yes or No: No
[2025-05-01] MEDS: Albuterol HFA 8 GM 60 PUFF INH IH (10:50)
[2025-05-01 10:55] VITALS: BP 139/73; PULSE 62; RESP 16; TEMP 36; O2SAT 93
--- NOTE | 2025-05-01 11:28 | CMDISCH_ITS ---
Date of service: 05/01/25 Time of Service: 11:29 LACE Index Scoring Tool Questions: Length of Stay (in days): 1 Was the patient admitted via the E.D.?: Yes Comorbidities: Chronic Pulmonary Disease E.D. Visits: 3 Answers: Total Score: 9 Risk of Readmission: Low Risk Care Management Discharge Plan Reason for Hospitalization: atrial flutter with rapid ventricular response Discharge Plan: Noah will be discharged home today with no new services indicated. It is recommended that he follow up with his community providers and discharge plan of care. Anticipate palliative [facility] He will be transported via private vehicle. Patient/Family Education Needs: review of discharge instructions, activity, limitation, and plan of care. Discuss plan of care SDOH Health Related Social Needs: Health related social needs risk of homeless Health related social needs details n/a Health related social needs details: n/a Referrals and interventions: not applicable
--- NOTE | 2025-05-01 12:21 | W.PM.DS.N ---
Date of service: 05/01/25 Time of Service: 12:21 DS: Diagnosis Discharge Diagnosis (1) Atrial fibrillation and flutter: Status: Acute (2) COPD (chronic obstructive pulmonary disease): Status: Chronic (3) Sleep apnea: Discharge Plan Disposition Patient Disposition: Home Condition: Improving Discharge Details Reason For Visit: Atrial Flutter with Rapid Ventricular Response Admit Date/Time: 04/30/25 22:14 Admit Provider: Barry Stone Attending Provider: Barry Stone Primary Care Provider: Seng Muniz Hospital Course Hospital Course: This is a 69-year-old gentleman with COPD, smoking, KIET, BMI >40, and paroxysmal atrial fibrillation/flutter who presented with back pain and increased shortness of breath but no palpitations and was found to have rapid ventricular response of atrial flutter. He responded to increased metoprolol dosing and felt better by the next morning with resolution of his back pain. He had a recent echocardiogram done in December of 2024. He was discharged on 100mg metoprolol succinate, up from 50mg. He was not wheezing and not treated with steroids. CT C/A/P on admission did not show new lung findings, but did show 3.7cm AAA and some other arterial dilatations. Smoking cessation was emphasized. He was already on atoravastatin and rivaroxaban with his last LDL being 53. He will need follow up of his vascular disease. Follow up with PCP 1-2 weeks. Home Meds and New Rx's Prescriptions: New metoprolol succinate 100 mg tablet extended release 24 hr 100 mg PO DAILY Qty: 90 0RF Rx Instructions: increase dose Continued spironolactone 25 mg tablet 25 mg PO DAILY atorvastatin 20 mg tablet 20 mg PO QHS furosemide 40 mg tablet 40 mg PO DAILY magnesium oxide 400 mg magnesium tablet 400 mg PO BID Xarelto 20 mg tablet See Rx Instructions .ROUTE .COMPLEX Qty: 90 3RF Dose Instruction: TAKE ONE TABLET BY MOUTH EVERY DAY Rx Instructions: TAKE ONE TABLET BY MOUTH EVERY DAY icosapent ethyl [Vascepa] 1 gram capsule 2 g PO BID Breztri Aerosphere 160-9-4.8 mcg/actuation HFA aerosol inhaler 2 inh inhalation BID icosapent ethyl [Vascepa] 1 gram capsule 2 g PO BID omeprazole 20 MG capsule,delayed release(DR/EC) 20 mg PO DAILY albuterol sulfate [ProAir HFA] 200 PUFF HFA aerosol inhaler 2 puff Inhalation Q4H PRN PRN ipratropium-albuterol 0.5 mg-3 mg(2.5 mg base)/3 mL solution for nebulization 3 ml inhalation Q4H PRN (Reason: shortness) Qty: 30 0RF Discontinued metoprolol succinate 50 mg tablet extended release 24 hr 50 mg PO DAILY Discharge Instructions Instructions: Atrial Fibrillation (DC) Additional Instructions: take the increased dose of metoprolol. This will help slow down the heart rate and help it work better. continue working on stopping smoking and avoding alcohol. This will help your heart and lungs You have some aneurysms of your aorta and branches of your large arteries. The atorvastatin and blood thinner help treat this, but quitting smoking is also very important. You will need follow up imaging of these. Activity:: Activity as Tolerated Equipment/Supplies:: No Equipment Needed Diet:: Low Sodium Discharge Orders Discharge Orders: Discharge Order (Routine); Ordered 05/01/25 Ordered By: Ricky Monteiro DS: Summary Time Spent with Patient providing and/or coordinating discharge services: Greater than 30 minutes Status at Discharge Functional status at discharge: independent ambulation Overall status at discharge: patient is back to baseline Mental Status: mental status grossly normal Speech and Movement: speech and movement normal Mood: congruent mood Affect: normal affect Quality:SDOH Health Related Social Needs: Health related social needs risk of homeless Health related social needs details n/a Health related social needs details: n/a Referrals and interventions: not applicable Exam Narrative Exam Narrative: GEN: Alert and oriented, NAD Lungs: Clear stephanie, but with some prolonged expiration. No rales or wheeze CV: currently regular, rate in 70s abd: protuberant, but not tender Ext: 1-2+ edema in ankles stephanie (chornic per patient), no leg tenderness Psych Mental Status: mental status grossly normal Speech and Movement: speech and movement normal Mood: congruent mood Affect: normal affect DS: Data Vitals/I&O Vitals and I&O: Vital Signs Temperature 36.0 C L 05/01/25 10:55 Temperature Source Temporal Artery Scan 05/01/25 10:55 Pulse 62 05/01/25 10:55 Pulse Rhythm Irregular 04/30/25 23:02 Pulse 102 H 04/30/25 22:31 Respiratory Rate 16 05/01/25 10:55 Respiratory Effort Non-Labored, Short of Breath 04/30/25 23:02 Respiratory Depth Deep 04/30/25 23:02 Respiratory Pattern Irregular 04/30/25 23:02 Blood Pressure 139/73 05/01/25 10:55 Blood Pressure Mean 95 05/01/25 10:55 Blood Pressure Position Sitting 04/30/25 18:44 Pulse Oximetry 93 05/01/25 10:55 Oxygen Delivery Method Room Air 05/01/25 10:55 Oxygen Flow Rate 0 05/01/25 10:55 Fraction of Inspired Oxygen (FIO2) 21 05/01/25 02:05 Pain Level 10 05/01/25 02:03 Intake & Output 04/30/25 05/01/25 05/01/25 23:59 11:59 23:59 Intake Total 1000 / 1000 Output Total 200 / 200 Balance 800 / 800 Weight 118.252 kg 120 kg Intake: IV 1000 / 1000 Output: Urine 200 / 200 Other: Urine Color Yellow Yellow Urine Appearance Clear Clear Comment voided upon arrival from ER. pt is voiding the toilet to void. Pt states he has no urinary symptoms. Data Completed and Pending Labs on day of discharge: Labs from last 24 hours 05/01/25 05/01/25 04/30/25 06:35 01:04 23:19 WBC 6.16 RBC 4.47 Hgb 13.9 Hct 42.3 MCV 95 MCH 31.1 MCHC 32.9 RDW 13.3 Plt Count 160 MPV 10.5 PT INR VBG pH VBG pCO2 VBG pO2 VBG HCO3 VBG Total CO2 VBG O2 Saturation VBG Base Excess Sodium 141 Potassium 3.9 Chloride 106 Carbon Dioxide 26.9 Anion Gap 8.1 BUN 14 Creatinine 1.0 Est GFR (CKD-EPI 2020) 81.98 Glucose 107 H Calcium 8.5 Magnesium 2.0 Total Bilirubin 0.3 AST 18 ALT 17 Alkaline Phosphatase 84 Troponin I Total Protein 6.3 L Albumin 2.9 L Urine Color Yellow Urine Clarity Clear Urine pH 7.0 Ur Specific [place] 1.015 Urine Protein 30 H Urine Ketones Negative Urine Blood Negative Urine Nitrite Negative Urine Bilirubin Negative Urine Urobilinogen 0.2 Ur Leukocyte Esterase Negative Urine RBC Negative Urine WBC Negative Ur Epithelial Cells Negative Urine Crystals Negative Urine Bacteria Rare Urine Casts Negative Urine Mucus Negative Ur Culture Indicated? No Urine Glucose Negative COVID-19 Source Nasopharynx SARS-CoV-2 (PCR) Negative Influenza Type A (PCR) Negative Influenza Type B (PCR) Negative RSV (PCR) Negative 04/30/25 04/30/25 04/30/25 23:06 21:50 20:19 WBC RBC Hgb Hct MCV MCH MCHC RDW Plt Count MPV PT 11.1 INR 1.1 VBG pH 7.34 VBG pCO2 47 VBG pO2 48 VBG HCO3 25 VBG Total CO2 22 L VBG O2 Saturation 81 VBG Base Excess -1 Sodium Potassium Chloride Carbon Dioxide Anion Gap BUN Creatinine Est GFR (CKD-EPI 2020) Glucose Calcium Magnesium 1.9 Total Bilirubin AST ALT Alkaline Phosphatase Troponin I 16 16 Total Protein Albumin Urine Color Urine Clarity Urine pH Ur Specific [place] Urine Protein Urine Ketones Urine Blood Urine Nitrite Urine Bilirubin Urine Urobilinogen Ur Leukocyte Esterase Urine RBC Urine WBC Ur Epithelial Cells Urine Crystals Urine Bacteria Urine Casts Urine Mucus Ur Culture Indicated? Urine Glucose COVID-19 Source SARS-CoV-2 (PCR) Influenza Type A (PCR) Influenza Type B (PCR) RSV (PCR) 04/30/25 18:28 WBC RBC Hgb Hct MCV MCH MCHC RDW Plt Count MPV PT INR VBG pH VBG pCO2 VBG pO2 VBG HCO3 VBG Total CO2 VBG O2 Saturation VBG Base Excess Sodium Potassium Chloride Carbon Dioxide Anion Gap BUN Creatinine Est GFR (CKD-EPI 2020) Glucose Calcium Magnesium Total Bilirubin AST ALT Alkaline Phosphatase Troponin I 15 Total Protein Albumin Urine Color Urine Clarity Urine pH Ur Specific [place] Urine Protein Urine Ketones Urine Blood Urine Nitrite Urine Bilirubin Urine Urobilinogen Ur Leukocyte Esterase Urine RBC Urine WBC Ur Epithelial Cells Urine Crystals Urine Bacteria Urine Casts Urine Mucus Ur Culture Indicated? Urine Glucose COVID-19 Source SARS-CoV-2 (PCR) Influenza Type A (PCR) Influenza Type B (PCR) RSV (PCR) PFSH All Active Problems (Updated 05/01/25 @ 08:50 by Barry Stone) Atrial flutter with rapid ventricular response (Acute) Back pain (Acute) Atrial fibrillation and flutter (Acute) Ventral hernia without obstruction or gangrene (Acute) Irregular heartbeat (Acute) Atrial flutter (Acute) Degenerative disc disease, lumbar (Acute) Prediabetes (Acute) GERD (gastroesophageal reflux disease) (Chronic) Hypertriglyceridemia (Chronic) HTN (hypertension) (Chronic) Hypomagnesemia (Chronic) Atrial fibrillation (Chronic) Cigarette smoker (Chronic) Leg edema (Chronic) Tooth abscess (Acute) COPD (chronic obstructive pulmonary disease) (Chronic) Chest pain (Acute) Dog bite of hand (Acute) Medical History Benign neoplasm of colon, unspecified Ulnar neuropathy Blepharitis History of hypokalemia Blepharitis of eyelid of left eye Sleep apnea Hx of adenomatous colonic polyps Obesity Alcohol abuse, in remission pt. states he still smokes Surgical History Hx of cardiac catheterization pt. unsure but states they went up through his leg vein to look at his heart Hx of inguinal hernia repair Hx of colonoscopy Social History Smoking/Tobacco Use Status: Current every day Tobacco Type: cigarettes Smoking packs per day: 2 Smoking cigarettes per day: 40.0 Smoking risk assessment performed?: Yes Alcohol Intake: current Alcohol Intake frequency: 3 or more drinks per day Alcohol type: beer Details: Reports 10 drinks per day Drug use: Never Substance use type: does not use Details: alcohol: t-3, 9 beers Housing: apartment Do you feel safe at home: Yes Additional Social history: lives alone, unable to assess privately Time Spent with Patient Time Spent with Patient: <45 minutes Time was spent: preparing to see the patient(eg.review tests), obtaining and/or reviewing separately otained hiistory, ordering medications,tests, procedures, referring, communicating with other health healthcare economics consultant, indepentently interpreting results, counseling the patient and care coordination
== END 2025-05-01 13:42 | disposition home or self-care (01) ==
LOC: ER 22:36 → MS 22:45
PROVIDERS: Admitting Provider Family Medicine; Emergency Provider Emergency Medicine; PCP Student in an Organized Health Care Education/Training Program; Responsible Provider Family Medicine; Visit Provider Family Medicine
DX: I48.0 Paroxysmal atrial fibrillation (principal); I48.92 Unspecified atrial flutter; J44.9 Chronic obstructive pulmonary disease, unspecified; G47.33 Obstructive sleep apnea (adult) (pediatric); F17.210 Nicotine dependence, cigarettes, uncomplicated; Z79.01 Long term (current) use of anticoagulants; E78.1 Pure hyperglyceridemia; E83.42 Hypomagnesemia; R73.03 Prediabetes; K21.9 Gastro-esophageal reflux disease without esophagitis; E66.9 Obesity, unspecified; I71.40 Abdominal aortic aneurysm, without rupture, unspecified; M54.9 Dorsalgia, unspecified; R06.02 Shortness of breath; Z68.41 Body mass index [BMI] 40.0-44.9, adult; M51.369 Other intervertebral disc degeneration, lumbar region without mention of lumbar back pain or lower extremity pain
CPT/HCPCS: 00123; 36415; 71275; 80053; 82805; 85027; 87040; 87637; 93005; 96374; 96376; 99285; 71045; 74174; 81003; 81015; 83605; 83735; 83880; 84443; 84484; 85025; 85610; 93010; 94660; 94760; 99223; 99238; 99284; G0378; J2270; J3490

== ENCOUNTER 2025-06-25 13:42 | Emergency (ER) | payer MEDICARE, SELFPAY ==
--- NOTE | 2025-06-25 13:45 | RT.EKG_ITS ---
APPROVED REPORT Exam: Resting ECG Reason for Exam: SOB Patient Location: E HR:77 bpm ECG Measurements Heart Rate 77 AXIS [place] [id number] P [id number] QRSd 104 QRS -19 QT 401 T -8 QTc 455 Conclusion Atrial fibrillation...? atrial activity
[2025-06-25 13:48] VITALS: BP 127/79; PULSE 80; RESP 22; TEMP 36.5; O2SAT 93
[2025-06-25 13:51] VITALS: BP 127/79; PULSE 80; RESP 22; RESP 24; TEMP 36.5; O2SAT 93
--- NOTE | 2025-06-25 14:00 | W.ED.GENAD ---
Discharge Plan Discharge Details Chief Complaint: SOB Primary Care Provider: Seng Muniz ED Provider: Yessi Contreras Home Meds and New Rx's Prescriptions: No Action spironolactone 25 mg tablet 25 mg PO DAILY atorvastatin 20 mg tablet 20 mg PO QHS furosemide 40 mg tablet 40 mg PO DAILY magnesium oxide 400 mg magnesium tablet 400 mg PO BID Xarelto 20 mg tablet See Rx Instructions .ROUTE .COMPLEX Qty: 90 3RF Dose Instruction: TAKE ONE TABLET BY MOUTH EVERY DAY Rx Instructions: TAKE ONE TABLET BY MOUTH EVERY DAY icosapent ethyl [Vascepa] 1 gram capsule 2 g PO BID Breztri Aerosphere 160-9-4.8 mcg/actuation HFA aerosol inhaler 2 inh inhalation BID icosapent ethyl [Vascepa] 1 gram capsule 2 g PO BID omeprazole 20 MG capsule,delayed release(DR/EC) 20 mg PO DAILY albuterol sulfate [ProAir HFA] 200 PUFF HFA aerosol inhaler 2 puff Inhalation Q4H PRN PRN ipratropium-albuterol 0.5 mg-3 mg(2.5 mg base)/3 mL solution for nebulization 3 ml inhalation Q4H PRN (Reason: shortness) Qty: 30 0RF metoprolol succinate 100 mg tablet extended release 24 hr 100 mg PO DAILY Qty: 90 0RF Rx Instructions: increase dose morphine 10 mg/5 mL solution 5 mg PO Q4H MDD 30ml PRN (Reason: dyspnea) Qty: 100 0RF HPI General Mode of arrival: ambulatory. Date/Time Provider Initiated Documentation: 06/25/25 13:54. Limitations to Documentation: no limitations. Information obtained by: patient, RN notes reviewed and old records reviewed. HPI Narrative: Patient is a 69-year-old male who presents with shortness of breath, chest pain left shoulder pain since this morning. Patient states he woke up with increasingly short of breath, he also reports nausea no vomiting. He does have a very large abdominal hernia which he reports is supposed to be repaired at [facility]. He does have a history of hypertension, atrial flutter, hyperlipidemia, COPD, GERD. Upon arrival patient has diminished breath sounds bilaterally increased work of breath and is sitting forward. Appears uncomfortable. Related Data Home Medications ?Medication ?Instructions ?Recorded ?Confirmed albuterol sulfate 90 mcg/actuation 2 puff inhalation Q4H PRN PRN 08/25/15 06/25/25 aerosol inhaler (ProAir HFA) omeprazole 20 mg capsule,delayed 20 mg PO DAILY 08/25/15 06/25/25 release atorvastatin 20 mg tablet 20 mg PO QHS 03/28/23 06/25/25 furosemide 40 mg tablet 40 mg PO DAILY 03/28/23 06/25/25 spironolactone 25 mg tablet 25 mg PO DAILY 03/28/23 06/25/25 magnesium oxide 400 mg PO BID 11/07/24 06/25/25 rivaroxaban 20 mg tablet (Xarelto) See Rx Instructions .Route 11/26/24 06/25/25 .COMPLEX #90 tabs ipratropium 0.5 mg-albuterol 3 mg 3 ml inhalation Q4H PRN shortness 01/22/25 06/25/25 (2.5 mg base)/3 mL nebulization #30 mL soln budesonide 160 mcg-glycopyr 9 2 inh inhalation BID 02/21/25 06/25/25 mcg-formot 4.8 mcg/actuation HFA inhaler (Breztri Aerosphere) icosapent ethyl 1 gram capsule 2 g PO BID 02/21/25 06/25/25 (Vascepa) icosapent ethyl 1 gram capsule 2 g PO BID 03/04/25 06/25/25 (Vascepa) metoprolol succinate 100 mg 100 mg PO DAILY #90 tabs 05/01/25 06/25/25 tablet,extended release 24 hr morphine 10 mg/5 mL oral solution 5 mg (2.5 mL) PO Q4H PRN dyspnea 05/01/25 06/25/25 #100 mL Previous Rx's ?Medication ?Instructions ?Recorded rivaroxaban 20 mg tablet (Xarelto) See Rx Instructions .Route 11/26/24 .COMPLEX #90 tabs ipratropium 0.5 mg-albuterol 3 mg 3 ml inhalation Q4H PRN shortness 01/22/25 (2.5 mg base)/3 mL nebulization #30 mL soln metoprolol succinate 100 mg 100 mg PO DAILY #90 tabs 05/01/25 tablet,extended release 24 hr morphine 10 mg/5 mL oral solution 5 mg (2.5 mL) PO Q4H PRN dyspnea 05/01/25 #100 mL Allergies Allergy/AdvReac Type Severity Reaction Status Date / Time Sulfa (Sulfonamide Allergy Intermediate Skin Rash Verified 06/25/25 13:54 Antibiotics) ciprofloxacin Allergy Itching Verified 06/25/25 13:54 lisinopril AdvReac Mild cough Verified 06/25/25 13:54 mold AdvReac Other (See Uncoded 06/25/25 13:54 Comment) General Stated Complaint: SOB ERICKA: 3 Review of Systems All systems reviewed & are unremarkable except as noted in HPI and below Constitutional Constitutional: Reports as per HPI Cardiovascular Cardiovascular: Reports as per HPI, Reports chest pain and Reports dyspnea Respiratory Respiratory: Reports dyspnea Exam Narrative Exam Narrative: Constitutional: Alert and oriented x3. Appears stated age. Obese body habitus. Head: Normocephalic, no trauma. Chest: RRR, Normal S1, S2, distal pulses intact. Resp: Lungs diminished to auscultation bilaterally, no wheezes, rales, or rhonchi. Patient has increased work of breathing and tripoding upon initial presentation. Abdomen: Very large abdominal hernia, patient reports this is chronic. No abdominal pain. Musculoskeletal: Normal gait, Moves all 4 extremities without difficulty. Skin: No suspicious rashes or lesions. Capillary refill less than 2 sec. Neurologic: Cranial nerves II-XII intact. Alert and oriented x 3. Motor: No deficits noted. Sensory: Intact bilaterally all 4 extremities. Hematologic/Lymphatic: No ecchymosis, no lymphadenopathy. Course Vital Signs Vital signs: Vital Signs Temperature 36.5 C 06/25/25 13:48 Pulse 80 06/25/25 13:48 Respiratory Rate 22 06/25/25 13:48 Blood Pressure 127/79 06/25/25 13:48 Pulse Oximetry 93 06/25/25 13:48 Temperature 36.5 C 06/25/25 13:51 Temperature Source Temporal Artery Scan 06/25/25 13:51 Pulse 80 06/25/25 13:51 Respiratory Rate 24 06/25/25 13:51 Respiratory Effort Short of Breath, Labored 06/25/25 13:51 Respiratory Depth Normal 06/25/25 13:51 Respiratory Pattern Normal 06/25/25 13:51 Blood Pressure 127/79 06/25/25 13:51 Blood Pressure Position Sitting 06/25/25 13:51 Pulse Oximetry 93 06/25/25 13:51 Oxygen Delivery Method Room Air 06/25/25 13:51 Oxygen Flow Rate 0 06/25/25 13:51 Pain Level 5 06/25/25 13:51 Medical Decision Making Patient is a 69-year-old male who presents with shortness of breath, chest pain left shoulder pain since this morning. Patient states he woke up with increasingly short of breath, he also reports nausea no vomiting. He does have a very large abdominal hernia which he reports is supposed to be repaired at [facility]. He does have a history of hypertension, atrial flutter, hyperlipidemia, COPD, GERD. Upon arrival patient has diminished breath sounds bilaterally increased work of breath and is sitting forward. Appears uncomfortable. EKG was reviewed by Dr. Robyn You ER attending, old EKG available for review, EKG shows atrial fibrillation with a rate of 77 Differential diagnosis includes but limited to COPD exacerbation, MD, NSTEMI, AAA,, pneumonia, viral illness, CHF 1515: Patient reevaluation he reports he feels much better after the nebulizer treatment. The work of breathing has decreased somewhat. Awaiting CT and repeat serial troponin testing. Care is to be handed off to oncoming provider DUTCH Storm pending the CTA and serial troponins. Discussed patient case in details with him he verbalized understanding. This text was generated using [employer] dictation system, please disregard any oddities of phrase or misspellings. Yes Medical Records Medical records reviewed: Yes I reviewed the patient's medical records. Lab Data Lab results reviewed: Yes I reviewed the patient's lab results. Labs: Laboratory Tests Range/Units 06/25/25 06/25/25 14:18 14:29 WBC (4.4-10.8) 10^3/uL 13.36 H RBC (4.36-5.78) 10^6/uL 5.03 Hgb (13.5-17.5) g/dL 15.5 Hct (40.0-50.0) % 45.3 MCV (80-95) fL 90 MCH (27.0-33.0) pg 30.8 MCHC (32.0-36.0) % 34.2 RDW (11.8-14.1) % 13.5 Plt Count (130-400) 10^3/uL 210 MPV (8.0-11.0) fL 10.6 Immature Gran % % 0.5 Neutrophils % % 82.2 Lymphocytes % % 9.7 Monocytes % % 6.8 Eosinophils % % 0.5 Basophils % % 0.3 Nucleated RBC % (0.0-0.3) % 0.0 Absolute Neutrophils (1.2-6.7) 10^3/uL 10.98 H Absolute Lymphocytes (1.2-3.4) 10^3/uL 1.30 Absolute Monocytes (0.1-0.8) 10^3/uL 0.91 H Absolute Eosinophils (0.0-0.7) 10^3/uL 0.07 Absolute Basophils (0.0-0.2) 10^3/uL 0.04 PT (9.1-11.1) sec 15.0 H INR (0.9-1.1) 1.5 H APTT (20.6-30.2) sec 41.7 H VBG pH (7.31-7.41) 7.40 VBG pCO2 (41-51) mmHg 51 VBG pO2 mmHg 27 VBG HCO3 (23-28) mmol/L 31 H VBG Total CO2 (24-29) mmol/L 28 VBG O2 Saturation % 53 VBG Base Excess (-2-3) mmol/L 7 H Sodium (136-145) mmol/L 136 Potassium (3.5-5.1) mmol/L 4.3 Chloride (98-107) mmol/L 98 Carbon Dioxide (20.0-31.0) mmol/L 30.7 Anion Gap (3-11) mmol/L 7.1 BUN (9-23) mg/dL 14 Creatinine (0.73-1.18) mg/dL 0.97 Est GFR (CKD-EPI 2020) (mL/min/1.73m2) 76.79 Glucose (74-106) mg/dL 105 Calcium (8.3-10.6) mg/dL 9.3 Magnesium (1.6-2.6) mg/dL 1.7 Total Bilirubin (0.2-1.2) mg/dL 1.10 AST (<34) U/L 17 ALT (10-49) U/L 14 Alkaline Phosphatase (46-116) U/L 104 Troponin I (<54) ng/L 9 NT-Pro-B Natriuret Pep (<300) pg/mL 807 H Total Protein (5.7-8.2) g/dL 7.7 Albumin (3.2-5.0) g/dL 4.4 COVID-19 Source Nasopharynx SARS-CoV-2 (PCR) (Negative) Negative Influenza Type A (PCR) (Negative) Negative Influenza Type B (PCR) (Negative) Negative RSV (PCR) (Negative) Negative Quality:SDOH Health Related Social Needs: Health related social needs risk of homeless Health related social needs details n/a PFSH All Active Problems Atrial flutter with rapid ventricular response (Acute) Back pain (Acute) Atrial fibrillation and flutter (Acute) Ventral hernia without obstruction or gangrene (Acute) Irregular heartbeat (Acute) Dog bite of hand (Acute) Chest pain (Acute) COPD (chronic obstructive pulmonary disease) (Chronic) Tooth abscess (Acute) Leg edema (Chronic) Cigarette smoker (Chronic) Atrial fibrillation (Chronic) Hypomagnesemia (Chronic) HTN (hypertension) (Chronic) Hypertriglyceridemia (Chronic) GERD (gastroesophageal reflux disease) (Chronic) Prediabetes (Acute) Degenerative disc disease, lumbar (Acute) Atrial flutter (Acute) Medical History Benign neoplasm of colon, unspecified Ulnar neuropathy Blepharitis History of hypokalemia Blepharitis of eyelid of left eye Sleep apnea Hx of adenomatous colonic polyps Obesity Alcohol abuse, in remission pt. states he still smokes Surgical History Hx of cardiac catheterization pt. unsure but states they went up through his leg vein to look at his heart Hx of inguinal hernia repair Hx of colonoscopy Social History Smoking/Tobacco Use Status: Current every day Tobacco Type: cigarettes Smoking packs per day: 2 Smoking cigarettes per day: 40.0 Smoking risk assessment performed?: Yes Alcohol Intake: current Alcohol Intake frequency: 3 or more drinks per day Alcohol type: beer Details: Reports 10 drinks per day Drug use: Never Substance use type: does not use Details: alcohol: t-3, 9 beers Housing: apartment Do you feel safe at home: Yes Additional Social history: lives alone, unable to assess privately PAWSS Have you Been Recently Intoxicated or Drunk Within the Last 30 days?: No Have you Ever Experienced Previous Episodes of Alcohol Withdrawal?: No Have you ever Experienced Withdrawal Seizures?: No Have you ever Experienced Delirium Tremens(DT)s?: No Have you ever undergone Alcohol Rehabilitation Treatment (i.e, inpt ot outpatient treatment programs)?: No Have you ever Experienced Blackouts?: No Have you ever Combined Alcohol with other Downers within the last 90 days?: No Result: 0
[2025-06-25] MEDS: Albuterol/Ipratropium 3 ML UPD VIAL UPD (14:20)
[2025-06-25] MEDS: methylPREDNISolone SUCC 125 MG VIAL IVP (14:20)
[2025-06-25 14:26] LABS: BE (Venous) 7 mmol/L (-2-3); HCO3 (Venous) 31 mmol/L (23-28); O2 Sat (Venous) 53 %; TCO2 (Venous) 28 mmol/L (24-29); pCO2 (Venous) 51 mmHg (41-51); pO2 (Venous) 27 mmHg
[2025-06-25 14:27] LABS: Abs Immature Grans 0.07 10^3/uL (0.0-0.06); HCT 45.3 % (40.0-50.0); HGB 15.5 g/dL (13.5-17.5); Immature Grans % 0.5 %; MCH 30.8 pg (27.0-33.0); MCHC 34.2 % (32.0-36.0); MCV 90 fL (80-95); MPV 10.6 fL (8.0-11.0); Platelet Count 210 10^3/uL (130-400); RBC 5.03 10^6/uL (4.36-5.78); RDW 13.5 % (11.8-14.1); RDW-SD 44.2 fL; WBC 13.36 10^3/uL (4.4-10.8)
[2025-06-25 14:46] LABS: Magnesium 1.7 mg/dL (1.6-2.6)
[2025-06-25 14:48] LABS: ALT 14 U/L (10-49); AST 17 U/L (<34); Albumin 4.4 g/dL (3.2-5.0); Alkaline Phosphatase 104 U/L (46-116); Anion Gap 7.1 mmol/L (3-11); BUN 14 mg/dL (9-23); Bilirubin, Total 1.10 mg/dL (0.2-1.2); CO2 30.7 mmol/L (20.0-31.0); Calcium 9.3 mg/dL (8.3-10.6); Chloride 98 mmol/L (98-107); Glucose 105 mg/dL (74-106); Potassium 4.3 mmol/L (3.5-5.1); Sodium 136 mmol/L (136-145); Total Protein 7.7 g/dL (5.7-8.2); Troponin I 9 ng/L (<54)
[2025-06-25 14:50] LABS: INR 1.5 (0.9-1.1); PTT Activated 41.7 sec (20.6-30.2); Prothrombin Time 15.0 sec (9.1-11.1)
[2025-06-25 15:15] LABS: COVID-19 PCR Negative (Negative); RSV PCR Negative (Negative)
[2025-06-25 15:55] LABS: Troponin I 9 ng/L (<54)
== END 2025-06-25 18:05 | disposition left against medical advice (07) ==
PROVIDERS: Registered Nurse Emergency; Emergency Provider Physician Assistant; PCP Student in an Organized Health Care Education/Training Program
DX: R06.02 Shortness of breath (principal); I48.92 Unspecified atrial flutter; M25.512 Pain in left shoulder; Z53.20 Procedure and treatment not carried out because of patient's decision for unspecified reasons; Z59.811 Housing instability, housed, with risk of homelessness
CPT/HCPCS: 36415; 80053; 82805; 87637; 93005; 94640; 96374; 99285; 83735; 83880; 84484; 85025; 85610; 85730; 93010; 99284; J2919; J7620

== ENCOUNTER 2025-06-30 11:33 | Outpatient (REF) | payer MEDICARE, SELFPAY ==
[2025-06-30 16:04] LABS: Anion Gap 5.7 mmol/L (3-11); BUN 15 mg/dL (9-23); CO2 31.3 mmol/L (20.0-31.0); Calcium 9.0 mg/dL (8.3-10.6); Chloride 103 mmol/L (98-107); Glucose 94 mg/dL (74-106); Potassium 4.7 mmol/L (3.5-5.1); Sodium 140 mmol/L (136-145)
== END 2025-06-30 11:34 | disposition home or self-care (01) ==
LOC: NCHCN 11:33
PROVIDERS: PCP Student in an Organized Health Care Education/Training Program; Visit Provider Student in an Organized Health Care Education/Training Program
DX: I10 Essential (primary) hypertension (principal)
CPT/HCPCS: 80048

== ENCOUNTER → 2025-06-30 12:14 | Outpatient (CLI) | payer MEDICARE, SELFPAY ==
--- NOTE | 2025-06-30 11:33 | DI.RAD_ITS ---
Exam(s) XR CHEST 2V PA LATERAL EXAM: XR CHEST 2V PA LATERAL CLINICAL HISTORY: J44.1 COPD w acute exacerbation. TECHNIQUE: 2D digital imaging was performed. COMPARISON: CR XR PORTABLE CHEST AP from 04/30/[address] THORAX ABD/PEL CTA from 04/30/2025 FINDINGS: 2 views: Heart size is upper normal. The mediastinum is not widened. Right lung is clear. There are increased markings in the lateral left lung base. Consistent with probable atelectasis although cannot exclude mild infiltrate. No obvious pleural effusions. No pneumothorax. IMPRESSION: Left lung base findings, more so than previous. Atelectasis and possible early infiltrate. No pleural effusions. No pulmonary edema. DATA REPOSITORY: RADIATION DOSE DELIVERED:
== END ==
LOC: DI 12:15
PROVIDERS: PCP Student in an Organized Health Care Education/Training Program; Visit Provider Student in an Organized Health Care Education/Training Program
DX: J44.1 Chronic obstructive pulmonary disease with (acute) exacerbation (principal); J98.11 Atelectasis
CPT/HCPCS: 71046

== ENCOUNTER → 2025-07-09 10:43 | Outpatient (BNVA) | payer MEDICARE, SELFPAY | PROVIDERS: PCP Student in an Organized Health Care Education/Training Program; Referring Provider Student in an Organized Health Care Education/Training Program; Visit Provider Physician Assistant Surgical | DX: J44.1 Chronic obstructive pulmonary disease with (acute) exacerbation (principal); I50.9 Heart failure, unspecified; F17.210 Nicotine dependence, cigarettes, uncomplicated; K21.9 Gastro-esophageal reflux disease without esophagitis; J96.01 Acute respiratory failure with hypoxia | CPT/HCPCS: 99215; 36415 ==

== ENCOUNTER 2025-07-09 12:08 | Outpatient (REF) | payer MEDICARE, SELFPAY ==
[2025-07-09 12:34] LABS: Abs Immature Grans 0.08 10^3/uL (0.0-0.06); HCT 46.0 % (40.0-50.0); HGB 15.2 g/dL (13.5-17.5); Immature Grans % 1.0 %; MCH 30.5 pg (27.0-33.0); MCHC 33.0 % (32.0-36.0); MCV 92 fL (80-95); MPV 10.1 fL (8.0-11.0); Platelet Count 225 10^3/uL (130-400); RBC 4.99 10^6/uL (4.36-5.78); RDW 13.6 % (11.8-14.1); RDW-SD 46.4 fL; WBC 7.84 10^3/uL (4.4-10.8)
[2025-07-09 12:50] LABS: ALT 25 U/L (10-49); AST 19 U/L (<34); Albumin 3.8 g/dL (3.2-5.0); Alkaline Phosphatase 69 U/L (46-116); Anion Gap 5.5 mmol/L (3-11); BUN 19 mg/dL (9-23); Bilirubin, Total 0.5 mg/dL (0.2-1.2); CO2 28.5 mmol/L (20.0-31.0); Calcium 8.6 mg/dL (8.3-10.6); Chloride 104 mmol/L (98-107); Glucose 87 mg/dL (74-106); Potassium 4.8 mmol/L (3.5-5.1); Sodium 138 mmol/L (136-145); Total Protein 6.1 g/dL (5.7-8.2)
== END 2025-07-09 12:09 | disposition home or self-care (01) ==
LOC: LBN 12:08
PROVIDERS: PCP Student in an Organized Health Care Education/Training Program; Visit Provider Physician Assistant Surgical
DX: J44.9 Chronic obstructive pulmonary disease, unspecified (principal); I50.9 Heart failure, unspecified
CPT/HCPCS: 80053; 83880; 85025

== ENCOUNTER → 2025-07-15 08:34 | Outpatient (BNVA) | payer MEDICARE, SELFPAY | PROVIDERS: PCP Student in an Organized Health Care Education/Training Program; Referring Provider Student in an Organized Health Care Education/Training Program; Visit Provider Physician Assistant Surgical | DX: J44.1 Chronic obstructive pulmonary disease with (acute) exacerbation (principal); K21.9 Gastro-esophageal reflux disease without esophagitis; J96.01 Acute respiratory failure with hypoxia; F17.210 Nicotine dependence, cigarettes, uncomplicated | CPT/HCPCS: 99215 ==

== ENCOUNTER 2025-07-15 09:35 | Observation (INO) | payer MEDICARE, SELFPAY ==
--- NOTE | 2025-07-15 09:30 | RT.EKG_ITS ---
APPROVED REPORT Exam: Resting ECG Reason for Exam: sob Patient Location: E HR:95 bpm ECG Measurements Heart Rate 95 AXIS MS [id number] P [id number] QRSd 99 QRS 94 QT 341 T [id number] QTc 433 Conclusion Atrial flutter with predominant 3:1 AV block...A-rate 306, multiple Ps Right axis deviation...QRS axis ( 91,269) Abnormal T, consider ischemia, diffuse leads...T <-0.20mV, ant/lat/inf No Occlusion NH
[2025-07-15 09:42] VITALS: BP 148/65; PULSE 95; RESP 24; TEMP 36.9; O2SAT 95
[2025-07-15 09:47] VITALS: BP 148/65; PULSE 95; RESP 24; TEMP 36.9; O2SAT 95
[2025-07-15 10:08] VITALS: PULSE 122; RESP 24; O2SAT 92
[2025-07-15] MEDS: Levalbuterol 1.25 MG/3 ML UPD VIAL UPD (10:08)
[2025-07-15] MEDS: Furosemide 40 MG/4 ML VIAL IVP ×2 (10:09→12:36)
[2025-07-15 10:20] LABS: BE (Venous) 8 mmol/L (-2-3); HCO3 (Venous) 34 mmol/L (23-28); O2 Sat (Venous) 57 %; TCO2 (Venous) 30 mmol/L (24-29); pCO2 (Venous) 57 mmHg (41-51); pO2 (Venous) 31 mmHg
[2025-07-15 10:21] LABS: Abs Immature Grans 0.14 10^3/uL (0.0-0.06); HCT 48.1 % (40.0-50.0); HGB 16.0 g/dL (13.5-17.5); Immature Grans % 1.1 %; MCH 31.7 pg (27.0-33.0); MCHC 33.3 % (32.0-36.0); MCV 95 fL (80-95); MPV 10.3 fL (8.0-11.0); Platelet Count 218 10^3/uL (130-400); RBC 5.04 10^6/uL (4.36-5.78); RDW 14.5 % (11.8-14.1); RDW-SD 50.3 fL; WBC 12.40 10^3/uL (4.4-10.8)
--- NOTE | 2025-07-15 10:30 | DI.US_ITS ---
APPROVED REPORT EXAM: Comprehensive 2D, Doppler, and color-flow Echocardiogram Patient Location: ER Computer Science Professor: Karyna Pichardo RT (R) (CT) [facility] Rhythm: Atrial Fibrillation Other Information Study Quality: Technically Difficult Conclusion Mild concentric left ventricular hypertrophy. Ejection fraction is 60 to 65%. Wall motion is normal Moderately enlarged right ventricle. Generalized hypocontractility Normal left atrial size. Moderately dilated right atrium Mildly thickened mitral leaflets with mild regurgitation Estimated right ventricular systolic pressure is 25 mmHg Wall motion Left Ventricle The left ventricle is normal size. The left ventricular systolic function is normal. The left ventricular ejection fraction is within the normal range. Mild concentric left ventricular hypertrophy. There is normal LV segmental wall motion. Diastolic indices are difficult to interpret with atrial fibrillation, however e/e' average is > 11- potentially implying elevated left atrial filling pressures. There is no ventricular septal defect visualized. LVEF is 60-65% with beat to beat variability. Right Ventricle Right ventricle is moderately dilated. Right ventricle function is reduced with moderate hypokinesia- the RV apex is hypo to akinetic. There is normal right ventricular wall thickness. Moderator band is seen in the right ventricle. Atria The left atrium size is normal. Right atrium is moderately dilated. Interatrial septum not well visualized. Aortic Valve The aortic valve is normal in structure. There is no aortic valvular stenosis. No aortic regurgitation is present. Mitral Valve Mitral valve leaflets are mildly thickened. No evidence of mitral valve stenosis. Mild mitral regurgitation. Tricuspid Valve The tricuspid valve is normal in structure. There is no tricuspid valve stenosis. Trace tricuspid regurgitation. The RVSP is normal at 25.4 mmHg. Pulmonic Valve The pulmonary valve is normal in structure. There is no pulmonic valvular stenosis. Trace pulmonic regurgitation. Great Vessels The aortic root is normal in size. The pulmonary artery is normal. The proximal ascending aorta is normal in size. The IVC is mildly dilated and collapses >50% with inspiration. Pericardium Prominent anterior epicardial fat pad is present. 2D Dimensions IVSD d PLAX 1.41 cm M: 0.6-1.2 Ao Root d 3.38 cm M: 3.1 - 3.7 LVPW d PLAX 1.17 cm M: 0.6 - 1.2 Ao Asc Diam d 3.37 cm M: 2.6 - 3.4 LVID d PLAX 4.54 cm M: 4.2 - 5.8 IVC Diam exp d SLAX 2.1 cm LVDs 3.08 cm M: 2.5 - 4.0 LV EF Teichholz 60.5 % FS 32.21 % LV EDV (Teich) 94.3 mL LV ESV (Teich) 37.2 mL M-Mode TAPSE 1.55 cm (M/F) >1.7 Auto EF LV EDV A4C 109.6 mL LV EDV A2C 129.2 mL LV EDV BP 118.3 mL LV ESV A4C 41.1 mL LV ESV A2C 57.2 mL LV ESV BP 48.7 mL LVEF(%) A4C 62.5 % LVEF(%) A2C 55.7 % LVEF(%) BP 58.8 % LV SV A4C 68.5 ml LV SV A2C 72.0 ml LV SV BP 69.5 ml LV CO A4C 5.5 L/min LV CO A2C 5.8 L/min LV CO BP 5.7 L/min HR A4C 80.91 BPM HR A2C 80.91 BPM LV EDV Index (BP) LV Volumes - Method of Disks (Issa's) Single Plane 2D LV Volumes Biplane 2D LV Volumes LV EDV A4C 111.4 mL LV EDV BP 110.94 mL M: 62 - 150 LV ESV A4C 35.6 mL LV ESV BP 34.7 mL LVEF(%) A4C 68.1 % LVEF(%) BP 68.69 % M: 52 - 72 LV EDV A2C 102.3 mL LV EDV BP Index 49.08 mL/m2 M: 34 - 74 LV ESV A2C 33.3 mL SV BP LVEF(%) A2C 67.4 % SV Index LV Strain Long Pk Overal Avg (s) 16.42 RV Strain Global Peak Long. Strain A4C 7.13 Global Peak Long. Strain A4C FW 8.58 LA Volume LA Length A4C 6.2 cm LA Length A2C 5.8 cm LA Area A4C s 21.38 cm2 LA Area A2C s 20.35 cm2 LA Vol A4C A-L 62.91 mL LA Vol A2C A-L 60.81 mL LA Vol Biplane A-L 63.9 mL LA Vol/BSA A4C A-L LA Vol/BSA A2C A-L LA Vol/BSA BP A-L 28.3 mL/m2 LA Vol A4C MOD 59.1 mL LA Vol A2C MOD 56.4 mL LA Vol BP MOD 59.6 mL LV Diastology MV E' medial 0.090 (>0.07 m/s) MV E Vmax 1.19 (0.4-1.3 m/s) MV E/E' MED 13.30 (<14) MV A Vmax 0.25 (0.4-1.3 m/s) MV E' lateral 0.118 (>0.1 m/s) E/A Ratio 4.8 MV E/E' LAT 10.08 (<14) MV E' Average 0.104 m/s MV E/E'(average) 11.47 Aortic Valve LVOT Diam s 2.30 cm Mitral Valve MV DT 181 (160-240 msec) Tricuspid Valve RA Pressure 8.00 mmHg TR Vmax 2.08 m/s TV S' 0.13 m/s TR Peak Grad 17.3 mmHg RVSP (TR) 25.4 mmHg
[2025-07-15] MEDS: Normal Saline - Diluent 50 ML VIAL IJ (10:48)
[2025-07-15] MEDS: Normal Saline Flush 10 ML SYR IVP (10:48)
[2025-07-15] MEDS: Omnipaque 350 MG/ML 500 ML BTL-Imaging package IJ (10:49)
[2025-07-15 10:53] LABS: Magnesium 1.9 mg/dL (1.6-2.6)
[2025-07-15 10:54] LABS: Troponin I 11 ng/L (<54)
--- NOTE | 2025-07-15 10:54 | DI.CT_ITS ---
Exam(s) CT CHEST PE CTA EXAM: CT CHEST PE CTA CLINICAL HISTORY: persistent chest pain and dyspnea. TECHNIQUE: Imaging Protocol: Axial CT angiography was performed with multi- slice acquisition and multi-planar and/or 3D reconstructions. Lung Computer Aided Detection (CAD) was utilized. CONTRAST MATERIAL: Intravenous: Omnipaque 350 contrast volume:100 mL COMPARISON: CT CT THORAX ABD/PEL CTA from 04/30/2025 CR XR CHEST 2V PA LATERAL from 06/30/2025 FINDINGS: Tracheobronchial tree: Patent where visualized. No bronchiectasis. Pulmonary parenchyma: No consolidation or dominant measurable mass. Moderate centrilobular emphysematous changes are present. Pulmonary Arteries: No evidence of filling defect to suggest pulmonary emboli. Mediastinum and Celia: No dominant adenopathy or fluid collection. The esophagus is unremarkable. Visualized thyroid gland: Unremarkable. Pleura: No effusion or pneumothorax. Heart: The heart is not dilated. Coronary artery calcifications are present. No pericardial effusion. Aorta: Thoracic aorta non-dilated. Atherosclerotic calcifications are present. Upper abdomen: Unremarkable. Soft tissues: There is gynecomastia. Bones: Within normal limits for the patient's age. IMPRESSION: 1. There is no evidence of a pulmonary embolism or thoracic aortic aneurysm. 2. There is no acute pulmonary process. RADIATION DOSE DELIVERED: 185.6mGy.cm Total DLP DATA REPOSITORY: All CT scans at this facility are submitted to the National Radiology Data Registry (NRDR) Dose Index Registry (DIR) with the [employer] (A[employer]). RADIATION OPTIMIZATION: All CT scans at this facility use at least one of these dose optimization techniques: automated exposure control; mA and/or kV adjustment per patient size (includes targeted exams where dose is matched to clinical indication); or iterative reconstruction.
[2025-07-15 10:57] LABS: TSH (W/Ref FT4) 1.46 uIU/mL (0.55-4.78)
[2025-07-15 10:59] LABS: ALT 22 U/L (10-49); AST 19 U/L (<34); Albumin 3.9 g/dL (3.2-5.0); Alkaline Phosphatase 66 U/L (46-116); Anion Gap 7.3 mmol/L (3-11); BUN 19 mg/dL (9-23); Bilirubin, Total 0.6 mg/dL (0.2-1.2); CO2 30.9 mmol/L (20.0-31.0); Calcium 9.2 mg/dL (8.3-10.6); Chloride 100 mmol/L (98-107); Glucose 103 mg/dL (74-106); Potassium 4.8 mmol/L (3.5-5.1); Sodium 138 mmol/L (136-145); Total Protein 6.4 g/dL (5.7-8.2)
[2025-07-15 11:45] LABS: BE (Venous) 8 mmol/L (-2-3); HCO3 (Venous) 34 mmol/L (23-28); O2 Sat (Venous) 52 %; TCO2 (Venous) 30 mmol/L (24-29); pCO2 (Venous) 58 mmHg (41-51); pO2 (Venous) 29 mmHg
[2025-07-15 12:05] LABS: Troponin I 12 ng/L (<54)
[2025-07-15 13:35] VITALS: BP 106/68; PULSE 106
[2025-07-15] MEDS: Metoprolol 5 MG/5 ML VIAL IVP (13:35)
[2025-07-15] MEDS: Amiodarone 200 MG TAB 600 MG PO (14:58)
--- NOTE | 2025-07-15 15:00 | W.ED.GENAD ---
Discharge Plan Discharge Details Chief Complaint: RespSymp Admit Date/Time: 07/15/25 15:20 Admit Provider: Barry Stone Attending Provider: To Barahona Primary Care Provider: Seng Muniz ED Provider: To Barahona Discharge Data Discharge Date/Time-TO BE ENTERED AT DEPARTURE: 07/15/25 23:34 HPI General Date/Time Provider Initiated Documentation: 07/15/25 09:42. HPI Narrative: 69-year-old male with history of COPD, atrial flutter with RVR, ventral hernia, hypomagnesemia, chronic anticoagulation, prediabetes presents with report of dyspnea sent down from pulmonology by her respiratory failure. Patient has been on multiple outpatient medications including multiple antibiotics and steroids. He has had no improvement of symptoms. They are questioning another source of is definitely at this time. Patient states he was told he had concerning findings for heart attack but has never actually been diagnosed per patient with coronary artery disease. He does continue to smoke tobacco. He is compliant with his anticoagulation and medications and did take all of his meds today. Related Data Home Medications ?Medication ?Instructions ?Recorded ?Confirmed albuterol sulfate 90 mcg/actuation 2 puff inhalation Q4H PRN PRN 08/25/15 07/15/25 aerosol inhaler (ProAir HFA) omeprazole 20 mg capsule,delayed 20 mg PO DAILY 08/25/15 07/15/25 release atorvastatin 20 mg tablet 20 mg PO QHS 03/28/23 07/15/25 furosemide 40 mg tablet 40 mg PO DAILY 03/28/23 07/15/25 spironolactone 25 mg tablet 25 mg PO DAILY 03/28/23 07/15/25 magnesium oxide 400 mg PO BID 11/07/24 07/15/25 rivaroxaban 20 mg tablet (Xarelto) See Rx Instructions .Route 11/26/24 07/15/25 .COMPLEX #90 tabs ipratropium 0.5 mg-albuterol 3 mg 3 ml inhalation Q4H PRN shortness 01/22/25 07/15/25 (2.5 mg base)/3 mL nebulization #30 mL soln icosapent ethyl 1 gram capsule 2 g PO BID 02/21/25 07/15/25 (Vascepa) metoprolol succinate 100 mg 100 mg PO DAILY #90 tabs 05/01/25 07/15/25 tablet,extended release 24 hr morphine 10 mg/5 mL oral solution 5 mg (2.5 mL) PO Q4H PRN dyspnea 05/01/25 07/15/25 #100 mL budesonide 160 mcg-glycopyr 9 2 inh inhalation BID #10.7 grams 07/09/25 07/15/25 mcg-formot 4.8 mcg/actuation HFA inhaler (Breztri Aerosphere) levofloxacin 750 mg tablet 750 mg PO DAILY #7 tabs 07/09/25 07/15/25 prednisone 10 mg tablet 10 mg PO DAILY #34 tabs 07/09/25 07/15/25 Previous Rx's ?Medication ?Instructions ?Recorded rivaroxaban 20 mg tablet (Xarelto) See Rx Instructions .Route 11/26/24 .COMPLEX #90 tabs ipratropium 0.5 mg-albuterol 3 mg 3 ml inhalation Q4H PRN shortness 01/22/25 (2.5 mg base)/3 mL nebulization #30 mL soln metoprolol succinate 100 mg 100 mg PO DAILY #90 tabs 05/01/25 tablet,extended release 24 hr morphine 10 mg/5 mL oral solution 5 mg (2.5 mL) PO Q4H PRN dyspnea 05/01/25 #100 mL budesonide 160 mcg-glycopyr 9 2 inh inhalation BID #10.7 grams 07/09/25 mcg-formot 4.8 mcg/actuation HFA inhaler (Breztri Aerosphere) levofloxacin 750 mg tablet 750 mg PO DAILY #7 tabs 07/09/25 prednisone 10 mg tablet 10 mg PO DAILY #34 tabs 07/09/25 Allergies Allergy/AdvReac Type Severity Reaction Status Date / Time Sulfa (Sulfonamide Allergy Intermediate Skin Rash Verified 07/15/25 09:46 Antibiotics) ciprofloxacin Allergy Itching Verified 07/15/25 09:46 lisinopril AdvReac Mild cough Verified 07/15/25 09:46 mold AdvReac Other (See Uncoded 07/15/25 09:46 Comment) General Stated Complaint: RespSymp ERICKA: 2 Exam Narrative Exam Narrative: 69-year-old male in respiratory distress tach tachypneic retracting diminished lung sounds no abdominal tenderness easily reducible abdominal ventral hernia, 3+ edema to bilateral lower extremities no abdominal tenderness distal pulses intact, answering questions appropriately Course Vital Signs Vital signs: Vital Signs Temperature 36.9 C 07/15/25 09:42 Pulse 95 H 07/15/25 09:42 Respiratory Rate 24 07/15/25 09:42 Blood Pressure 148/65 H 07/15/25 09:42 Pulse Oximetry 95 07/15/25 09:42 Temperature 36.9 C 07/15/25 09:47 Pulse 106 H 07/15/25 13:35 Respiratory Rate 24 07/15/25 10:08 Blood Pressure 106/68 07/15/25 13:35 Pulse Oximetry 92 07/15/25 10:08 Oxygen Delivery Method Room Air 07/15/25 10:08 Oxygen Flow Rate 0 07/15/25 10:08 Lab/Test Results Lab/Test Results: Laboratory Tests Range/Units 07/15/25 07/15/25 10:03 11:40 WBC (4.4-10.8) 10^3/uL 12.40 H RBC (4.36-5.78) 10^6/uL 5.04 Hgb (13.5-17.5) g/dL 16.0 Hct (40.0-50.0) % 48.1 MCV (80-95) fL 95 MCH (27.0-33.0) pg 31.7 MCHC (32.0-36.0) % 33.3 RDW (11.8-14.1) % 14.5 H Plt Count (130-400) 10^3/uL 218 MPV (8.0-11.0) fL 10.3 Immature Gran % % 1.1 Neutrophils % % 85.2 Lymphocytes % % 8.9 Monocytes % % 4.1 Eosinophils % % 0.4 Basophils % % 0.3 Nucleated RBC % (0.0-0.3) % 0.0 Absolute Neutrophils (1.2-6.7) 10^3/uL 10.56 H Absolute Lymphocytes (1.2-3.4) 10^3/uL 1.10 L Absolute Monocytes (0.1-0.8) 10^3/uL 0.51 Absolute Eosinophils (0.0-0.7) 10^3/uL 0.05 Absolute Basophils (0.0-0.2) 10^3/uL 0.04 VBG pH (7.31-7.41) 7.38 7.37 VBG pCO2 (41-51) mmHg 57 H 58 H VBG pO2 mmHg 31 29 VBG HCO3 (23-28) mmol/L 34 H 34 H VBG Total CO2 (24-29) mmol/L 30 H 30 H VBG O2 Saturation % 57 52 VBG Base Excess (-2-3) mmol/L 8 H 8 H VBG Lactate (<or=2.0) mmol/L 3.2 H* 3.6 H* Sodium (136-145) mmol/L 138 Potassium (3.5-5.1) mmol/L 4.8 Chloride (98-107) mmol/L 100 Carbon Dioxide (20.0-31.0) mmol/L 30.9 Anion Gap (3-11) mmol/L 7.3 BUN (9-23) mg/dL 19 Creatinine (0.73-1.18) mg/dL 1.00 Est GFR (CKD-EPI 2020) (mL/min/1.73m2) 74.13 Glucose (74-106) mg/dL 103 Calcium (8.3-10.6) mg/dL 9.2 Magnesium (1.6-2.6) mg/dL 1.9 Total Bilirubin (0.2-1.2) mg/dL 0.6 AST (<34) U/L 19 ALT (10-49) U/L 22 Alkaline Phosphatase (46-116) U/L 66 Troponin I (<54) ng/L 11 12 NT-Pro-B Natriuret Pep (<300) pg/mL 1001 H Total Protein (5.7-8.2) g/dL 6.4 Albumin (3.2-5.0) g/dL 3.9 TSH (0.55-4.78) uIU/mL 1.46 Medical Decision Making Results: CBC of 12.4, pCO2 of 58, repeat from 57 2 hours earlier PCS 3 of 34 VBG lactate of 3.6, low suspicion that this is infectious given negative CTA and no other source of infection chemistry within normal limits BNP of 1000, echocardiogram is concerning with hypokinesis in the right ventricle and right atrium with dilation change from 6 months prior within normal echocardiogram, CTA PE without acute abnormality per radiology interpretation my review troponins negative Assessment and plan: Patient presenting with respiratory distress from pulmonology after failing outpatient treatment. Echocardiogram today is concerning for pulmonary hypertension with acute CHF, receiving 80 mg of IV Lasix, diagnostic lab interpretation and review, diagnostic echocardiogram interpretation and review, continued monitoring with supplementation for atrial flutter with RVR receiving two 5 mg doses of IV metoprolol, considered cardioversion however patient is high risk for cardioversion at our facility and we do not currently have ICU capacity. Spoke with cardiology at [facility] and recommendation for transfer to their facility. Patient has been compliant with his Xarelto, he will receive oral amiodarone after discussion with Emily Mendiola, cardiology nurse practitioner. 600 mg loading dose x 2 will be initiated and patient will be likely transferred to [facility] tomorrow, the accepting physician is Winter Coffey. At this time patient has received 80 mg of IV Lasix with 1800 cc of output, two 5 mg doses of IV metoprolol, 600 mg of p.o. amiodarone, 2 Xopenex treatments. Patient has otherwise remained relatively stable in the emergency department and is agreeable to transfer down to [facility] tomorrow. Case discussed with admitting hospitalist for patient to be admitted in the emergency department secondary to lack of ICU bed upstairs. He wishes to be full CODE STATUS. I will place patient on CPAP, he does use this at home and secondary to mildly increasing VBG and patient is now feeling slightly tired, and thinks this will benefit him from a respiratory standpoint. metoprolol 25 mg prn every 6 hours-per cardiology at [facility]. Care transitioned to Dr. HUMMEL hospitalist medicine and Den Bowden made aware that pt remains the emergency department. Quality:SDOH Health Related Social Needs: Health related social needs risk of homeless Health related social needs details n/a PFSH All Active Problems (Updated 07/15/25 @ 18:58 by To Barahona MD) Benign essential hypertension (Acute) Tobacco dependence due to cigarettes (Acute) Pneumonia due to gram-positive bacteria (Acute) Acute on chronic respiratory failure with hypoxemia (Acute) Dyspnea on exertion (Acute) Acute hypoxic respiratory failure (Acute) COPD exacerbation (Acute) Shortness of breath (Acute) Atrial flutter with rapid ventricular response (Acute) Back pain (Acute) Atrial fibrillation and flutter (Acute) Ventral hernia without obstruction or gangrene (Acute) Irregular heartbeat (Acute) Dog bite of hand (Acute) Chest pain (Acute) COPD (chronic obstructive pulmonary disease) (Chronic) Tooth abscess (Acute) Leg edema (Chronic) Cigarette smoker (Chronic) Atrial fibrillation (Chronic) Hypomagnesemia (Chronic) HTN (hypertension) (Chronic) Hypertriglyceridemia (Chronic) GERD (gastroesophageal reflux disease) (Chronic) Prediabetes (Acute) Degenerative disc disease, lumbar (Acute) Atrial flutter (Acute) Medical History Benign neoplasm of colon, unspecified Ulnar neuropathy Blepharitis History of hypokalemia Blepharitis of eyelid of left eye Sleep apnea Hx of adenomatous colonic polyps Obesity Alcohol abuse, in remission pt. states he still smokes Surgical History Hx of cardiac catheterization pt. unsure but states they went up through his leg vein to look at his heart Hx of inguinal hernia repair Hx of colonoscopy Social History Smoking/Tobacco Use Status: Current every day Tobacco Type: cigarettes Smoking packs per day: 2 Smoking cigarettes per day: 40.0 Smoking risk assessment performed?: Yes Alcohol Intake: current Alcohol Intake frequency: 3 or more drinks per day Alcohol type: beer Details: Reports 10 drinks per day Drug use: Never Substance use type: does not use Details: alcohol: t-3, 9 beers Housing: apartment Do you feel safe at home: Yes Additional Social history: lives alone, unable to assess privately
--- NOTE | 2025-07-15 15:21 | W.PM.HP.N ---
Date of service: 07/15/25 Time of Service: 15:00 Assessment and Plan Assessment and plan (1) Atrial flutter with rapid ventricular response: Status: Acute Assessment and plan: Longstanding aflutter, history of [address] Swift in cardiology clinic Some improvement in HR with metoprolol IV pushes and PO amiodarone, but returned to HR 150 Gave diltiazem 15 IV push after discussion with ED physician as patient is boarding in ED pending [facility] bed Per [facility], this is his regimen: - amiodarone 600 PO at noon - amiodarone 600 PO after 12 hours - amiodarone 200 TID starting in the morning - metoprolol tartrate 25 PO q6H PRN for HR > 120 Anticipate transfer to [facility] for ICU care as [facility] is over capacity for ICU (2) Acute on chronic respiratory failure with hypoxemia: Status: Acute Assessment and plan: Currently requiring CPAP to maintain SpO2 > 88% He has home CPAP Continue bronchodilators, levalbuterol, Breztri (3) Pneumonia due to gram-positive bacteria: Status: Acute Assessment and plan: Continue levofloxacin and steroids started in clinic Prednisone 10 daily (4) Hypomagnesemia: Status: Chronic Assessment and plan: Chronic. Mg 1.9 on arrival. Hold home PO supplementation (5) Degenerative disc disease, lumbar: Status: Acute Assessment and plan: Chronic pain, not on narcotics Previous prescription for morphine was for air hunger (6) COPD (chronic obstructive pulmonary disease): Status: Chronic Assessment and plan: Regimen as above (7) Tobacco dependence due to cigarettes: Status: Acute Assessment and plan: Nicotine patch (8) Ventral hernia without obstruction or gangrene: Status: Acute Assessment and plan: Patient has seen general surgery for possible intervention (9) Benign essential hypertension: Status: Acute Assessment and plan: Continue home furosemide, metoprolol succ, spironolactone History of Present Illness History of Present Illness Chief Complaint: shortness of breath Narrative: Noah French is a 69 year old man presenting July 15, sent in from pulmonology clinic out of concern for possible cardiac component of his ongoing respiratory failure and distress. Patient reports feeling sick and tired all the time. He has had multiple ED visits and hospitalizations for COPD exacerbations, and has recently been prescribed PO morphine for air hunger. He is tripoding on interview. He confirms that he has been taking his home meds including rivaroxaban for chronic atrial flutter. He feels he is working hard to breathe, and his ventral hernia is bothering him. He is an active tobacco smoker despite numerous attempts to quit. No chest pain, no N/V/D. In the ED he was mildly tachycardic 95, adequate SpO2 on room air. EKG showed atrial flutter with atrial rate > 300's. Echocardiogram done in ED showing mild LVH, EF 60-65%, generalized hypocontractility, other mild disease. CTA chest showed no PE, no acute process. Mild neutrophilic leukocytosis 12.40. VBG with elevated pCO2 high 50's, elevated lactate 3.2->3.6. Elevated BNP 1001. [facility] cardiology was consulted for ICU care, as [facility] is over capacity for ICU care; [facility] recommending PO load of amiodarone followed by daily dosing. He was given bronchodilators, diuresed, and started on CPAP. His heart rates continued to be elevated; he did not respond to metoprolol pushes and was given diltiazem. PFSH All Active Problems (Updated 07/15/25 @ 18:58 by To Barahona MD) Benign essential hypertension (Acute) Tobacco dependence due to cigarettes (Acute) Pneumonia due to gram-positive bacteria (Acute) Acute on chronic respiratory failure with hypoxemia (Acute) Dyspnea on exertion (Acute) Acute hypoxic respiratory failure (Acute) COPD exacerbation (Acute) Shortness of breath (Acute) Atrial flutter with rapid ventricular response (Acute) Back pain (Acute) Atrial fibrillation and flutter (Acute) Ventral hernia without obstruction or gangrene (Acute) Irregular heartbeat (Acute) Dog bite of hand (Acute) Chest pain (Acute) COPD (chronic obstructive pulmonary disease) (Chronic) Tooth abscess (Acute) Leg edema (Chronic) Cigarette smoker (Chronic) Atrial fibrillation (Chronic) Hypomagnesemia (Chronic) HTN (hypertension) (Chronic) Hypertriglyceridemia (Chronic) GERD (gastroesophageal reflux disease) (Chronic) Prediabetes (Acute) Degenerative disc disease, lumbar (Acute) Atrial flutter (Acute) Medical History Benign neoplasm of colon, unspecified Ulnar neuropathy Blepharitis History of hypokalemia Blepharitis of eyelid of left eye Sleep apnea Hx of adenomatous colonic polyps Obesity Alcohol abuse, in remission pt. states he still smokes Surgical History Hx of cardiac catheterization pt. unsure but states they went up through his leg vein to look at his heart Hx of inguinal hernia repair Hx of colonoscopy Social History Smoking/Tobacco Use Status: Current every day Tobacco Type: cigarettes Smoking packs per day: 2 Smoking cigarettes per day: 40.0 Smoking risk assessment performed?: Yes Alcohol Intake: current Alcohol Intake frequency: 3 or more drinks per day Alcohol type: beer Details: Reports 10 drinks per day Drug use: Never Substance use type: does not use Details: alcohol: t-3, 9 beers Housing: apartment Do you feel safe at home: Yes Additional Social history: lives alone, unable to assess privately Meds Allergies and Home Medications Allergies Allergy/AdvReac Type Severity Reaction Status Date / Time Sulfa (Sulfonamide Allergy Intermediate Skin Rash Verified 07/15/25 09:46 Antibiotics) ciprofloxacin Allergy Itching Verified 07/15/25 09:46 lisinopril AdvReac Mild cough Verified 07/15/25 09:46 mold AdvReac Other (See Uncoded 07/15/25 09:46 Comment) Home Medications ?Medication ?Instructions ?Recorded ?Confirmed ?Type albuterol sulfate 90 mcg/actuation 2 puff inhalation Q4H PRN PRN 08/25/15 07/15/25 History aerosol inhaler (ProAir HFA) omeprazole 20 mg capsule,delayed 20 mg PO DAILY 08/25/15 07/15/25 History release atorvastatin 20 mg tablet 20 mg PO QHS 03/28/23 07/15/25 History furosemide 40 mg tablet 40 mg PO DAILY 03/28/23 07/15/25 History spironolactone 25 mg tablet 25 mg PO DAILY 03/28/23 07/15/25 History magnesium oxide 400 mg PO BID 11/07/24 07/15/25 History rivaroxaban 20 mg tablet (Xarelto) See Rx Instructions .Route 11/26/24 07/15/25 Rx .COMPLEX #90 tabs ipratropium 0.5 mg-albuterol 3 mg 3 ml inhalation Q4H PRN shortness 01/22/25 07/15/25 Rx (2.5 mg base)/3 mL nebulization #30 mL soln icosapent ethyl 1 gram capsule 2 g PO BID 02/21/25 07/15/25 History (Vascepa) metoprolol succinate 100 mg 100 mg PO DAILY #90 tabs 05/01/25 07/15/25 Rx tablet,extended release 24 hr morphine 10 mg/5 mL oral solution 5 mg (2.5 mL) PO Q4H PRN dyspnea 05/01/25 07/15/25 Rx #100 mL budesonide 160 mcg-glycopyr 9 2 inh inhalation BID #10.7 grams 07/09/25 07/15/25 Rx mcg-formot 4.8 mcg/actuation HFA inhaler (Breztri Aerosphere) levofloxacin 750 mg tablet 750 mg PO DAILY #7 tabs 07/09/25 07/15/25 Rx prednisone 10 mg tablet 10 mg PO DAILY #34 tabs 07/09/25 07/15/25 Rx Exam Narrative Exam Narrative: General: This is a pleasant man in acute distress due to palpitations, shortness of breath and fatigue HEENT: Normocephalic, atraumatic. Erythematous facial lesions below eyes and on tip of nose CV: Irregular rate and irregular rhythm, tachycardic to 150, BLE 3+ edema Resp: Increased work of breathing after bronchodilators, CPAP being started Abd: soft, NTND, large ventral hernia reducible MSK: voluntary motion x4 Neuro: awake, alert, no focal deficits Results Labs 07/15/25 10:03 07/15/25 10:03 Labs: Laboratory Results - last 24 hr 07/15/25 07/15/25 10:03 11:40 WBC 12.40 H RBC 5.04 Hgb 16.0 Hct 48.1 MCV 95 MCH 31.7 MCHC 33.3 RDW 14.5 H Plt Count 218 MPV 10.3 Immature Gran % 1.1 Neutrophils % 85.2 Lymphocytes % 8.9 Monocytes % 4.1 Eosinophils % 0.4 Basophils % 0.3 Nucleated RBC % 0.0 Absolute Neutrophils 10.56 H Absolute Lymphocytes 1.10 L Absolute Monocytes 0.51 Absolute Eosinophils 0.05 Absolute Basophils 0.04 VBG pH 7.38 7.37 VBG pCO2 57 H 58 H VBG pO2 31 29 VBG HCO3 34 H 34 H VBG Total CO2 30 H 30 H VBG O2 Saturation 57 52 VBG Base Excess 8 H 8 H VBG Lactate 3.2 H* 3.6 H* Sodium 138 Potassium 4.8 Chloride 100 Carbon Dioxide 30.9 Anion Gap 7.3 BUN 19 Creatinine 1.00 Est GFR (CKD-EPI 2020) 74.13 Glucose 103 Calcium 9.2 Magnesium 1.9 Total Bilirubin 0.6 AST 19 ALT 22 Alkaline Phosphatase 66 Troponin I 11 12 NT-Pro-B Natriuret Pep 1001 H Total Protein 6.4 Albumin 3.9 TSH 1.46 Last Vital Signs Temp 36.9 C 07/15/25 09:47 Pulse 106 H 07/15/25 13:35 Resp 24 07/15/25 10:08 BP 106/68 07/15/25 13:35 Pulse Ox 92 07/15/25 10:08 VTE Prohylaxis Risk Level: Moderate/High Risk Contraindications: None Prophylaxis: Patient anticoagulated Time Spent Time spent with Patient: 55-74 minutes Time was spent: preparing to see the patient(eg.review tests), obtaining and/or reviewing separately otained hiistory, ordering medications,tests, procedures, referring, communicating with other health neurocritical care physician, indepentently interpreting results, counseling the patient and care coordination
[2025-07-15 18:04] VITALS: RESP 26
[2025-07-15] MEDS: Levalbuterol 1.25 MG/3 ML UPD VIAL (18:04)
[2025-07-15 18:24] VITALS: BP 109/71; PULSE 140
[2025-07-15] MEDS: dilTIAZem 25 MG/5 ML VIAL 15 MG IVP (18:24)
[2025-07-15] MEDS: MORPHine 10 MG/ML VIAL 2 MG IVP (18:48)
[2025-07-16] VITALS (243 sets, daily range): BP systolic 88–165; BP diastolic 46–140; PULSE 38–179; RESP 11–34; TEMP 36.6–37; O2SAT 84–98
[2025-07-16] MEDS: Atorvastatin 20 MG TAB PO (00:07)
[2025-07-16] MEDS: MORPHine Oral Solution 10 MG/5 ML CUP 5 MG PO (01:28)
[2025-07-16] MEDS: Amiodarone 200 MG TAB 600 MG PO (01:59)
[2025-07-16] MEDS: Metoprolol 25 MG TAB PO ×3 (02:26→16:28)
--- NOTE | 2025-07-16 03:33 | NUR.NOTE ---
Nursing Note: Pt refusing full skin assessment when brought up by this RN 'My skin is just fine, I don't want or need you to assess it'. Has his pants from home on. This RN offered pt paper scrub pants and/or a hospital gown and pt also refused these. Did explain to pt that he would need to change at [facility] for his procedures. He responded 'I'll change when that happens. I'm fine in my own pants until then'
[2025-07-16] MEDS: Lactated Ringers 500 ML IV (08:36)
--- NOTE | 2025-07-16 08:40 | PDOC.CMIN ---
Date of service: 07/16/25 Time of Service: 08:40 Care Management Initial Assmt Initial Assessment Reason for Hospitalization: atrial flutter Functional Status/Living Situation Patient Presentation: Noah was lying in bed when CM met with him. He was polite but not very talkative. Noah was admitted with atrial flutter. Initially his HR was in the 130s to 150s range however this afternoon it is down to the 60s and 70s for the most part. He has had periods where it is back in the 150s, however. A referral was made to [facility] and they have accepted him in transfer, pending bed availability. Noah lives alone in a 3rd floor apartment in [facility]. The building does not have an elevator, so he must climb 2 flights of stairs to enter. Noah has 4 children and several grandchildren, most of whom are local. When asked if the family was close, he answered we used to be. Noah does not receive any community services and does not use a cane, walker or wheelchair. He is retired, having worked at [employer] for the last 15 years of his career. He also did logging and construction work. Town of Residence: [facility] Resides with: Alone Significant Other/Family: Local Employment Status: Retired Instrumental Activities of Daily Living (ADLs): Independent Medications Medication Management: No Issues/Barriers identified Physical Functioning/Mobility Assistive Device: has Bipap Advance Directives Advance Directives: Do you have an Advance Directive: Y 07/29/20, 10:17 AD On File at [facility]: N 08/26/13, 09:09 Date Asked 07/15/25 07/15/25, 10:32 AD Date Reviewed COLST On File at [facility] COLST Date Scanned Code Status Resuscitation Status Full Code Portal Pt does not currently have a portal and education provided: Yes Insurance Coverage/Financial Issues Insurance: Medicare Care Team Visit Care Team Role Provider Type Seng Muniz Primary Care Provider [facility] STAFF PHYSICIAN DUTCH Starkey Emergency Provider PHYSICIANS ASSISTANT To Barahona MD Attending Provider [facility] STAFF PHYSICIAN Barry Stone Admit Provider NON[facility] STAFF PHYSICIAN Discharge Potential Discharge Needs: Other (transfer to [facility]) Anticipated Barriers to Discharge: None Identified Transportation: EMS Plan: Anticipate Noah will be transferred to [facility] when a bed becomes available. He will follow up with their providers and plan of care and transport via EMS. CM will follow and continue to support discharge planning Social Determinants of Health Screening Will the Patient Participate in the Screening?: Declined to provide PFSH All Active Problems (Updated 07/15/25 @ 18:58 by To Barahona MD) Benign essential hypertension (Acute) Tobacco dependence due to cigarettes (Acute) Pneumonia due to gram-positive bacteria (Acute) Acute on chronic respiratory failure with hypoxemia (Acute) Dyspnea on exertion (Acute) Acute hypoxic respiratory failure (Acute) COPD exacerbation (Acute) Shortness of breath (Acute) Atrial flutter with rapid ventricular response (Acute) Back pain (Acute) Atrial fibrillation and flutter (Acute) Ventral hernia without obstruction or gangrene (Acute) Irregular heartbeat (Acute) Dog bite of hand (Acute) Chest pain (Acute) COPD (chronic obstructive pulmonary disease) (Chronic) Tooth abscess (Acute) Leg edema (Chronic) Cigarette smoker (Chronic) Atrial fibrillation (Chronic) Hypomagnesemia (Chronic) HTN (hypertension) (Chronic) Hypertriglyceridemia (Chronic) GERD (gastroesophageal reflux disease) (Chronic) Prediabetes (Acute) Degenerative disc disease, lumbar (Acute) Atrial flutter (Acute) Medical History Benign neoplasm of colon, unspecified Ulnar neuropathy Blepharitis History of hypokalemia Blepharitis of eyelid of left eye Sleep apnea Hx of adenomatous colonic polyps Obesity Alcohol abuse, in remission pt. states he still smokes Surgical History Hx of cardiac catheterization pt. unsure but states they went up through his leg vein to look at his heart Hx of inguinal hernia repair Hx of colonoscopy Social History Smoking/Tobacco Use Status: Current every day Tobacco Type: cigarettes Smoking packs per day: 2 Smoking cigarettes per day: 40.0 Smoking risk assessment performed?: Yes Alcohol Intake: current Alcohol Intake frequency: 3 or more drinks per day Alcohol type: beer Details: Reports 10 drinks per day Drug use: Never Substance use type: does not use Details: alcohol: t-3, 9 beers Housing: apartment Do you feel safe at home: Yes Additional Social history: lives alone, unable to assess privately
[2025-07-16] MEDS: levETIRAcetam 250 MG TAB 750 MG PO (09:36)
[2025-07-16] MEDS: Rivaroxaban 10 MG TABLET 20 MG PO (09:36)
[2025-07-16] MEDS: Spironolactone 25 MG TAB PO (09:36)
[2025-07-16] MEDS: predniSONE 10 MG TAB PO (09:36)
[2025-07-16] MEDS: Amiodarone 200 MG TAB PO (09:36)
[2025-07-16] MEDS: Omeprazole 20 MG CAPCR PO (09:36)
[2025-07-16 09:37] LABS: Abs Immature Grans 0.08 10^3/uL (0.0-0.06); HCT 48.9 % (40.0-50.0); HGB 16.1 g/dL (13.5-17.5); Immature Grans % 0.9 %; MCH 30.7 pg (27.0-33.0); MCHC 32.9 % (32.0-36.0); MCV 93 fL (80-95); MPV 10.2 fL (8.0-11.0); Platelet Count 208 10^3/uL (130-400); RBC 5.24 10^6/uL (4.36-5.78); RDW 14.5 % (11.8-14.1); RDW-SD 49.5 fL; WBC 9.28 10^3/uL (4.4-10.8)
[2025-07-16] MEDS: Budesonide/Formoterol 160/4.5 6 GM 60 PUFF INH IH (09:37)
[2025-07-16 10:20] LABS: Magnesium 2.0 mg/dL (1.6-2.6)
[2025-07-16 10:21] LABS: ALT 22 U/L (10-49); AST 21 U/L (<34); Albumin 4.1 g/dL (3.2-5.0); Alkaline Phosphatase 66 U/L (46-116); Anion Gap 6.9 mmol/L (3-11); BUN 31 mg/dL (9-23); Bilirubin, Total 0.7 mg/dL (0.2-1.2); CO2 33.6 mmol/L (20.0-31.0); Calcium 9.5 mg/dL (8.3-10.6); Chloride 100 mmol/L (98-107); Glucose 101 mg/dL (74-106); Potassium 4.2 mmol/L (3.5-5.1); Sodium 140 mmol/L (136-145); Total Protein 6.9 g/dL (5.7-8.2)
--- NOTE | 2025-07-16 15:05 | PGE_ITS ---
Date of Service Date of service: 07/16/25 Time of Service: 08:00 Assessment and Plan Assessment and plan (1) Atrial flutter with rapid ventricular response: Status: Acute Assessment and plan: Longstanding aflutter, history of [address] Swift in cardiology clinic Some improvement in HR with metoprolol IV pushes and PO amiodarone, but returned to HR 150 Gave diltiazem 15 IV push after discussion with ED physician as patient is boarding in ED [place] [facility] [place] [facility] [place] loading amiodarone 600 q12h then complete load on outpatient dose Amiodarone 2nd day regimen changed to 400 q12h after dose missed Continue metoprolol 25 mg PO q6h Anticipate [facility] [place] for possible cardioversion (2) Acute on chronic respiratory failure with hypoxemia: Status: Acute Assessment and plan: CPAP at night. He has home CPAP Continue O2 supplementation to maintain SpO2 88-92% Continue bronchodilators, levalbuterol, Breztri (3) Pneumonia due to gram-positive bacteria: Status: Acute Assessment and plan: Continue levofloxacin and steroids started in clinic Prednisone 10 daily (4) Hypomagnesemia: Status: Chronic Assessment and plan: Chronic. Mg 1.9 on arrival. Hold home PO supplementation (5) Degenerative disc disease, lumbar: Status: Acute Assessment and plan: Chronic pain, not on narcotics Previous prescription for morphine was for air hunger While hospitalized, PRN morphine 5 mg PO (6) COPD (chronic obstructive pulmonary disease): Status: Chronic Assessment and plan: Regimen as above (7) Tobacco dependence due to cigarettes: Status: Acute Assessment and plan: Nicotine patch (8) Ventral hernia without obstruction or gangrene: Status: Acute Assessment and plan: Patient has seen general surgery for possible intervention (9) Benign essential hypertension: Status: Acute Assessment and plan: Continue home furosemide, spironolactone Hold home metoprolol succinate while on IR for rate control Subjective Subjective Interval history since last seen: Mr. French is sitting up in bed in the ED, very angry about not being able to eat, and very angry about his interpretation of what he has been told about what to expect. Family members at bedside. Patient's mood improved with food, since he will not have a bed available today at [facility] Exam Narrative Exam Narrative: General: This is a pleasant man in no acute distress HEENT: Normocephalic, atraumatic. Erythematous facial lesions below eyes and on tip of nose CV: Irregular rate and irregular rhythm, tachycardic to 120, BLE 3+ edema Resp: Increased work of breathing after bronchodilators, on 2L via oxymask Abd: soft, NTND, large ventral hernia reducible MSK: voluntary motion x4 Neuro: awake, alert, no focal deficits Objective Last Vital Signs Temp 36.6 C 07/16/25 13:00 Pulse 73 07/16/25 14:04 Resp 21 07/16/25 14:04 BP 92/68 L 07/16/25 14:04 Pulse Ox 89 L 07/16/25 14:04 Laboratory Results - last 24 hr 07/16/25 07/16/25 09:25 09:25 WBC 9.28 RBC 5.24 Hgb 16.1 Hct 48.9 MCV 93 MCH 30.7 MCHC 32.9 RDW 14.5 H Plt Count 208 MPV 10.2 Immature Gran % 0.9 Neutrophils % 72.5 Lymphocytes % 19.0 Monocytes % 5.7 Eosinophils % 1.5 Basophils % 0.4 Nucleated RBC % 0.0 Absolute Neutrophils 6.73 H Absolute Lymphocytes 1.76 Absolute Monocytes 0.53 Absolute Eosinophils 0.14 Absolute Basophils 0.04 VBG Lactate 2.7 H* Sodium 140 Potassium 4.2 Chloride 100 Carbon Dioxide 33.6 H Anion Gap 6.9 BUN 31 H Creatinine 1.23 H Est GFR (CKD-EPI 2020) 58.38 Glucose 101 Calcium 9.5 Magnesium 2.0 Cancelled Total Bilirubin 0.7 AST 21 ALT 22 Alkaline Phosphatase 66 Total Protein 6.9 Albumin 4.1 PAWSS Have you Been Recently Intoxicated or Drunk Within the Last 30 days?: Yes Have you Ever Experienced Previous Episodes of Alcohol Withdrawal?: No Have you ever Experienced Withdrawal Seizures?: No Have you ever Experienced Delirium Tremens(DT)s?: No Have you ever undergone Alcohol Rehabilitation Treatment (i.e, inpt ot outpatient treatment programs)?: No Have you ever Experienced Blackouts?: Yes Have you ever Combined Alcohol with other Downers within the last 90 days?: No Have you ever Combined Alcohol with any other Substance of Abuse during the last 90 days?: No Positive Blood Alcohol level on Presentation? [PCS.BAL]: No Evidence of Increased Autonomic Activity (i.e. HR>120, tremor, sweating, agitation, nausea)?: Yes Result: 3 VTE Prohylaxis Risk Level: Moderate/High Risk Contraindications: None Prophylaxis: Patient anticoagulated Time Spent with Patient Time Spent with Patient: 35-49 minutes Time was spent: preparing to see the patient(eg.review tests), obtaining and/or reviewing separately otained hiistory, ordering medications,tests, procedures, referring, communicating with other health doggy daycare activities director, indepentently interpreting results, counseling the patient and care coordination
--- NOTE | 2025-07-16 16:08 | PHA.REVIEW2 ---
Pharmacy Admission Review Admission Clinical Review Admission Pharmacy Review: Benign essential hypertension (Acute) Tobacco dependence due to cigarettes (Acute) Pneumonia due to gram-positive bacteria (Acute) Acute on chronic respiratory failure with hypoxemia (Acute) Atrial flutter with rapid ventricular response (Acute) Ventral hernia without obstruction or gangrene (Acute) Degenerative disc disease, lumbar (Acute) Sulfa (Sulfonamide Antibiotics) Allergy (Intermediate, Verified 07/15/25 09:46) Skin Rash ciprofloxacin Allergy (Verified 07/15/25 09:46) Itching lisinopril Adverse Reaction (Mild, Verified 07/15/25 09:46) cough mold Adverse Reaction (Uncoded 07/15/25 09:46) Other (See Comment) Resuscitation Status Full Code Height 5 ft 7 in Weight 117.934 kg Pharmacy Admission Review Renal Dosing Renal Dosing: BUN 31 mg/dL (9-23) H 07/16/25 09:25 Creatinine 1.23 mg/dL (0.73-1.18) H 07/16/25 09:25 Medications needing adjustments: Reviewed (CrCl ~ 70.6. No dosing adjustments needed at this time.) Anticoagulation Anticoagulation: Hgb 16.1 g/dL (13.5-17.5) 07/16/25 09:25 Hct 48.9 % (40.0-50.0) 07/16/25 09:25 Plt Count 208 10^3/uL (130-400) 07/16/25 09:25 Creatinine 1.23 mg/dL (0.73-1.18) H 07/16/25 09:25 DVT Prophylaxis: Reviewed (Patient is anticoagulated with Rivaroxaban 20mg PO QD.) Opiate Usage Evaluate Pain Scale/Pains Meds: Reviewed (Morphine oral solution 5mgPO Q4H PRN. One dose given thus far.) Relevant Labs Relevant Labs: Sodium 140 mmol/L (136-145) 07/16/25 09:25 Potassium 4.2 mmol/L (3.5-5.1) 07/16/25 09:25 Chloride 100 mmol/L (98-107) 07/16/25 09:25 Magnesium 2.0 mg/dL (1.6-2.6) 07/16/25 09:25 Magnesium Cancelled 07/16/25 09:25 Electrolytes, C-Reactive P, ESR: Reviewed DM Control DM Control: N/A Cardiac Review Cardiac Review: Troponin I 12 ng/L (<54) 07/15/25 11:40 NT-Pro-B Natriuret Pep 1001 pg/mL (<300) H 07/15/25 10:03 BP, HR, EF%: Reviewed (BP 92/68 today.) QTc Review QTc: Reviewed (QTc 433) IV to PO Switch IV Medications: Reviewed (No meds to switch at this time.) Home Meds Home Med List reviewed: Reviewed Current Meds Current Medication Order Review: Reviewed
--- NOTE | 2025-07-16 18:22 | W.PM.DS.N ---
Date of service: 07/16/25 Time of Service: 08:00 DS: Diagnosis Discharge Diagnosis (1) Atrial flutter with rapid ventricular response: Status: Acute Asessment and Plan: Longstanding aflutter, history of [address] Swift in cardiology clinic Some improvement in HR with metoprolol IV pushes and PO amiodarone, but returned to HR 150 Gave diltiazem 15 IV push after discussion with ED physician as patient is boarding in ED pending [facility] [place] [facility] advised loading amiodarone 600 q12h then complete load on outpatient dose Amiodarone 2nd day regimen changed to 400 q12h after dose missed Continue metoprolol 25 mg PO q6h Anticipate [facility] transfer for possible cardioversion (2) Acute on chronic respiratory failure with hypoxemia: Status: Acute Asessment and Plan: CPAP at night. He has home CPAP Continue O2 supplementation to maintain SpO2 88-92% Continue bronchodilators, levalbuterol, Breztri (3) Pneumonia due to gram-positive bacteria: Status: Acute Asessment and Plan: Continued levofloxacin and steroids started in clinic, consider holding levofloxacin for amiodarone QT prolongation risk Prednisone 10 daily (4) Hypomagnesemia: Status: Chronic Asessment and Plan: Chronic. Mg 1.9 on arrival. Hold home PO supplementation (5) Degenerative disc disease, lumbar: Status: Acute Asessment and Plan: Chronic pain, not on narcotics Previous prescription for morphine was for air hunger While hospitalized, PRN morphine 5 mg PO (6) COPD (chronic obstructive pulmonary disease): Status: Chronic Asessment and Plan: Regimen as above (7) Tobacco dependence due to cigarettes: Status: Acute Asessment and Plan: Nicotine patch (8) Ventral hernia without obstruction or gangrene: Status: Acute Asessment and Plan: Patient has seen general surgery for possible intervention (9) Benign essential hypertension: Status: Acute Asessment and Plan: Continue home furosemide, spironolactone Hold home metoprolol succinate while on IR for rate control Discharge Plan Disposition Patient Disposition: Transfer-Acute Inpatient Care Specific Acute Inpt Facility: [facility] Anticipated Discharge Date/Time: 07/16/25 18:16 Condition: Critical Discharge Details Reason For Visit: Aflutter RVR Admit Date/Time: 07/15/25 15:20 Admit Provider: Barry Stone Attending Provider: To Barahona Primary Care Provider: Seng Muniz Hospital Course Hospital Course: Noah French is a 69 year old man presenting July 15, sent in from pulmonology clinic out of concern for possible cardiac component of his ongoing respiratory failure and distress. He has chronic atrial flutter and takes rivaroxaban. On arrival he was tachycardic HR 95, with EKG showing atrial rate > 300. Elevated lactate, elevated BNP. [facility] cardiology was consulted and recommended transfer for possible cardioversion, as patient had cardioversion in 2022. At time of discharge he is awake, alert and his last PO intake was Jul 16 at 17:45. Home Meds and New Rx's Prescriptions: New amiodarone [Pacerone] 200 mg Tablet 400 mg PO BID Qty: 0 0RF Continued prednisone 10 mg tablet 10 mg PO DAILY Qty: 34 0RF Rx Instructions: Take 40mg (4 tablets) one a day for 4 days, 30mg (3 tablets) once a day for 3 days, 20mg (2 tablets) once a day for 3 days , 10mg (1 tablet) for 2 days, 5mg (0.5 tablets) for 2 days Breztri Aerosphere 160-9-4.8 mcg/actuation HFA aerosol inhaler 2 inh inhalation BID Qty: 10.7 12RF levofloxacin 750 mg tablet 750 mg PO DAILY Qty: 7 0RF spironolactone 25 mg tablet 25 mg PO DAILY atorvastatin 20 mg tablet 20 mg PO QHS furosemide 40 mg tablet 40 mg PO DAILY magnesium oxide 400 mg magnesium tablet 400 mg PO BID Xarelto 20 mg tablet See Rx Instructions .ROUTE .COMPLEX Qty: 90 3RF Dose Instruction: TAKE ONE TABLET BY MOUTH EVERY DAY Rx Instructions: TAKE ONE TABLET BY MOUTH EVERY DAY icosapent ethyl [Vascepa] 1 gram capsule 2 g PO BID omeprazole 20 MG capsule,delayed release(DR/EC) 20 mg PO DAILY albuterol sulfate [ProAir HFA] 200 PUFF HFA aerosol inhaler 2 puff Inhalation Q4H PRN PRN ipratropium-albuterol 0.5 mg-3 mg(2.5 mg base)/3 mL solution for nebulization 3 ml inhalation Q4H PRN (Reason: shortness) Qty: 30 0RF metoprolol succinate 100 mg tablet extended release 24 hr 100 mg PO DAILY Qty: 90 0RF Rx Instructions: increase dose morphine 10 mg/5 mL solution 5 mg PO Q4H MDD 30ml PRN (Reason: dyspnea) Qty: 100 0RF Discharge Instructions Instructions: Atrial flutter Activity:: Activity as Tolerated Equipment/Supplies:: No Equipment Needed Diet:: As Tolerated DS: Summary Time Spent with Patient providing and/or coordinating discharge services: Greater than 30 minutes Status at Discharge Functional status at discharge: uses cane/walker Overall status at discharge: patient is not back to baseline Mental Status: mental status grossly normal Speech and Movement: speech and movement normal Mood: congruent mood Affect: normal affect Quality:SDOH Health Related Social Needs: Health related social needs inadequate housing risk of homeless transpo insecurity house/econ circumstance daily activities lonely/isolated Health related social needs details Pt states he has a hard time with most ADLs, needs help. Does not feel his apartment is safe and healthy in general but it is especially unsafe for him r/t his activity intolerance/SOB/fatigue, specifically regarding being on the third floor. Health related social needs details: Pt states he has a hard time with most ADLs, needs help. Does not feel his apartment is safe and healthy in general but it is especially unsafe for him r/t his activity intolerance/SOB/fatigue, specifically regarding being on the third floor. Exam Narrative Exam Narrative: General: This is a pleasant man in no acute distress HEENT: Normocephalic, atraumatic. Erythematous facial lesions below eyes and on tip of nose CV: Irregular rate and irregular rhythm, tachycardic to 120, BLE 3+ edema Resp: Increased work of breathing after bronchodilators, on 2L via oxymask Abd: soft, NTND, large ventral hernia reducible MSK: voluntary motion x4 Neuro: awake, alert, no focal deficits Psych Mental Status: mental status grossly normal Speech and Movement: speech and movement normal Mood: congruent mood Affect: normal affect DS: Data Vitals/I&O Vitals and I&O: Vital Signs Temperature 36.6 C 07/16/25 13:00 Temperature Source Temporal Artery Scan 07/16/25 13:00 Pulse 67 07/16/25 16:31 Pulse 82 07/16/25 16:31 Respiratory Rate 21 07/16/25 16:31 Respiratory Effort Normal 07/16/25 13:00 Respiratory Depth Normal 07/16/25 13:00 Respiratory Pattern Normal 07/16/25 13:00 Blood Pressure 113/81 07/16/25 16:31 Blood Pressure Mean 93 07/16/25 16:31 Blood Pressure Position Sitting 07/16/25 13:00 Pulse Oximetry 92 07/16/25 16:31 Oxygen Delivery Method OxyMask 07/16/25 13:00 Oxygen Flow Rate 2 07/16/25 13:00 Fraction of Inspired Oxygen (FIO2) 30 07/16/25 03:10 Pain Level 0 07/16/25 13:00 Intake & Output 07/15/25 07/16/25 07/16/25 23:59 11:59 23:59 Intake Total 300 / 310 940 / 940 Output Total 1160 / 2710 450 / 575 125 / 575 Balance -860 / -2400 -450 / 365 815 / 365 Intake: IV 500 / 500 Oral 300 / 300 440 / 440 Output: Urine 1160 / 2710 450 / 575 125 / 575 Other: Urine Color Light Elena Urine Appearance Clear Urine Odor Normal Comment At times, is unable to get to the bathroom if he is trying to get inside and up to the third floor from outside. # Voids 1 1 Data Completed and Pending Pending Labs at Discharge: 07/15/25 07/15/25 07/16/25 10:03 11:40 09:25 WBC 12.40 H 9.28 RBC 5.04 5.24 Hgb 16.0 16.1 Hct 48.1 48.9 MCV 95 93 MCH 31.7 30.7 MCHC 33.3 32.9 RDW 14.5 H 14.5 H Plt Count 218 208 MPV 10.3 10.2 Immature Gran % 1.1 0.9 Neutrophils % 85.2 72.5 Lymphocytes % 8.9 19.0 Monocytes % 4.1 5.7 Eosinophils % 0.4 1.5 Basophils % 0.3 0.4 Nucleated RBC % 0.0 0.0 Absolute Neutrophils 10.56 H 6.73 H Absolute Lymphocytes 1.10 L 1.76 Absolute Monocytes 0.51 0.53 Absolute Eosinophils 0.05 0.14 Absolute Basophils 0.04 0.04 VBG pH 7.38 7.37 VBG pCO2 57 H 58 H VBG pO2 31 29 VBG HCO3 34 H 34 H VBG Total CO2 30 H 30 H VBG O2 Saturation 57 52 VBG Base Excess 8 H 8 H VBG Lactate 3.2 H* 3.6 H* 2.7 H* Sodium 138 140 Potassium 4.8 4.2 Chloride 100 100 Carbon Dioxide 30.9 33.6 H Anion Gap 7.3 6.9 BUN 19 31 H Creatinine 1.00 1.23 H Est GFR (CKD-EPI 2020) 74.13 58.38 Glucose 103 101 Calcium 9.2 9.5 Magnesium 1.9 2.0 Total Bilirubin 0.6 AST 19 ALT 22 Alkaline Phosphatase 66 Troponin I 11 12 NT-Pro-B Natriuret Pep 1001 H Total Protein 6.4 Albumin 3.9 TSH 1.46 07/16/25 09:25 WBC RBC Hgb Hct MCV MCH MCHC RDW Plt Count MPV Immature Gran % Neutrophils % Lymphocytes % Monocytes % Eosinophils % Basophils % Nucleated RBC % Absolute Neutrophils Absolute Lymphocytes Absolute Monocytes Absolute Eosinophils Absolute Basophils VBG pH VBG pCO2 VBG pO2 VBG HCO3 VBG Total CO2 VBG O2 Saturation VBG Base Excess VBG Lactate Sodium Potassium Chloride Carbon Dioxide Anion Gap BUN Creatinine Est GFR (CKD-EPI 2020) Glucose Calcium Magnesium Cancelled Total Bilirubin 0.7 AST 21 ALT 22 Alkaline Phosphatase 66 Troponin I NT-Pro-B Natriuret Pep Total Protein 6.9 Albumin 4.1 TSH PFSH All Active Problems (Updated 07/15/25 @ 18:58 by To Barahona MD) Benign essential hypertension (Acute) Tobacco dependence due to cigarettes (Acute) Pneumonia due to gram-positive bacteria (Acute) Acute on chronic respiratory failure with hypoxemia (Acute) Dyspnea on exertion (Acute) Acute hypoxic respiratory failure (Acute) COPD exacerbation (Acute) Shortness of breath (Acute) Atrial flutter with rapid ventricular response (Acute) Back pain (Acute) Atrial fibrillation and flutter (Acute) Ventral hernia without obstruction or gangrene (Acute) Irregular heartbeat (Acute) Dog bite of hand (Acute) Chest pain (Acute) COPD (chronic obstructive pulmonary disease) (Chronic) Tooth abscess (Acute) Leg edema (Chronic) Cigarette smoker (Chronic) Atrial fibrillation (Chronic) Hypomagnesemia (Chronic) HTN (hypertension) (Chronic) Hypertriglyceridemia (Chronic) GERD (gastroesophageal reflux disease) (Chronic) Prediabetes (Acute) Degenerative disc disease, lumbar (Acute) Atrial flutter (Acute) Medical History Benign neoplasm of colon, unspecified Ulnar neuropathy Blepharitis History of hypokalemia Blepharitis of eyelid of left eye Sleep apnea Hx of adenomatous colonic polyps Obesity Alcohol abuse, in remission pt. states he still smokes Surgical History Hx of cardiac catheterization pt. unsure but states they went up through his leg vein to look at his heart Hx of inguinal hernia repair Hx of colonoscopy Social History Smoking/Tobacco Use Status: Current every day Tobacco Type: cigarettes Smoking packs per day: 2 Smoking cigarettes per day: 40.0 Smoking risk assessment performed?: Yes Alcohol Intake: current Alcohol Intake frequency: 3 or more drinks per day Alcohol type: beer Details: Reports 10 drinks per day Drug use: Never Substance use type: does not use Details: alcohol: t-3, 9 beers Housing: apartment Do you feel safe at home: Yes Additional Social history: lives alone, unable to assess privately Time Spent with Patient Time Spent with Patient: <45 minutes Time was spent: preparing to see the patient(eg.review tests), obtaining and/or reviewing separately otained hiistory, ordering medications,tests, procedures, referring, communicating with other health care professional, indepentently interpreting results, counseling the patient and care coordination
== END 2025-07-16 19:30 | disposition short-term general hospital (02) ==
LOC: ER 10:33 → EDHOLD 07-16 07:41 → ICU 07-16 12:51
PROVIDERS: Physician Assistant; Admitting Provider Family Medicine; Emergency Provider Family Medicine; PCP Student in an Organized Health Care Education/Training Program; Responsible Provider Family Medicine; Visit Provider Family Medicine
DX: I48.92 Unspecified atrial flutter (principal); J96.21 Acute and chronic respiratory failure with hypoxia; J15.8 Pneumonia due to other specified bacteria; E83.42 Hypomagnesemia; J44.0 Chronic obstructive pulmonary disease with (acute) lower respiratory infection; F17.210 Nicotine dependence, cigarettes, uncomplicated; I10 Essential (primary) hypertension; K43.9 Ventral hernia without obstruction or gangrene; G89.29 Other chronic pain; I48.91 Unspecified atrial fibrillation; E78.1 Pure hyperglyceridemia; K21.9 Gastro-esophageal reflux disease without esophagitis; R73.03 Prediabetes; M51.360 Other intervertebral disc degeneration, lumbar region with discogenic back pain only; Z79.899 Other long term (current) drug therapy; Z79.01 Long term (current) use of anticoagulants; Z59.811 Housing instability, housed, with risk of homelessness; Z59.82 Transportation insecurity; Z59.9 Problem related to housing and economic circumstances, unspecified; R45.89 Other symptoms and signs involving emotional state
CPT/HCPCS: 00123; 36415; 71275; 80053; 82805; 93005; 93306; 94640; 96374; 96375; 96376; 99215; 99285; 83605; 83735; 83880; 84443; 84484; 85025; 93010; 94660; 94760; 99222; 99232; 99238; G0378; J1938; J2270; J7512; J7614